=== PATIENT | male | born 1945 | race Caucasian/White ===

== ENCOUNTER 2023-09-26 09:59 | Emergency (ER) | payer OTHER, SELFPAY ==
[2023-09-26] VITALS (8 sets, daily range): BP systolic 141–164; BP diastolic 67–85; PULSE 56; O2SAT 95; BMI 40.6
--- NOTE | 2023-09-26 10:54 | ED.GENMED ---
History of Present Illness
General
Chief Complaint: Weakness
Source: patient, spouse and family
Time Seen by Provider: 09/26/23 10:38
Travel History
Have you had any contact with someone who has COVID-19?: Yes
Comment: patient
Do you have any symptoms of coronavirus? Fever > 100 degrees, chills, cough, shortness of breath, sore throat, loss of taste or smell, muscle aches, or headache?: No
History of Present Illness
History of Present Illness:
78-year-old male with a history of mild vascular dementia is brought to the emergency room by family for evaluation of significant weakness. Patient tested positive for COVID about 10 days ago. Over the course of the past 10 days he has been
having progressive weakness. He typically gets himself up out of bed, dresses himself is able to ambulate without any assistive devices. However currently he required help from his dressing. He is unable to walk without significant
assistance. Patient is slow to answer questions. He is not able to provide any detailed history. Patient was prescribed an inhaler by his primary care provider about a week ago.
Past History
Past History
ED Past Medical History: Cancer (Melanoma), CVA, GERD, Hypercholesterolemia, Psychiatric (Anxiety) and Other (RA)
ED Past Surgical History: Orthopedic and Other (Left carotid endarterectomy January 2017)
Patient has exhibited threatening behavior?: No
PSI?: No
Social History
Tobacco: Former smoker (Quit in 1979)
Alcohol: Occasional
Drug: None
Personal:
Living: with family
Employment: Retired
Family History
Family History: Other (Noncontributory)
Phy Exam
Physical Exam
Physical Exam:
General: Awake but slow to answer questions
Vitals: unremarkable
Head: Atraumatic
Eyes: Pupils equal, EOMI
Throat: Airway intact, no exudates
Neck: Trachea midline
Lungs: Expiratory wheezing bilaterally
Heart: Regular rate, no murmurs
Abd: Soft, Nontender, No pulsatile mass
Neuro: Nonfocal
Skin: Warm, dry, no rash
Extremities: pulses equal b/l, trace edema
Course
Orders/Labs/Results
Orders:
Orders
09/26/23 10:02
Electrocardiogram (*1) Urgent
Reason for Study: Fatigue / Weakness
EKG- Treatment ONCE
09/26/23 10:53
Electrocardiogram (*1) Stat
Reason for Study: Other
Other Reason for Exam: pneumonia
Cardiac Monitoring- Treatment ONCE
0.9% Sodium Chloride 500 ml [Nss] 500 ml IV BOLUS
Ipratropium/Albuterol Sulfate [Duoneb] 3 ml INH R NOW STA
CR Chest - 2 Views Urgent
Comment:
Reason For Exam: cough, sob,
09/26/23 11:22
Complete Blood Count/With Diff Urgent
Comprehensive Metabolic Panel Urgent
Procalcitonin Urgent
PCT Algorithmm Indication: Respiratory
09/26/23 11:27
Urinalysis Reflex To Culture Urgent
Date Specimen was Collected: 09/26/23
Time Specimen was Collected: 11:26
09/26/23 13:19
Case Management Consult ONCE
Case Management Consult: Discharge Planning
Physical Therapy Consult [Pt Eval And Treat] Urgent
Activity Level: As Tolerated
Abnormal Lab Results
09/26/23
11:22
RBC 3.70 L 10^6/uL
(4.70-6.10)
Hgb 11.4 L g/dL
(13.0-18.0)
Hct 33.1 L %
(39.0-52.0)
Eosinophils % 7.1 H %
(0-6)
Chloride 108 H mmol/L
(98-107)
ALT 68 H U/L
(0-50)
Total Protein 6.2 L g/dl
(6.3-8.2)
09/26/23 11:22
09/26/23 11:22
Vital Signs
Initial and Last Documented VS:
Initial Vital Signs
Temp Pulse Resp BP Pulse Ox
97.5 F 56 16 161/83 18
09/26/23 10:00 09/26/23 10:00 09/26/23 10:00 09/26/23 10:00 09/26/23 10:00
Last Documented Vital Signs
Temp Pulse Resp BP Pulse Ox
97.5 F 57 12 164/74 100
09/26/23 10:00 09/26/23 13:00 09/26/23 13:00 09/26/23 13:00 09/26/23 13:00
MDM/Problems Addressed
Differential Diagnosis Includes:
UTI, renal failure, pneumonia, deconditioning
MDM/Problems Addressed:
Patient. Workup here does not fact patient has developed some deconditioning due to recent superinfection. Nursing. Patient declined. Patient was open to the idea of physical therapy for case management and physical therapy came to evaluate the
patient. Ultimately patient has decided to forego in-home physical therapy as his daughter is an occupational therapist and can provide all blood rehabilitation for him. Of note her physical therapist stated the patient's gait reminded her of the
patient has Parkinson's disease. I will pass this information along to his primary care provider for further investigation into the possibility of Parkinson's disease.
*Radiology
Radiology exam reviewed: preliminary read by ED provider (On my personal review chest x-ray has no acute disease)
*Pulse Oximetry
Patient hypoxic: no
*EKG
Interpreted by ED Provider?: Yes
Interpretation: abnormal
Heart Rate: 55
Rate: bradycardiac
Rhythm: sinus
Sibley: normal axis
Interval: normal interval
QRS Pattern: normal QRS
Ischemia: no ischemia
*Software Sales Manager Interpretation
Rate: bradycardiac
Interpretation: abnormal
Rhythm: sinus
*Critical Care Note
Total Time (30-74mins, 75-104mins- exclusive of procedures): Not Applicable
Update Note
Update Note:
radiology notes pneumonia. I sent prescription for augmentin. Left message on his 's phone #
ED Attending Note
-
Portions of this chart may have been created with voice recognition software.� Occasional wrong word or��sound alike� substitutions may have occurred due to the inherent limitations of voice recognition software.
Discharge Plan
Departure
Patient Disposition: Home (Routine Discharge)
Date of Disposition: 09/26/23
Time of Disposition: 14:52
Patient with high blood pressure during this ER visit?: Yes
Condition: Good
Discharge Problem:
Generalized weakness
Instructions: Generalized Weakness (DC), BLOOD PRESSURE
Prescriptions:
New
benzonatate 100 mg capsule
100 mg PO TID PRN (Reason: Cough) Qty: 20 0RF
amoxicillin-pot clavulanate 875-125 mg tablet
1 tab PO BID Qty: 14 0RF
No Action
dutasteride-tamsulosin [Marivel] 1 EACH capsule, ER multiphase 24 hr
1 cap PO DAILY
aspirin 81 MG tablet,delayed release (DR/EC)
81 mg PO DAILY
zolpidem 10 MG tablet
10 mg PO HSPRN PRN (Reason: insomnia) Qty: 10 0RF
Patient Comments:
09/23/2022: per pdmp, last filled 06/12/21, 30 tabs [facility] days from [facility]
escitalopram oxalate 20 MG tablet
20 mg PO DAILY
atorvastatin 80 MG tablet
80 mg PO QPM
risperidone 0.5 MG tablet
0.5 mg PO DAILY
albuterol sulfate 90 mcg/actuation Hfa Aerosol Inhaler
2 puff INHALATION R Q6 PRN (Reason: sob/wheezing)
pramipexole [Mirapex ER] 4.5 mg Tablet Extended Release 24 Hr
9 mg PO HS
Referrals:
Sage Ayers MD [Family Provider] -
Interventions
Interventions:
*General Assessment Last Done: 09/26/23 12:42
*Neglect/Abuse Screening Last Done: 09/26/23 12:41
*ED COVID-19 Vaccine History Last Done: 09/26/23 10:00
ED- Cardiac Assessment Last Done: 09/26/23 12:43
ED- Neurological Assessment Last Done: 09/26/23 12:41
[2023-09-26] MEDS: NSS 500 IV (11:25)
[2023-09-26] MEDS: DUONEB 3 ML INH (11:26)
[2023-09-26 11:37] LABS: Urine Albumin Negative (Neg - Trace); Urine Bilirubin Negative (Negative); Urine Character Clear (Clear); Urine Color Yellow; Urine Glucose Negative (Negative); Urine Ketone Negative (Negative); Urine Leukocyte Negative (Negative); Urine Nitrite Negative (Negative); Urine Occult Blood Negative (Negative); Urine Urobilinogen Negative (Neg - 1+)
[2023-09-26 11:37] LABS: % Basophils 0.6 % (0-2); % Eosinophils 7.1 % (0-6); % Immature Granulocytes 0.5 % (0-0.5); % Lymphocytes 24.8 % (20.5-51.1); % Monocytes 7.3 % (1.7-9.3); % Neutrophils 59.7 % (42.2-75.2); Absolute Basophils 0.1 10^3/uL (0-0.2); Absolute Eosinophils 0.6 10^3/uL (0-0.7); Absolute Monocytes 0.6 10^3/uL (0.1-0.6); Absolute Neutrophils 4.8 10^3/uL (1.4-6.5); Hematocrit 33.1 % (39.0-52.0); Hemoglobin 11.4 g/dL (13.0-18.0); Mean Corp Hgb Conc. 34.4 g/dL (33.0-37.0); Mean Corpuscular Hgb 30.8 pg (27.0-31.0); Mean Corpuscular Volume 89.5 fL (80.0-94.0); Mean Platelet Volume 9.6 fL (7.4-10.4); Nucleated Red Blood Cells % 0 % (-); Platelet Count 245 10^3/uL (130-400); Red Cell Dist. Width 12.3 % (11.5-14.5)
[2023-09-26 11:58] LABS: ALT (SGPT) 68 U/L (0-50); AST (SGOT) 54 U/L (17-59); Albumin 3.6 g/dl (3.5-5.0); Alkaline Phosphatase 115 U/L (38-126); Blood Urea Nitrogen 20 mg/dl (9-20); Calcium 8.6 mg/dl (8.4-10.2); Carbon Dioxide 29 mmol/L (22-30); Chloride 108 mmol/L (98-107); Estimated Creatinine Clearance 45 ml/min; Glucose 93 mg/dl (70-99); Potassium 4.8 mmol/L (3.5-5.1); Sodium 138 mmol/L (135-145); Total Bilirubin 0.4 mg/dl (0.2-1.3); Total Protein 6.2 g/dl (6.3-8.2); eGFR > 60.00
[2023-09-26 12:34] LABS: Procalcitonin 0.05 ng/ml (0.0-0.25)
--- NOTE | 2023-09-26 14:40 | CM ---
CM received consult for discharge planning. CM spoke with PT, discussed recommendation for home health, family not interested in SNF. CM met with patient and , initial assessment completed. Patient reports he lives with his who is always
home. Patients home is a single story residence, two steps to enter. Patient reports having a walker and shower rails. Patient denies history of VN or SNF. Patient confirms PCP Sage Ayers, pharmacy [facility]. CM discussed PT recommendation of
home health. Per patient and , their daughter is an OT who lives 20 minutes away and can work with patient. Patient declining home health at this time. CM discussed primary doctor can order VN if patient returns home and changes mind. Patient
and report they have good support from family and a neighbor. CM updated Hospitalist. CM will continue to follow for discharge planning needs.
Plan; home no needs, declining home health.
== END 2023-09-26 15:44 | disposition home or self-care (01) ==
LOC: EMR 09:59
PROVIDERS: EMERGENCY PHYSICIAN Emergency Medicine; FAMILY PHYSICIAN Internal Medicine
DX: R53.1 Weakness (principal); R26.2 Difficulty in walking, not elsewhere classified; U07.1 COVID-19; R03.0 Elevated blood-pressure reading, without diagnosis of hypertension; J18.9 Pneumonia, unspecified organism; F01.50 Vascular dementia, unspecified severity, without behavioral disturbance, psychotic disturbance, mood disturbance, and anxiety; G20.A1 Parkinson's disease without dyskinesia, without mention of fluctuations; E78.00 Pure hypercholesterolemia, unspecified; K21.9 Gastro-esophageal reflux disease without esophagitis; M06.9 Rheumatoid arthritis, unspecified; G47.30 Sleep apnea, unspecified; K57.90 Diverticulosis of intestine, part unspecified, without perforation or abscess without bleeding; K58.9 Irritable bowel syndrome, unspecified; N40.0 Benign prostatic hyperplasia without lower urinary tract symptoms; M19.90 Unspecified osteoarthritis, unspecified site; M79.7 Fibromyalgia; G25.81 Restless legs syndrome; G62.9 Polyneuropathy, unspecified; F41.9 Anxiety disorder, unspecified; F32.A Depression, unspecified; M43.22 Fusion of spine, cervical region; Z79.82 Long term (current) use of aspirin; Z85.820 Personal history of malignant melanoma of skin; Z86.73 Personal history of transient ischemic attack (TIA), and cerebral infarction without residual deficits; Z87.01 Personal history of pneumonia (recurrent); Z87.891 Personal history of nicotine dependence
CPT/HCPCS: 99284; 96360; 96361; 94640; 71046; 80053; 81003; 84145; 85025; 93005

== ENCOUNTER → 2023-11-08 09:00 | Outpatient (REF) | payer OTHER, SELFPAY | LOC: RAD 09:00 | PROVIDERS: ATTENDING PHYSICIAN Internal Medicine | DX: J18.9 Pneumonia, unspecified organism (principal); R05.3 Chronic cough | CPT/HCPCS: 71046; 74230; 92611 ==

== ENCOUNTER → 2024-02-02 15:33 | Outpatient (REF) | payer OTHER, SELFPAY | LOC: RAD 15:33 | PROVIDERS: ATTENDING PHYSICIAN Internal Medicine | DX: R05.3 Chronic cough (principal); Z91.89 Other specified personal risk factors, not elsewhere classified | CPT/HCPCS: 71046 ==

== ENCOUNTER 2024-02-13 11:11 | Outpatient (RCR) | payer OTHER, SELFPAY | END 2024-02-13 23:59 | disposition home or self-care (01) | LOC: RST 11:11 | PROVIDERS: ATTENDING PHYSICIAN Internal Medicine | DX: R13.12 Dysphagia, oropharyngeal phase (principal); R05.3 Chronic cough; Z91.89 Other specified personal risk factors, not elsewhere classified | CPT/HCPCS: 92610 ==

== ENCOUNTER 2024-04-09 09:34 | Emergency (ER) | payer OTHER, SELFPAY ==
[2024-04-09 09:48] VITALS: BP 132/80
--- NOTE | 2024-04-09 10:10 | ED.GENMED ---
History of Present Illness
General
Chief Complaint: Abdominal Symptoms
Source: patient
Exam Limitations: none
Time Seen by Provider: 04/09/24 09:50
History of Present Illness
History of Present Illness:
78-year-old male presents with abdominal pain nausea and vomiting starting 2 to 3 days ago. He notes normal bowel movements. He denies fever or chest pain. The pain is in the center upper abdomen. He states he cannot keep anything in. No known
sick contacts. No other complaints at this time
Past History
Past History
ED Past Medical History: Cancer (Melanoma), CVA, GERD, Hypercholesterolemia, Psychiatric (Anxiety) and Other (RA)
ED Past Surgical History: Orthopedic and Other (Left carotid endarterectomy January 2017)
Patient has exhibited threatening behavior?: No
PSI?: No
Social History
Tobacco: Former smoker (Quit in 1979)
Alcohol: Occasional
Drug: None
Personal:
Living: with family
Employment: Retired
Family History
Family History: Other (Noncontributory)
Phy Exam
Physical Exam
Physical Exam:
General: Well-appearing male no acute respiratory distress
HEENT: Normocephalic sclera anicteric supple
Heart: Regular rate and rhythm
Lungs: Clear no wheeze
Abdomen is soft tender to the epigastric and mid abdomen. No guarding rebound normal bowel
Extremities: No cyanosis or edema
Course
Orders/Labs/Results
Orders:
Orders
04/09/24 10:03
0.9% Sodium Chloride 1000 ml [Nss] 1,000 ml IV BOLUS
Ondansetron Injectable [Zofran] 4 mg IV NOW STA
04/09/24 10:05
CT Abd/pelvis W Iv Cont Urgent
Comment:
Reason For Exam: abdominal pain, vomiting
04/09/24 10:31
Complete Blood Count/With Diff Urgent
Comprehensive Metabolic Panel Urgent
Lipase Urgent
04/09/24 12:19
Pantoprazole [Protonix IV] 40 mg IV NOW STA
Abnormal Lab Results
04/09/24
10:31
RBC 3.95 L 10^6/uL
(4.70-6.10)
Hgb 12.4 L g/dL
(13.0-18.0)
Hct 36.1 L %
(39.0-52.0)
MCH 31.4 H pg
(27.0-31.0)
Absolute Neuts (auto) 7.0 H 10^3/uL
(1.4-6.5)
Lymphocytes % 18.5 L %
(20.5-51.1)
Glucose 109 H mg/dl
(70-99)
04/09/24 10:31
04/09/24 10:31
Vital Signs
Initial and Last Documented VS:
Initial Vital Signs
Temp Pulse Resp BP Pulse Ox
98.1 F 79 16 132/80 98
04/09/24 09:48 04/09/24 09:48 04/09/24 09:48 04/09/24 09:48 04/09/24 09:48
Last Documented Vital Signs
Temp Pulse Resp BP Pulse Ox
98.1 F 65 21 141/84 98
04/09/24 09:48 04/09/24 12:45 04/09/24 12:45 04/09/24 12:42 04/09/24 12:45
MDM/Problems Addressed
Differential Diagnosis Includes:
Abdominal pain with vomiting. Question viral illness gastritis versus bowel obstruction versus biliary colic
Check labs. Fluids ordered. CT pending
*Critical Care Note
Total Time (30-74mins, 75-104mins- exclusive of procedures): Not Applicable
Update Note
Update Note:
CT demonstrates distal esophageal thickening to suggest esophagitis. Patient reexamined labs reviewed without significant finding. Feeling better. Recommend Protonix at home and GI follow-up. Stable for
ED Attending Note
-
Portions of this chart may have been created with voice recognition software.� Occasional wrong word or��sound alike� substitutions may have occurred due to the inherent limitations of voice recognition software.
Discharge Plan
Departure
Patient Disposition: Home (Routine Discharge)
Date of Disposition: 04/09/24
Time of Disposition: 13:26
Patient with high blood pressure during this ER visit?: No
Discharge Problem:
Esophagitis
Instructions: Esophagitis
Prescriptions:
New
pantoprazole [Protonix] [address] for susp in packet
40 mg PO DAILY Qty: 30 0RF
No Action
dutasteride-tamsulosin [Marivel] 1 EACH capsule, ER multiphase 24 hr
1 cap PO DAILY
aspirin 81 MG tablet,delayed release (DR/EC)
81 mg PO DAILY
zolpidem 10 MG tablet
10 mg PO HSPRN PRN (Reason: insomnia) Qty: 10 0RF
Patient Comments:
09/23/2022: per pdmp, last filled 06/12/21, 30 tabs [facility]
escitalopram oxalate 20 MG tablet
20 mg PO DAILY
atorvastatin 80 MG tablet
80 mg PO QPM
risperidone 0.5 MG tablet
0.5 mg PO DAILY
albuterol sulfate 90 mcg/actuation Hfa Aerosol Inhaler
2 puff INHALATION R Q6 PRN (Reason: sob/wheezing)
pramipexole [Mirapex ER] 4.5 mg Tablet Extended Release 24 Hr
9 mg PO HS
benzonatate 100 mg capsule
100 mg PO TID PRN (Reason: Cough) Qty: 20 0RF
amoxicillin-pot clavulanate 875-125 mg tablet
1 tab PO BID Qty: 14 0RF
Referrals:
Sage Ayers MD [Family Provider] -
Activity Restrictions/Additional Instructions:
Drink clear liquids. Eat a bland diet. Use antacid as prescribed. Return if worse otherwise follow-up with GI
Interventions
Interventions:
*Risk Screen - Suicide Last Done: 04/09/24 09:48
*General Assessment Last Done: 04/09/24 10:33
*Neglect/Abuse Screening Last Done: 04/09/24 09:48
*ED COVID-19 Vaccine History Last Done: 04/09/24 10:33
[facility]-Ujuwvv-[facility]aim[facility] Assessment Last Done: 04/09/24 12:00
Discharge Date and Time
Print Language: NIGERIAN
[2024-04-09 10:20] VITALS: BP 127/78
[2024-04-09] MEDS: NSS 1000 IV (10:30)
[2024-04-09 10:33] VITALS: BMI 25.0
[2024-04-09] MEDS: ZOFRAN 4 MG IV (10:38)
[2024-04-09 10:53] LABS: % Basophils 0.4 % (0-2); % Eosinophils 2.7 % (0-6); % Immature Granulocytes 0.2 % (0-0.5); % Lymphocytes 18.5 % (20.5-51.1); % Monocytes 5.2 % (1.7-9.3); Absolute Eosinophils 0.3 10^3/uL (0-0.7); Absolute Lymphocytes 1.8 10^3/uL (1.2-3.4); Absolute Monocytes 0.5 10^3/uL (0.1-0.6); Hematocrit 36.1 % (39.0-52.0); Hemoglobin 12.4 g/dL (13.0-18.0); Mean Corp Hgb Conc. 34.3 g/dL (33.0-37.0); Mean Corpuscular Hgb 31.4 pg (27.0-31.0); Mean Corpuscular Volume 91.4 fL (80.0-94.0); Mean Platelet Volume 9.6 fL (7.4-10.4); Nucleated Red Blood Cells % 0 % (-); Platelet Count 249 10^3/uL (130-400); Red Blood Cell Count 3.95 10^6/uL (4.70-6.10); Red Cell Dist. Width 12.6 % (11.5-14.5); White Blood Cell Count 9.6 10^3/uL (4.8-10.8)
[2024-04-09 11:00] VITALS: BP 116/66
[2024-04-09 11:05] LABS: ALT (SGPT) 22 U/L (0-50); AST (SGOT) 28 U/L (17-59); Alkaline Phosphatase 81 U/L (38-126); Blood Urea Nitrogen 14 mg/dl (9-20); Calcium 9.3 mg/dl (8.4-10.2); Carbon Dioxide 28 mmol/L (22-30); Chloride 104 mmol/L (98-107); Estimated Creatinine Clearance 76 ml/min; Glucose 109 mg/dl (70-99); Lipase 124 U/L (23-300); Sodium 142 mmol/L (135-145); Total Bilirubin 1.1 mg/dl (0.2-1.3); Total Protein 6.4 g/dl (6.3-8.2); eGFR > 60.00
[2024-04-09] MEDS: PROTONIX IV 40 MG IV (12:39)
[2024-04-09 12:42] VITALS: BP 141/84
[2024-04-09 13:00] VITALS: BP 143/69
== END 2024-04-09 13:48 | disposition home or self-care (01) ==
LOC: EMR 09:34
PROVIDERS: Physician Assistant; EMERGENCY PHYSICIAN Student in an Organized Health Care Education/Training Program; FAMILY PHYSICIAN Internal Medicine
DX: K20.90 Esophagitis, unspecified without bleeding (principal); R10.10 Upper abdominal pain, unspecified; R11.2 Nausea with vomiting, unspecified; E78.00 Pure hypercholesterolemia, unspecified; F41.9 Anxiety disorder, unspecified; K21.00 Gastro-esophageal reflux disease with esophagitis, without bleeding; M06.9 Rheumatoid arthritis, unspecified; Z85.820 Personal history of malignant melanoma of skin; Z86.73 Personal history of transient ischemic attack (TIA), and cerebral infarction without residual deficits; Z87.891 Personal history of nicotine dependence; Z79.82 Long term (current) use of aspirin
CPT/HCPCS: 99285; 96375; 96361; 96374; 74177; 80053; 83690; 85025; Q9967

== ENCOUNTER 2024-08-02 08:20 | Outpatient (RCR) | payer OTHER, SELFPAY | END 2024-08-02 23:59 | disposition home or self-care (01) | LOC: RST 08:20 | PROVIDERS: ATTENDING PHYSICIAN Internal Medicine | DX: R13.12 Dysphagia, oropharyngeal phase (principal); Z86.73 Personal history of transient ischemic attack (TIA), and cerebral infarction without residual deficits | CPT/HCPCS: 92526; 92610 ==

== ENCOUNTER → 2024-08-09 08:26 | Outpatient (REF) | payer OTHER, SELFPAY | LOC: RST 08:26 | PROVIDERS: ATTENDING PHYSICIAN Internal Medicine | DX: R13.12 Dysphagia, oropharyngeal phase (principal) | CPT/HCPCS: 74230; 92611 ==

== ENCOUNTER 2024-08-16 18:18 | Inpatient (IN) | payer OTHER, SELFPAY ==
[2024-08-16] VITALS (15 sets, daily range): BP systolic 114–194; BP diastolic 59–88; BMI 23.5
[2024-08-16 15:03] LABS: % Basophils 0.2 % (0-2); % Eosinophils 1.7 % (0-6); % Immature Granulocytes 0.3 % (0-0.5); % Lymphocytes 5.1 % (20.5-51.1); % Monocytes 2.8 % (1.7-9.3); % Neutrophils 89.9 % (42.2-75.2); Absolute Eosinophils 0.2 10^3/uL (0-0.7); Absolute Lymphocytes 0.6 10^3/uL (1.2-3.4); Absolute Monocytes 0.3 10^3/uL (0.1-0.6); Absolute Neutrophils 10.3 10^3/uL (1.4-6.5); Hematocrit 36.6 % (39.0-52.0); Hemoglobin 12.5 g/dL (13.0-18.0); Mean Corp Hgb Conc. 34.2 g/dL (33.0-37.0); Mean Corpuscular Hgb 30.6 pg (27.0-31.0); Mean Corpuscular Volume 89.7 fL (80.0-94.0); Mean Platelet Volume 9.7 fL (7.4-10.4); Nucleated Red Blood Cells % 0 % (-); Platelet Count 236 10^3/uL (130-400); Red Blood Cell Count 4.08 10^6/uL (4.70-6.10); Red Cell Dist. Width 12.7 % (11.5-14.5); White Blood Cell Count 11.4 10^3/uL (4.8-10.8)
[2024-08-16 15:08] LABS: Urine Albumin 1+ (Neg - Trace); Urine Bilirubin Negative (Negative); Urine Character Clear (Clear); Urine Color Yellow; Urine Glucose Negative (Negative); Urine Ketone 1+ (Negative); Urine Leukocyte Negative (Negative); Urine Nitrite Negative (Negative); Urine Occult Blood Negative (Negative); Urine Urobilinogen Negative (Neg - 1+)
[2024-08-16 15:13] LABS: ALT (SGPT) 21 U/L (0-50); AST (SGOT) 27 U/L (17-59); Albumin 3.6 g/dl (3.5-5.0); Alkaline Phosphatase 85 U/L (38-126); Blood Urea Nitrogen 20 mg/dl (9-20); Calcium 9.2 mg/dl (8.4-10.2); Carbon Dioxide 25 mmol/L (22-30); Chloride 107 mmol/L (98-107); Estimated Creatinine Clearance 51 ml/min; Glucose 102 mg/dl (70-99); Potassium 3.9 mmol/L (3.5-5.1); Sodium 140 mmol/L (135-145); Total Bilirubin 0.8 mg/dl (0.2-1.3); eGFR > 60.00
[2024-08-16 15:25] LABS: Urine Squamous Cell 0-2 /LPF (Few)
[2024-08-16 15:26] LABS: Amphetamines Negative (Negative); Barbiturates Negative (Negative); Benzodiazepines Negative (Negative); Buprenorphine Negative (Negative); Cocaine Negative (Negative); Marijuana Negative (Negative); Methadone Negative (Negative); Methamphetamines Negative (Negative); Opiates Negative (Negative); Phencyclidine Negative (Negative); Tricyclic Antidepressants Negative (Negative); Urine Bacteria Few (Negative); Urine Red Blood Cell 0-2 /HPF (0-2); Urine White Cell 0-2 /HPF (0-5)
--- NOTE | 2024-08-16 15:27 | ED.GENMED ---
History of Present Illness
<Alize Espinoza PA-C - Last Filed: 08/16/24 23:19>
General
Chief Complaint: Change in Mental Status
Source: patient and family
Exam Limitations: altered mental status and dementia
Time Seen by Provider: 08/16/24 15:00
Nursing documentation reviewed up to this point in time: agreed with
History of Present Illness
History of Present Illness:
Patient is an 79-year-old male with history dementia, Parkinson's, CVA, hyperlipidemia presenting to the emergency department via EMS after unwitnessed fall. Patient unable to contribute much to history given altered mental status and history of
dementia. Patient's and daughter at bedside assisting with history. Apparently patient sustained a fall while in the bathroom today around 1:30 PM. Patient's did not witness the fall. It is unknown if patient lost consciousness or hit
head. However�patient has seemed somewhat altered, with slurred speech since the fall per his family. He is more confused than usual.
Patient's states the last time she saw him completely at his baseline was around 11 AM this morning. They do state that patient expressed last week that he 'wanted to end his life '. They are concerned that he may have taken a medication as
he is on this in the past
Patient denies any current complaints including headache, neck pain, chest pain, shortness of breath, extremity pain.
Patient is on any blood thinners
Past History
<Alize Espinoza PA-C - Last Filed: 08/16/24 23:19>
Past History
ED Past Medical History: Cancer (Melanoma), CVA, GERD, Hypercholesterolemia, Psychiatric (Anxiety) and Other (RA)
ED Past Surgical History: Orthopedic and Other (Left carotid endarterectomy January 2017)
Patient has exhibited threatening behavior?: No
PSI?: No
Social History
Tobacco: Former smoker (Quit in 1979)
Alcohol: Occasional
Drug: None
Personal:
Living: with family
Employment: Retired
Family History
Family History: Other (Noncontributory)
Review of Systems
<Alize Espinoza PA-C - Last Filed: 08/16/24 23:19>
Review of Systems
Allergies reviewed?: Yes
All Other Systems: ROS reviewed and negative except as documented in HPI and ROS
Phy Exam
<Alize Espinoza PA-C - Last Filed: 08/16/24 23:19>
Physical Exam
Physical Exam:
Vitals: Hypertensive, otherwise stable vital signs. Afebrile
General: Patient is sleepy but arousable to verbal stimuli
Skin: Warm and dry, no rashes or lesions
Head: Normocephalic. Mild abrasion to left lateral cheek
Eyes: Sclera nonicteric. EOMs intact. No nystagmus.
Throat: Protecting airway
Neck: Normal ROM, no cervical spine tenderness, no meningismus
Cardiac: Regular rate and rhythm, no murmurs. No anterior chest wall tenderness
Pulm: Normal respiratory effort, no wheezes, rales, rhonchi heard on exam. O2 saturation 94 on room air
Abdomen: Abdomen soft no abdominal tenderness.
Extremities: No evidence of cyanosis or edema. Bilateral upper and lower extremities atraumatic and nontender with full range of motion
Neuro: AAOx [address], not time. Mild slurring of speech. Drowsy but arousable to verbal stimuli. Strength 5 out of 5 in bilateral upper and lower extremities. Sensation fully intact.
Psychiatric: Normal affect.
Scores
<Alize Espinoza PA-C - Last Filed: 08/16/24 23:19>
NIH Stroke Score
Level of Consciousness: 1 - Arousable
LOC Questions: 1-Answers one correctly
LOC Commands: 0-Performs both correctly
Best Horizontal Gaze: 0-Normal
Visual Sims: 0=Normal, no visual loss
Facial Palsy: 0=Normal, symmetrical
Motor - Right Arm: 0=No drift 10 seconds
Motor - Left Arm: 0=No drift 10 seconds
Motor - Right Le-No drift 5 seconds
Motor - Left Le-No drift 5 seconds
Limb Ataxia: 0-Absent
Sensation: 0-Normal
Best Language: 0-No aphasia
Dysarthria: 1-Mild slurring
Extinction and Inattention: 0-No abnormality
Total Score:: 3
Course
<Alize Espinoza PA-C - Last Filed: 08/16/24 23:19>
Orders/Labs/Results
Orders:
Orders
08/16/24 14:41
Electrocardiogram (*1) Urgent
Reason for Study: Other
Other Reason for Exam: Possible Sepsis
Cardiac Monitoring- Treatment ONCE
EKG- Treatment ONCE
IV Insert/Care/Rem.- Treatment PRN
Straight cath- Treatment ONCE
08/16/24 14:50
Acetaminophen Urgent
Comment: ADD ON
Alcohol Urgent
Complete Blood Count/With Diff Urgent
Comprehensive Metabolic Panel Urgent
Salicylate Urgent
Comment: ADD ON
Urinalysis Reflex To Culture Urgent
Date Specimen was Collected: 08/16/24
Time Specimen was Collected: 14:41
Urine Drug Abuse Screen Urgent
Date Specimen was Collected: 08/16/24
Time Specimen was Collected: 14:42
Urine Microscopic Reflex Cult Urgent
08/16/24 15:25
CT HEAD STROKE ALERT W/o Cont Urgent
Comment:
Reason For Exam: fall, slurred speech
08/16/24 15:26
CT Cervical Spine W/o Iv Contr Urgent
Comment:
Reason For Exam: unwittnessed fall
CT Chest/abd/pel W Iv Cont Urgent
Reason For Exam: unwitnessed fall
Cardiac Monitoring- Treatment ONCE
08/16/24 15:29
Add On- LAB Urgent
Tests Added?: tylenol, aspirin, alcohol
08/16/24 16:22
CT Head & Neck Angio W/wo IV Stat
Comment:
Reason For Exam: stenosis
08/16/24 16:40
Troponin I Urgent
08/16/24 17:34
Aspirin 300 mg RECTAL DAILYPRN PRN
Aspirin Chewable [Low Strength Aspirin] 81 mg PO NOW STA
08/16/24 17:43
Admit/Transfer Patient As Directed
Co-Sign Provider:
Level of Care: Inpatient admission
Assign to:: Telemetry
Physician / Group: Elena Bills
Diagnosis: AMS
Reason for Telemetry: CVA/TIA
Date to Stop Telemetry: 08/19/24
Time to Stop Telemetry: 11:00
Reason for Hospitalization: AMS, CVA versus drug intoxication
Expected length of stay greater than two midnights?: Yes
ELOS- Estimated Length of Stay in days: 3
I certify the patient meets the requirements for IP care: Yes
PRN Pain Medication Management As Directed
May give lesser potent ordered pain med per pt: Yes
preference::
Protocol:: Medication orders for pain may be administered in a
manner that supports deferring to patient preference
when the pt is:
- Requesting an ordered lesser potent pain medication.
Least to most potent pain medications are defined
as: acetaminophen < NSAID < tramadol < opioids
(morphine, oxycodone, hydromorphone).
- Requesting a lesser dose of the same medication IF
ORDERED.
- Requesting a less intrusive route of administration
if both routes are prescribed by the provider (PO <
IV).
08/16/24 17:44
Code Status As Directed
Resuscitation Status: Do not resuscitate
Reached after discussion with pt or family/Healthcare POA: Yes
DNR Bracelet Application ONCE
08/16/24 18:30
COVID-19 Antigen Routine
Source: Nasal Swab
Influenza A+B Rapid Molecular Routine
FATEMEH Source: Nasal Swab
Specimen Description:
08/16/24 20:01
Acetaminophen [Tylenol/Feverall] 650 mg RECTAL Q4HPRN PRN
Acetaminophen [Tylenol] 650 mg PO Q4HPRN PRN
Enoxaparin Sodium [Lovenox] 40 mg SC QPM
Polyethylene Glycol Powder [Miralax] 17 grams PO DAILYPRN PRN
08/16/24 20:01
Case Management Consult ONCE
Case Management Consult: Discharge Planning
Comment: stroke/tia
DIETARY CONSULT Routine
Reason for Consult: stroke/TIA
NEUROLOGY CONSULT Urgent
Consulting Provider: Tiana Whitney
Was physician already notified: Yes
Activity As Directed
Activity Level: As Tolerated
NIH Stroke Scale As Directed
Directions: Per protocol
Comment: every shift and with any change in condition or mental status
Neurological Checks As Directed
Frequency: q4h
Additional Instructions:: q4h x 24h upon admission to the floor, then qshift & with any change in condition
and mental status
Patient Education As Directed
Type: Stroke education packet
Comment: provide to patient and family
Swallow Screening CVA/TIA ONLY As Directed
Comment: NPO until swallowing screening completed
If patient FAILS swallow screening:: NPO, Speech Therapy consult, Aspiration Precautions
If patient PASSES swallow screening, diet:: Cholesterol Lowering
Vital Signs As Directed
Frequency: Per unit guidelines
Ot Eval And Treat Routine
Pt Eval And Treat Routine
Activity Level: As Tolerated
Speech Therapy Eval & Treat Routine
DX Deep Vein Thrombosis Video Routine
08/17/24 06:00
Basic Metabolic Panel IN AM
Cardiovascular Evaluation IN AM
Complete Blood Count/No Diff IN AM
08/17/24 08:00
Aspirin Low Dose EC [Aspir Low (Enteric Coated)] 81 mg PO DAILY
Atorvastatin [Lipitor] 40 mg PO DAILY
Escitalopram Oxalate [Lexapro] 20 mg PO DAILY
Pantoprazole [Protonix] 40 mg PO DAILY
08/19/24 11:00
DC Protocol for Telemetry ONCE
Abnormal Lab Results
08/16/24
14:50
WBC 11.4 H 10^3/uL
(4.8-10.8)
RBC 4.08 L 10^6/uL
(4.70-6.10)
Hgb 12.5 L g/dL
(13.0-18.0)
Hct 36.6 L %
(39.0-52.0)
Absolute Neuts (auto) 10.3 H 10^3/uL
(1.4-6.5)
Absolute Lymphs (auto) 0.6 L 10^3/uL
(1.2-3.4)
Neutrophils % 89.9 H %
(42.2-75.2)
Lymphocytes % 5.1 L %
(20.5-51.1)
Glucose 102 H mg/dl
(70-99)
Total Protein 6.0 L g/dl
(6.3-8.2)
Urine Ketones 1+ A
(Negative)
Urine Bacteria (Reflex) Few A
(Negative)
Urine Albumin (Reflex) 1+ A
(Neg - Trace)
Salicylates < 1.0 L mg/dl
(2.0-20.0)
Acetaminophen < 10 L ug/ml
(10-30)
08/16/24 14:50
08/16/24 14:50
Vital Signs
Initial and Last Documented VS:
Initial Vital Signs
BP
160/83
08/16/24 14:34
Last Documented Vital Signs
Temp Pulse Resp BP Pulse Ox
99.0 F 74 16 127/59 95
08/16/24 21:19 08/16/24 21:19 08/16/24 21:19 08/16/24 21:19 08/16/24 21:19
<Shimon Loving MD - Last Filed: 08/16/24 15:38>
Orders/Labs/Results
Orders:
Orders
08/16/24 14:41
Electrocardiogram (*1) Urgent
Reason for Study: Other
Other Reason for Exam: Possible Sepsis
Cardiac Monitoring- Treatment ONCE
EKG- Treatment ONCE
IV Insert/Care/Rem.- Treatment PRN
Straight cath- Treatment ONCE
08/16/24 14:50
Acetaminophen Urgent
Comment: ADD ON
Alcohol Urgent
Complete Blood Count/With Diff Urgent
Comprehensive Metabolic Panel Urgent
Salicylate Urgent
Comment: ADD ON
Urinalysis Reflex To Culture Urgent
Date Specimen was Collected: 08/16/24
Time Specimen was Collected: 14:41
Urine Drug Abuse Screen Urgent
Date Specimen was Collected: 08/16/24
Time Specimen was Collected: 14:42
Urine Microscopic Reflex Cult Urgent
08/16/24 15:25
CT HEAD STROKE ALERT W/o Cont Urgent
Comment:
Reason For Exam: fall, slurred speech
08/16/24 15:26
CT Cervical Spine W/o Iv Contr Urgent
Comment:
Reason For Exam: unwittnessed fall
CT Chest/abd/pel W Iv Cont Urgent
Reason For Exam: unwitnessed fall
Cardiac Monitoring- Treatment ONCE
08/16/24 15:29
Add On- LAB Urgent
Tests Added?: tylenol, aspirin, alcohol
08/16/24 16:22
CT Head & Neck Angio W/wo IV Stat
Comment:
Reason For Exam: stenosis
08/16/24 16:40
Troponin I Urgent
08/16/24 17:34
Aspirin 300 mg RECTAL DAILYPRN PRN
Aspirin Chewable [Low Strength Aspirin] 81 mg PO NOW STA
08/16/24 17:43
Admit/Transfer Patient As Directed
Co-Sign Provider:
Level of Care: Inpatient admission
Assign to:: Telemetry
Physician / Group: Elena Bills
Diagnosis: AMS
Reason for Telemetry: CVA/TIA
Date to Stop Telemetry: 08/19/24
Time to Stop Telemetry: 11:00
Reason for Hospitalization: AMS, CVA versus drug intoxication
Expected length of stay greater than two midnights?: Yes
ELOS- Estimated Length of Stay in days: 3
I certify the patient meets the requirements for IP care: Yes
PRN Pain Medication Management As Directed
May give lesser potent ordered pain med per pt: Yes
preference::
Protocol:: Medication orders for pain may be administered in a
manner that supports deferring to patient preference
when the pt is:
- Requesting an ordered lesser potent pain medication.
Least to most potent pain medications are defined
as: acetaminophen < NSAID < tramadol < opioids
(morphine, oxycodone, hydromorphone).
- Requesting a lesser dose of the same medication IF
ORDERED.
- Requesting a less intrusive route of administration
if both routes are prescribed by the provider (PO <
IV).
08/16/24 17:44
Code Status As Directed
Resuscitation Status: Do not resuscitate
Reached after discussion with pt or family/Healthcare POA: Yes
DNR Bracelet Application ONCE
08/16/24 18:30
COVID-19 Antigen Routine
Source: Nasal Swab
Influenza A+B Rapid Molecular Routine
FATEMEH Source: Nasal Swab
Specimen Description:
08/16/24 20:01
Acetaminophen [Tylenol/Feverall] 650 mg RECTAL Q4HPRN PRN
Acetaminophen [Tylenol] 650 mg PO Q4HPRN PRN
Enoxaparin Sodium [Lovenox] 40 mg SC QPM
Polyethylene Glycol Powder [Miralax] 17 grams PO DAILYPRN PRN
08/16/24 20:01
Case Management Consult ONCE
Case Management Consult: Discharge Planning
Comment: stroke/tia
DIETARY CONSULT Routine
Reason for Consult: stroke/TIA
NEUROLOGY CONSULT Urgent
Consulting Provider: Tiana Whitney
Was physician already notified: Yes
Activity As Directed
Activity Level: As Tolerated
NIH Stroke Scale As Directed
Directions: Per protocol
Comment: every shift and with any change in condition or mental status
Neurological Checks As Directed
Frequency: q4h
Additional Instructions:: q4h x 24h upon admission to the floor, then qshift & with any change in condition
and mental status
Patient Education As Directed
Type: Stroke education packet
Comment: provide to patient and family
Swallow Screening CVA/TIA ONLY As Directed
Comment: NPO until swallowing screening completed
If patient FAILS swallow screening:: NPO, Speech Therapy consult, Aspiration Precautions
If patient PASSES swallow screening, diet:: Cholesterol Lowering
Vital Signs As Directed
Frequency: Per unit guidelines
Ot Eval And Treat Routine
Pt Eval And Treat Routine
Activity Level: As Tolerated
Speech Therapy Eval & Treat Routine
DX Deep Vein Thrombosis Video Routine
08/17/24 06:00
Basic Metabolic Panel IN AM
Cardiovascular Evaluation IN AM
Complete Blood Count/No Diff IN AM
08/17/24 08:00
Aspirin Low Dose EC [Aspir Low (Enteric Coated)] 81 mg PO DAILY
Atorvastatin [Lipitor] 40 mg PO DAILY
Escitalopram Oxalate [Lexapro] 20 mg PO DAILY
Pantoprazole [Protonix] 40 mg PO DAILY
08/19/24 11:00
DC Protocol for Telemetry ONCE
Abnormal Lab Results
08/16/24
14:50
WBC 11.4 H 10^3/uL
(4.8-10.8)
RBC 4.08 L 10^6/uL
(4.70-6.10)
Hgb 12.5 L g/dL
(13.0-18.0)
Hct 36.6 L %
(39.0-52.0)
Absolute Neuts (auto) 10.3 H 10^3/uL
(1.4-6.5)
Absolute Lymphs (auto) 0.6 L 10^3/uL
(1.2-3.4)
Neutrophils % 89.9 H %
(42.2-75.2)
Lymphocytes % 5.1 L %
(20.5-51.1)
Glucose 102 H mg/dl
(70-99)
Total Protein 6.0 L g/dl
(6.3-8.2)
Urine Ketones 1+ A
(Negative)
Urine Bacteria (Reflex) Few A
(Negative)
Urine Albumin (Reflex) 1+ A
(Neg - Trace)
Salicylates < 1.0 L mg/dl
(2.0-20.0)
Acetaminophen < 10 L ug/ml
(10-30)
08/16/24 14:50
08/16/24 14:50
Vital Signs
Initial and Last Documented VS:
Initial Vital Signs
BP
160/83
08/16/24 14:34
Last Documented Vital Signs
Temp Pulse Resp BP Pulse Ox
99.0 F 74 16 127/59 95
08/16/24 21:19 08/16/24 21:19 08/16/24 21:19 08/16/24 21:19 08/16/24 21:19
<Alize Espinoza PA-C - Last Filed: 08/16/24 23:19>
MDM/Problems Addressed
Differential Diagnosis Includes:
Not limited to: Arrhythmia, CVA/TIA, medication overdose, mechanical fall, UTI, electrolyte imbalance
MDM/Problems Addressed:
79-year-old male presenting after unwitnessed fall at home and found to be lethargic with mild slurred speech which initially occurred around 11:30 AM. No known loss of consciousness. Patient denies any current symptoms. Patient hypertensive,
otherwise with stable vital signs. On exam�patient is mildly somnolent although responds to verbal stimuli. He is alert and oriented x 2. He does have some mild slurred speech. No other focal neurodeficits. Cardiac/pulmonary exam unremarkable.
No evidence of extremity injury from fall. Given unwitnessed fall followed by notable slurred speech and somnolence concern for possible CVA versus possible medication intoxication. Patient has an NIH of 3. A Stroke alert was called at 3:25 PM.
Will check basic labs, troponin, tox screening and urinalysis. Will obtain imaging of head neck, chest/abdomen/pelvis given unwitnessed fall. EKG without acute ischemic changes
Update: CT head without any evidence of intracranial hemorrhage. Neurology was consulted and evaluated patient at bedside. Given NIH of 3 with somewhat uncertain onset of symptoms�TNK not indicated. Labs and remainder of imaging pending.
Update: Labs noted. Mild leukocytosis. Otherwise no clinically significant abnormalities. Troponin undetectable. Urine without any evidence of infection. Tylenol, salicylate, and UDS negative. Viral swabs also negative. Imaging without any
acute findings. Patient still remains mildly altered with mild slurred speech. At this point etiology unknown�toxic ingestion possible although cannot rule out central process including CVA. Patient will be admitted to the hospital for further
workup/management. Patient accepted to hospital service in stable condition.
Chronic conditions affecting care:
Parkinson's, dementia, history CVA
Acute Exacerbation and/or Progression of Chronic Illness:
N/A
<Alize Espinoza PA-C - Last Filed: 08/16/24 23:19>
*Radiology
Radiology exam reviewed: preliminary read by ED provider (CT head reviewed by me-no intracranial hemorrhage no) and radiology read reviewed
*Pulse Oximetry
Patient hypoxic: no
*EKG
Interpreted by ED Provider?: Yes
EKG Intrepretation Date: 08/16/24
Interpretation: normal
Comparison EKG: changes noted
Heart Rate: 78
Rate: normal
Rhythm: sinus and PAC's
QRS Pattern: normal QRS
Ischemia: no ischemia
*Powder Line Repairer Interpretation
Rate: normal
Interpretation: normal
Heart Rate: 72
*Critical Care Note
Total Time (30-74mins, 75-104mins- exclusive of procedures): Not Applicable
<Alize Espinoza PA-C - Last Filed: 08/16/24 23:19>
Patient Management
Discussion with other providers: Hospitalist and Sign Language Instructor (Neurology)
Escalation/DeEscalation of care consider admission/obs:
Admit indicated given ongoing altered mental status and neurologic deficits
ED Attending Note
<Alize Espinoza PA-C - Last Filed: 08/16/24 23:19>
-
Portions of this chart may have been created with voice recognition software.� Occasional wrong word or��sound alike� substitutions may have occurred due to the inherent limitations of voice recognition software.
<Shimon Loving MD - Last Filed: 08/16/24 15:38>
ED Attending Note
Patient seen and examined by attending physician: Yes
I performed the substantive portion of visit, reviewed & personally made and approve the management plan that is documented in note by myself or YONI.: Yes
ED Attending Note:
I have seen and evaluated the patient with a [id number] encounter. I have spoken to the [PA] and involved in the medical history, the physical exam, medical decision making.
Evaluation and management service: agree unless noted differently below.
Results interpretation: agree unless noted differently below.
79-year-old male with history of stroke with no deficits, dementia, hypertension, hyperlipidemia presenting to the emergency department change in mental status. Per family patient was last seen normal at 11 AM. Around 1 PM patient had a
unwitnessed fall in the bathroom. Since then he has had changes in his speech. Is complaining significant back pain. Per medics patient is taking his daughter's gabapentin. Otherwise history is limited
GENERAL: Sleepy but easily arousable
HEENT: normocephalic, extraocular movements intact, moist oral mucosa
NECK: normal inspection
Chest: No chest wall tenderness
RESPIRATORY: no respiratory distress, clear to auscultation bilaterally
CARDIOVASCULAR: regular rate and rhythm
ABDOMEN/: soft, non-distended, diffusely tender, no rebound or guarding
EXTREMITIES: non-tender, no edema/swelling
NEUROLOGIC: NIH 3, oriented x 2, equal strength in upper and lower extremities, normal sensation, normal [id number], mild dysarthria, no dysphasia
SKIN: warm
79-year-old man presenting to the emergency department change in mental status. On exam patient does have a NIH of 3 secondary to him being sleepy but easily arousable, disoriented and slight dysarthria. Concern for CVA given the changes that
occurred after the fall versus traumatic intracranial injury. Stroke alert called and patient taken over for stroke scans as well as trauma scans. Otherwise concern for toxic ingestion. Will check tox labs. Patient will need admission for
further evaluation and monitoring.
Discharge Plan
Departure
Patient Disposition: Admit
Date of Disposition: 08/16/24
Time of Disposition: 16:53
Presentation/result/management discussed w/ accepting MD/DO: Hospitalist
Discharge Problem:
Altered mental status, Fall
Interventions
Interventions:
*Risk Screen - Suicide Last Done: 08/16/24 14:43
*General Assessment Last Done: 08/16/24 14:43
*Neglect/Abuse Screening Last Done: 08/16/24 14:43
ED- Fall Risk Assessment Last Done: 08/16/24 14:54
*ED COVID-19 Vaccine History Last Done: 08/16/24 15:21
*Nursing Disposition Last Done: 08/16/24 20:16
ED- Pulmonary Assessment Last Done: 08/16/24 14:56
ED- Neurological Assessment Last Done: 08/16/24 18:35
ED- Cardiac Assessment Last Done: 08/16/24 14:54
ED Swallowing Screen Last Done: 08/16/24 18:15
Discharge Date and Time
Discharge Date/Time: 08/16/24 20:16
[2024-08-16 15:47] LABS: Acetaminophen < 10 ug/ml (10-30); Salicylate < 1.0 mg/dl (2.0-20.0)
[2024-08-16 15:48] LABS: Alcohol None Detected
--- NOTE | 2024-08-16 15:58 | CON.NEURO ---
Consultation
Order
Date of Consultation: 08/16/24
Requesting Provider: Alize Espinoza PA-C
Reason for Consult: Stroke alert
Paged in: 15:27
Neurology Consultation Note.
HPI: This is an 79-year-old man who presented to [facility] on 07/30/2024 with a fall and dysarthria. According to Ms. Nieves the patient was found on the floor around 1:00 today. Last time seen in usual state of health�around 11 AM
today. Following the fall patient was found to have dysarthria and lethargy.
Mr. Nieves reportedly has a history of severe depression as well as vascular dementia with parkinsonism. He has experienced rapid decline over the past 8-9 months, now requiring a minced moist diet due to dysphagia. The patient has lost 35 pounds
over 10 months and has increasing difficulty eating. He exhibits significant cognitive decline, no longer able to drive or manage finances for the past 6-8 months. The patient struggles with severe depression and has a history of suicidal ideation,
with one attempt two years ago involving probable insomnia pill ingestion. He has had gait freezing and difficulty initiating movement.
ER VS: 160/83-184/85, 75, Afebrile
EKG: NSR, QTc Int : 410 ms
PDMP:Zolpidem Tartrate 10 Mg 90 tabs filled in on 07/16/2024.
Labs: Glucose�102, normal sodium, creatinine�1.2, WBCs�11.4, urine tox�negative, unremarkable UA
CT head wo contrast-chronic left caudate nucleus and right MCA infarcts
CTA head/neck�pending
PMH: left caudate stroke(2017), DLP, GERD, Parkinsonism/dementia, MDD, history of SI, Malignant melanoma , RA, BCC, h/o severe lumbar scoliosis, diverticulosis
PSH: L CEA, Cervical fusion C5,C6, Spinal fusion L5,S1, bilateral cataract surgery, Left inguinal herniorrhaphy, Umbilical hernia repair, spinal stimulator(removed)
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
All: NKDA
ROS: Positive for weight loss
HENT: positive for trouble swallowing.
Gastrointestinal: Positive for dysphagia
Genitourinary: Positive for urinary incontinence
Skin: Negative for rash.
Neurological: positive for cognitive deficits, imbalance
Psychiatric/Behavioral: Positive for depression
Stroke Scale
1A Level of Consciousness:�2/3
1B LOC Questions:�0/2
1C LOC Commands:�0/2
2 Best Gaze:�0/2
3 Visual:�0/3
4 Facial Palsy:�0/3
5A Motor Arm LEFT:�0/4
5B Motor Arm RIGHT:�0/4
6A Motor Leg LEFT:�0/4
6B Motor Leg RIGHT:�0/4
7 Limb Ataxia:�0/2
8 Sensory:�0/2
9 Best Language:�0/3
10 Dysarthria:�2/2
11 Extinction/Inattention:�0/2
Assessment and Plan:
I. Multifactorial encephalopathy (vascular, toxic?, neurodegenerative. Not a candidate for IV TNK due to the timing of symptoms onset
II. 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
III. Vascular parkinsonism/dementia
IV. MDD
-Aspiration precautions.
-Avoid cerebral hypoperfusion, RELEASE MANAGER suppressants and anticholinergic medications.
-please check TSH, free T4, vit B12, ammonia, CK,
-ABG if continues to be lethargic
-Brain MRI wo peg
-Please follow-up CTA results
-Aspirin 81 mg once a day
-DVT prophylaxis.
I personally reviewed all radiology and labs along with past medical records pertinent to current medical problems. Total time spent in patient care is 60 minutes.
Thank you for allowing us to participate in the care of this patient. We will continue to follow. Please do not hesitate to contact us with any questions or concerns.
Subjective/Objective
Subjective Data
Date of Service: August 16, 2024
Objective Data
Vital Signs
Temp Pulse Resp BP Pulse Ox
36.9 C 75 22 141/60 98
08/16/24 14:43 08/16/24 15:15 08/16/24 15:15 08/16/24 15:00 08/16/24 15:15
Lab Results
08/16/24 14:50
08/16/24 14:50
Sodium 140 mmol/L (135-145) 08/16/24 14:50
Potassium 3.9 mmol/L (3.5-5.1) 08/16/24 14:50
BUN 20 mg/dl (9-20) 08/16/24 14:50
Glucose 102 mg/dl (70-99) H 08/16/24 14:50
Calcium 9.2 mg/dl (8.4-10.2) 08/16/24 14:50
Ur Buprenorphine Negative (Negative) 08/16/24 14:50
Patient Allergies
No Known Allergies Allergy (Verified 04/09/24 09:50)
Medications
-
Home Medications
�Medication �Instructions �Recorded
dutasteride 0.5 mg-tamsulosin ER 1 cap PO DAILY Urinary issue 04/01/15
0.4 mg capsule ext.release 24hr
mphas (Marivel)
aspirin 81 mg tablet,delayed 81 mg PO DAILY Blood clot 01/17/17
release prevention/tx
zolpidem 10 mg tablet 10 mg PO HSPRN PRN insomnia #10 12/24/17
tabs
escitalopram oxalate 20 mg tablet 20 mg PO DAILY Mental 04/06/20
Health/Anxiety
atorvastatin 80 mg tablet 80 mg PO QPM High cholesterol 04/07/20
risperidone 0.5 mg tablet 0.5 mg PO DAILY Mental 05/04/21
Health/Anxiety
albuterol sulfate 90 mcg/actuation 2 puff inhalation R Q6 PRN 09/23/22
aerosol inhaler sob/wheezing
pramipexole 4.5 mg tablet,extended 9 mg PO HS restless leg 09/24/22
release 24 hr (Mirapex ER)
amoxicillin 875 mg-potassium 1 tab PO BID #14 tabs 09/26/23
clavulanate 125 mg tablet
benzonatate 100 mg capsule 100 mg PO TID PRN Cough #20 caps 09/26/23
pantoprazole 40 mg granules 40 mg PO DAILY #30 ea 04/09/24
delayed-release for susp in packet
(Protonix)
Vital Signs and Labs
-
Vital Signs and Labs:
Vital Signs
Temp Pulse Resp BP Pulse Ox
36.9 C 89 21 189/79 96
08/16/24 14:43 08/16/24 16:00 08/16/24 16:00 08/16/24 15:57 08/16/24 16:00
Lab Results
08/16/24 14:50
08/16/24 14:50
Sodium 140 mmol/L (135-145) 08/16/24 14:50
Potassium 3.9 mmol/L (3.5-5.1) 08/16/24 14:50
BUN 20 mg/dl (9-20) 08/16/24 14:50
Glucose 102 mg/dl (70-99) H 08/16/24 14:50
Calcium 9.2 mg/dl (8.4-10.2) 08/16/24 14:50
Ur Buprenorphine Negative (Negative) 08/16/24 14:50
Home Medications
-
Home Medications
dutasteride 0.5 mg-tamsulosin ER 0.4 mg capsule ext.release 24hr mphas (Marivel) 1 cap PO DAILY Urinary issue 04/01/15
aspirin 81 mg tablet,delayed release 81 mg PO DAILY Blood clot prevention/tx 01/17/17
zolpidem 10 mg tablet 10 mg PO HSPRN PRN insomnia #10 tabs 12/24/17
escitalopram oxalate 20 mg tablet 20 mg PO DAILY Mental Health/Anxiety 04/06/20
atorvastatin 80 mg tablet 80 mg PO QPM High cholesterol 04/07/20
risperidone 0.5 mg tablet 0.5 mg PO DAILY Mental Health/Anxiety 05/04/21
albuterol sulfate 90 mcg/actuation aerosol inhaler 2 puff inhalation R Q6 PRN sob/wheezing 09/23/22
pramipexole 4.5 mg tablet,extended release 24 hr (Mirapex ER) 9 mg PO HS restless leg 09/24/22
amoxicillin 875 mg-potassium clavulanate 125 mg tablet 1 tab PO BID #14 tabs 09/26/23
benzonatate 100 mg capsule 100 mg PO TID PRN Cough #20 caps 09/26/23
pantoprazole 40 mg granules delayed-release for susp in packet (Protonix) 40 mg PO DAILY #30 ea 04/09/24
--- NOTE | 2024-08-16 17:13 | HPS.HSE ---
Family Physician
-
Family Physician: Sage Ayers
Chief Complaint
-
altered mental status
History of Present Illness
Mr. Farzad Nieves is a 79 yo man with hx Parkinson's disease, vascular dementia, CVA, HLD presents to the ER after an unwitnessed fall earlier today. Per , she found patient on floor of bathroom. He was awoken but very drowsy. She brought him
to the bed and decided to call 911.
On my exam patient wakes up to voice and answers simple questions but cannot keep eyes open.
Per , at PCP appointment on Tuesday, patient made note that he was ready to end life. concerned that he took extra medications. He slept 16 hours the other day and she thought the same.
No fevers/chills. Patient denies current pain. No chest pain. No shortness of breath. No nausea/vomiting/diarrhea, He states he took something to go to sleep earlier but cannot elaborate what it is. He is prescribed Ambien.
He denies current feelings of wanting to hurt himself.
Medical History
Past Medical History
Past Medical History: Reports Other ( CVA old 5 cm right lateral frontal infarct,/hs multiple tia's HLD, GERD, melanoma, anxiety/pression, RA, left carotid endarterectomy January 2017, former smoker quit 1979, PVD, sleep apnea/BiPAP, compression
fractures, DJD, chronic back pain, OA, BPH, diverticulosis/diverticulitis, IBS.)
Past Surgical History: Reports Other (Right hand surgery 2014, cervical fusion 2009, lower back surgery 1993, left shoulder repair bone spur and torn bicep 2012, right shoulder surgery 2012, L5-S1 transforaminal fusion, spinal cord stimulator,
melanoma removal to back 1980, 1983, right cataract extraction with lens implant, umbilical he)
Social History
Tobacco: Former Smoker (quit 40 years ago )
Alcohol: Occasional
Drug: None
Personal:
Living: With Family ( vianney 57 years )
Employment: Retired
Family History
Family History: Cancer (father cancer unknown type , mother old age )
Allergies / Home Medications
Allergies reflects when Allergies were last updated in [employer].
Home Medications with original date entered in [employer]
Allergy/Medication List:
Allergies
Allergy/AdvReac Type Severity Reaction Status Date / Time
No Known Allergies Allergy Verified 04/09/24 09:50
Home Medications
aspirin 81 mg tablet,delayed release 81 mg PO DAILY Blood clot prevention/tx 01/17/17
escitalopram oxalate 20 mg tablet 20 mg PO DAILY Mental Health/Anxiety 04/06/20
pantoprazole 40 mg granules delayed-release for susp in packet (Protonix) 40 mg PO DAILY #30 ea 04/09/24
atorvastatin 40 mg tablet (Lipitor) 40 mg PO DAILY 08/16/24
pramipexole 1.5 mg tablet,extended release 24 hr 1.5 mg PO HS 08/16/24
risperidone 1 mg tablet 1 mg PO HS 08/16/24
zolpidem 10 mg tablet 10 mg PO HS 08/16/24
Review of Systems
-
History Source: Patient
A 12 point ROS was completed and negative except as noted: Yes
Physical Exam
Vital Signs
Vital Signs
Temp Pulse Resp BP Pulse Ox
98.5 F 75 15 163/77 97
08/16/24 14:43 08/16/24 17:00 08/16/24 17:00 08/16/24 17:00 08/16/24 16:15
Physical Exam
General: Other (patient somnolent, awakens to voice and opens simple questions then falls back asleep )
HEENT: PERRLA
Respiratory: Clear; No Wheezes
Cardiac: S1/S2 and Regular Rhythm
GI: Soft and Non Tender
Skin: Warm and Dry; No Rash
Neuro: Sedated and Other (NADIA, tongue protrusion WNL, mild left facial droop? can lift up b/l LE, can wiggle toes - won't bend knees bilaterally )
Psych: Calm
Laboratory Results
-
08/16/24 14:50
08/16/24 14:50
Laboratory Results
Total Bilirubin 0.8 mg/dl (0.2-1.3) 08/16/24 14:50
AST 27 U/L (17-59) 08/16/24 14:50
ALT 21 U/L (0-50) 08/16/24 14:50
Alkaline Phosphatase 85 U/L (38-126) 08/16/24 14:50
Data Reviewed
-
Diagnostic Radiology: Report Reviewed by me
Lab Data: Labs Reviewed by me
Impression/Plan
-
Mr. Farzad Nieves is a 79 yo man with hx Parkinson's disease, vascular dementia, CVA, HLD presents to the ER after an unwitnessed fall earlier today. Per , she found patient on floor of bathroom. He was awoken but very drowsy. She brought him
to the bed and decided to call 911. Concern for CVA versus Ambien intoxication.
Triage VS: T 98.5, P 89, RR 21, BP 189/79, SpO2 96%
LABS: WBC 11.4, Hg 12.5, PLT 236, Na 140, K+ 3.9, CO2 25, Cr 1.2, Glucose 102, liver enzymes WNL
UTox negative; salicylates and tylenol negative
UA with 0-[address]
IMPRESSION:
No evidence of acute intracranial abnormality. Focal regions of old infarction, stable.
Paranasal sinus disease as described. This includes an air-fluid level in the right maxillary sinus, which would be suggestive of a component of acute sinusitis involving the right maxillary sinus.
CERVICAL SPINE CT
IMPRESSION: No evidence of acute fracture or dislocation.
CT A/P
IMPRESSION: No CT evidence for traumatic injury to the chest abdomen or pelvis.
See above narrative for additional findings.
Seen by Neurology in the ER, CT Head/Neck with contrast ordered.
Altered Mental Status - CVA versus medication intoxication
-patient lethargic on exam but awakens to voice, respiratory status stable. Possible left facial droop seen on exam otherwise generalized weakness noted
-patient denies taking aspirin this morning - will order now (rectal if cannot wake up enough to take PO)
-admit to telemetry
-appreciate Neurology consulting - CTA ordered
-neuro checks
-asa/statin
-PT/OT/ST
-hold any sedating medications - hold PROFESSOR OF RADIOLOGY Risperidone, Zolpidem, Pramipexole
-if patient remains altered tomorrow after med washout, consider MRI
- states that she will now administer patient's medications for him
-consider psych consult prior to DC if it becomes clarified that patient took extra medication on purpose. He currently denies any feelings of SI.
Depression
-PROFESSOR OF RADIOLOGY Lexapro
Essential HTN
-not on home BP medications
-will monitor
Chronic lower back pain per
DNR - discussed with on admission
DVT PPx Lovenox subQ
76 minutes spent on patient care
[2024-08-16 17:21] LABS: Troponin I < 0.012 ng/ml
[2024-08-16] MEDS: LOW STRENGTH ASPIRIN 81 MG PO (18:28)
[2024-08-16 18:47] LABS: COVID-19 Antigen Negative (Negative)
--- NOTE | 2024-08-16 20:00 | PTCARENOTE ---
Pt arrived on unit from ED via stretcher. Patient pulled over to bed. Patient confused and placed on bed alarm. Patient placed on tele box #25 in NSR. Care ongoing.
--- NOTE | 2024-08-16 21:30 | PTCARENOTE ---
Patient family at the bedside. This RN attempted to perform swallow screen per protocol. Family told this RN that they had just tried giving him water after leaving room and his coughing was due to drinking water and they refused the swallow screen.
Speech to see patient tomorrow for evaluation. Patient's daughter very adamant that the patient receive IV fluids since he is not drinking or eating. Family informed by this RN that she will notify the BRIDAL GOWN FITTER on duty about their requests for IV fluids.
Patient's daughter then approached the nurse's station asking if she can 'speak with someone who knows what is going on.' This RN attempted to explain that an order would be needed for IV fluids and was currently reviewing the patient's orders and
messaging the BRIDAL GOWN FITTER about the family's concerns. Patient's daughter stated, 'How hard is it to get a bag of IV fluids and how long does it take?' Charge nurse attempted to deescalate situation by explaining multiple times an order would be needed.
Patient's daughter still at nurse's station and escalating her voice saying, 'My dad can not eat or drink, he needs fluids. We want him to get fluids.' Patient's daughter asked to return to room while this RN communicated with the BRIDAL GOWN FITTER. Patient's
daughter asked to speak with booking supervisor. Barber Apprentice contacted by charge nurse to speak with family. Patient's daughter than came out of the patient's room, got in the face of the charge nurse, and followed her down the varner demanding she tell her
her name. Beth lagos called. Patient and family informed that an order for IV fluids was placed and waiting to be verified by pharmacy. IV fluids hung and family left for the night. Care ongoing.
[2024-08-16] MEDS: LR 1000 IV (21:48)
[2024-08-16] MEDS: LOVENOX 40 MG SC (21:50)
--- NOTE | 2024-08-16 22:32 | W.PN.UPDATE ---
Update Note
Progress Note Update
2114 RN reported patient family insisting patient to have IVF as he hasn't been eating or drinking. Electrolytes noted, Discussed with Dr Bills, LR @100 cc/hr ordered
15 minutes later Code purple was called
Charge nurse reports family got too loud and demanding with the nurses regarding the IVF. Talked to the family and assured the fluids are ordered already and requires time to get it from the pharmacy. Also addressed and assured electrolytes and VS
are stable.
Nsg Calculus Teacher counseled them as well.
[2024-08-17] VITALS (8 sets, daily range): BP systolic 106–153; BP diastolic 53–80; PULSE 63; O2SAT 95; BMI 23.5
[2024-08-17 07:02] LABS: Hematocrit 33.5 % (39.0-52.0); Hemoglobin 11.6 g/dL (13.0-18.0); Mean Corp Hgb Conc. 34.6 g/dL (33.0-37.0); Mean Corpuscular Hgb 31.1 pg (27.0-31.0); Mean Corpuscular Volume 89.8 fL (80.0-94.0); Mean Platelet Volume 9.9 fL (7.4-10.4); Platelet Count 208 10^3/uL (130-400); Red Blood Cell Count 3.73 10^6/uL (4.70-6.10); Red Cell Dist. Width 12.8 % (11.5-14.5); White Blood Cell Count 6.6 10^3/uL (4.8-10.8)
[2024-08-17 07:25] LABS: Blood Urea Nitrogen 23 mg/dl (9-20); Calcium 8.7 mg/dl (8.4-10.2); Carbon Dioxide 25 mmol/L (22-30); Chloride 106 mmol/L (98-107); Estimated Creatinine Clearance 56 ml/min; Glucose 95 mg/dl (70-99); HDL Cholesterol 34 mg/dl; LDL Cholesterol, Calculated 54 mg/dl; Potassium 3.9 mmol/L (3.5-5.1); Sodium 140 mmol/L (135-145); Total Cholesterol 111 mg/dl (50-199); Triglyceride 115 mg/dl (10-149); Very Low Density Lipoprotein 23 mg/dl (0-30); eGFR > 60.00
--- NOTE | 2024-08-17 09:55 | PTOTSP ---
Speech Language Pathology
Pt seen for clinical bedside swallow evaluation. Well known to DIRECTOR PAYER from outpatient VSE completed last week (08/09/24). Findings: responsive aspiration of thin liquids via tsp, silent aspiration of puree, and supraglottic penetration with thin
liquids via cup/consecutive straw sips and mildly thick liquids via tsp. Given lack of PNA, minced/moist solids and thin liquids with consideration for outpatient dysphagia tx recommended. Previous VSE completed 11/08/23 with aspiration of thin and
mildly thick liquids.
Pt reported coughing at home with minced/moist solids and mostly consuming pureed solids, as he did not note coughing and this was more comfortable for him. P.O. trials of puree and thin liquids via cup provided. No oral difficulty noted with
limited trials. Occasional cough with thin liquids noted. Did not trial advanced solids given report of intolerance of minced/moist solids at home.
Pt is at a known risk for aspiration. Long discussion was held after VSE last week with pt and in fluoro suite with daughter on facetime. Discussed that as pt is not developing PNA, can consider continuing diet with known risks of aspiration
and family was in agreement at that time. CT of chest did not note any PNA currently.
Recommend:
(1) IDDSI Level 4 (Puree) and thin liquids given lack of PNA, knowing that aspiration possible
(2) Aspiration precautions: sit upright, small single cup sips, alternate solids and liquids, avoid thin liquids via tsp such as broth-based soups
(3) Meds whole in puree
(4) Consider outpatient dysphagia tx
(5) DIRECTOR PAYER to continue to follow
[2024-08-17] MEDS: LIPITOR 40 MG PO (10:07)
[2024-08-17] MEDS: PROTONIX 40 MG PO (10:07)
[2024-08-17] MEDS: ASPIR LOW (ENTERIC COATED) 81 MG PO (10:07)
[2024-08-17] MEDS: LEXAPRO 20 MG PO (10:07)
[2024-08-17 10:33] LABS: Glycohemoglobin (HgbA1c) 5.3 % (4.0-5.6)
--- NOTE | 2024-08-17 12:59 | W.PN.HOSP.TC ---
Today's Communication/Plan
-
Monitor vital signs see plan
Called spouse, left voicemail
Continue aspirin
MRI pending
Neurology to see today
PT/OT, speech therapy
Initiate pur�ed diet per speech recommendation
Assessment / Plan
Assessment / Plan
General: No acute distress
HEENT: PERRLA
Respiratory: Clear; No Wheezes
Cardiac: S1/S2 and Regular Rhythm
GI: Soft and Non Tender
Skin: Warm and Dry; No Rash
Neuro: AO x 2 to 3
Psych: Calm
Altered Mental Status; rule out CVA/TIA.
Could also be secondary to medication use
Appears to be much more awake and alert
Continue aspirin
MRI pending
Neurology following
CT scan without any bleed. Defer any carotid ultrasound to neurology
-neuro checks
-asa/statin
-PT/Ot
Per speech recent VSE with some aspiration. Family is aware. Speech recommended pur�ed diet with thin liquid
-hold any sedating medications - hold AUTOMATIC PRINT DEVELOPER Risperidone, Zolpidem, Pramipexole
Depression
-AUTOMATIC PRINT DEVELOPER Lexapro
Essential HTN
-not on home BP medications
-will monitor
Carotid� stenosis/left CEA 2016
History of melanoma with removal to back
History of PVD
Chronic lower back pain per
Suspect cognitive impairment
DNR - discussed with on admission
DVT PPx Lovenox subQ
Anticipated Discharge: Within 24 hours
Subjective/Interval History
-
Date of Service: August 17, 2024
Denies headache
Objective Data
-
Labs:
Laboratory Results
08/17/24
06:28
WBC 6.6
Hgb 11.6 L
Hct 33.5 L
Plt Count 208
Sodium 140
Potassium 3.9
Chloride 106
Carbon Dioxide 25
BUN 23 H
Creatinine 1.1
Glucose 95
Calcium 8.7
Vital Signs:
Vital Signs
Temp Pulse Resp BP Pulse Ox
97.4 F 69 18 117/53 97
08/17/24 11:09 08/17/24 11:09 08/17/24 11:09 08/17/24 11:09 08/17/24 11:09
--- NOTE | 2024-08-17 14:51 | W.PN.NEURO.1 ---
Addendum entered and electronically signed by Tiana Whitney MD 08/18/24 16:07:
please disregard the note
Original Note:
Today's Communication / Plan
-
.
Subjective/Objective
Subjective Data
Date of Service: August 17, 2024
Neurology Consultation Note.
HPI: This is an 79-year-old man who presented to [facility] on 07/30/2024 with a fall and dysarthria. According to Ezequiel the patient was found on the floor around 1:00 today. Last time seen in usual state of health�around 11 AM
today. Following the fall patient was found to have dysarthria and lethargy.
CTA head/neck�multifocal extra and intracranial atherosclerosis including right ICA 57% stenosis
PMH: left caudate stroke(2017), DLP, GERD, Parkinsonism/dementia, MDD, history of SI, Malignant melanoma , RA, BCC, h/o severe lumbar scoliosis, diverticulosis
PSH: L CEA, Cervical fusion C5,C6, Spinal fusion L5,S1, bilateral cataract surgery, Left inguinal herniorrhaphy, Umbilical hernia repair, spinal stimulator(removed)
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
All: NKDA
ROS: Positive for weight loss
HENT: positive for trouble swallowing.
Gastrointestinal: Positive for dysphagia
Genitourinary: Positive for urinary incontinence
Skin: Negative for rash.
Neurological: positive for cognitive deficits, imbalance, leg stiffness.
Psychiatric/Behavioral: Positive for depression
General: Masked facies.
Cardio: Regular rate. Extremities are without cyanosis or edema.
Neuro:
Mental Status: Alert, oriented to person, place, month, year. Date was incorrect. Impaired attention and preserved comprehension. Increased processing time. Follows simple requests consistently. Nonfluent. No hemineglect.
Cranial Nerves: Pupils are equally round, surgical. EOMs full. Visual fernandez full to confrontation. No ptosis. No nystagmus. V1-V3 intact to light touch and pinprick bilaterally, symmetric. Face symmetric. Gait hearing AU. The palate
elevated well. SCMs and traps 5/5. Tongue midline. Mild dysarthria.
Motor: Increased motor tone in upper and lower extremities.
Reflexes: Bilateral grasp
Sensory: Normal light touch, proprioception at the toes
Coordination: No dysmetria
Gait: deferred
Assessment and Plan:
I. Multifactorial encephalopathy (vascular, toxic?, neurodegenerative. Not a candidate for IV TNK due to the timing of symptoms onset
II. 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
III. Vascular parkinsonism/dementia
IV. MDD
-Aspiration precautions.
-Dysphagia evaluation
-Psychiatry consult
-Avoid dopamine blocking agents.
-Outpatient neuropsychological evaluation if not done already
-Continue aspirin 81 mg once a day
-Please recall neurology service if acute findings are present on brain MRI
-PT
-DVT prophylaxis.
I personally reviewed all radiology and labs along with past medical records pertinent to current medical problems. Total time spent in patient care is 45 minutes.
Thank you for allowing us to participate in the care of this patient. Please do not hesitate to contact us with any questions or concerns.
Objective Data
Vital Signs
Temp Pulse Resp BP Pulse Ox
36.3 C 69 18 117/53 97
08/17/24 11:09 08/17/24 11:09 08/17/24 11:09 08/17/24 11:09 08/17/24 11:09
Lab Results
08/17/24 06:28
08/17/24 06:28
Sodium 140 mmol/L (135-145) 08/17/24 06:28
Potassium 3.9 mmol/L (3.5-5.1) 08/17/24 06:28
BUN 23 mg/dl (9-20) H 08/17/24 06:28
Glucose 95 mg/dl (70-99) 08/17/24 06:28
Calcium 8.7 mg/dl (8.4-10.2) 08/17/24 06:28
LDL Cholesterol, Calc 54 mg/dl 08/17/24 06:28
Ur Buprenorphine Negative (Negative) 08/16/24 14:50
Patient Allergies
No Known Allergies Allergy (Verified 04/09/24 09:50)
Vital Signs and Labs
-
Vital Signs and Labs:
Vital Signs
Temp Pulse Resp BP Pulse Ox
36.3 C 69 18 117/53 97
08/17/24 11:09 08/17/24 11:09 08/17/24 11:09 08/17/24 11:09 08/17/24 11:09
Lab Results
08/17/24 06:28
08/17/24 06:28
Sodium 140 mmol/L (135-145) 08/17/24 06:28
Potassium 3.9 mmol/L (3.5-5.1) 08/17/24 06:28
BUN 23 mg/dl (9-20) H 08/17/24 06:28
Glucose 95 mg/dl (70-99) 08/17/24 06:28
Calcium 8.7 mg/dl (8.4-10.2) 08/17/24 06:28
LDL Cholesterol, Calc 54 mg/dl 08/17/24 06:28
Ur Buprenorphine Negative (Negative) 08/16/24 14:50
Medications
-
Medications:
Generic Name Dose Route Start Last Admin
Trade Name Freq PRN Reason Stop Dose Admin
Acetaminophen 650 mg 08/16/24 20:01
Acetaminophen 650 Mg Rectal Suppository RECTAL 09/13/24 20:00
Q4HPRN PRN
HERNANDEZ, mild pain, or temp >100.4F
Acetaminophen 650 mg 08/16/24 20:01
Acetaminophen 325 Mg Tablet PO 09/13/24 20:00
Q4HPRN PRN
HERNANDEZ, mild pain, or temp >100.4F
Aspirin 300 mg 08/16/24 17:34
Aspirin 300 Mg Rectal Suppository RECTAL 09/13/24 17:33
DAILYPRN PRN
unable to take pO
Aspirin 81 mg 08/17/24 08:00 08/17/24 10:07
Aspirin 81 Mg (Enteric Coated) Tablet PO 09/14/24 07:59 81 mg
DAILY VEGA Administration
Atorvastatin Calcium 40 mg 08/17/24 08:00 08/17/24 10:07
Atorvastatin (Lipitor) 40 Mg Tablet PO 09/14/24 07:59 40 mg
DAILY VEGA Administration
Enoxaparin Sodium 40 mg 08/16/24 20:01 08/16/24 21:50
Enoxaparin Sodium 40 Mg/0.4 Ml Syringe SC 09/13/24 20:00 40 mg
QPM VEGA Administration
Escitalopram Oxalate 20 mg 08/17/24 08:00 08/17/24 10:07
Escitalopram 20 Mg Tablet PO 09/14/24 07:59 20 mg
DAILY VEGA Administration
Lactated Ringer's 1,000 mls @ 60 mls/hr 08/16/24 22:00 08/16/24 21:48
Lr IV 1,000 mls
.[id number] VEGA Administration
Pantoprazole Sodium 40 mg 08/17/24 08:00 08/17/24 10:07
Pantoprazole 40 Mg Delayed Release Tablet PO 09/14/24 07:59 40 mg
DAILY VEGA Administration
Polyethylene Glycol 17 grams 08/16/24 20:01
Polyethylene Glycol Powder 17 Grams Packet PO 09/13/24 20:00
DAILYPRN PRN
constipation
Sodium Chloride 0 flush 08/16/24 21:00
Sodium Chloride 0.9% (Flush) Syringe IV 09/13/24 20:59
PER PROTOCOL VEGA
Home Medications
-
Home Medications
aspirin 81 mg tablet,delayed release 81 mg PO DAILY Blood clot prevention/tx 01/17/17
escitalopram oxalate 20 mg tablet 20 mg PO DAILY Mental Health/Anxiety 04/06/20
pantoprazole 40 mg granules delayed-release for susp in packet (Protonix) 40 mg PO DAILY #30 ea 04/09/24
atorvastatin 40 mg tablet (Lipitor) 40 mg PO DAILY 08/16/24
pramipexole 1.5 mg tablet,extended release 24 hr 1.5 mg PO HS 08/16/24
risperidone 1 mg tablet 1 mg PO HS 08/16/24
zolpidem 10 mg tablet 10 mg PO HS 08/16/24
--- NOTE | 2024-08-17 16:55 | PTCARENOTE ---
patient sat oob for about 2 hours this am after working with therapy, tolerating diet, no s/s of aspiration, legs stiff, vss, will continue to monitor.
[2024-08-17] MEDS: LR IV (17:28)
[2024-08-17] MEDS: LOVENOX 40 MG SC (18:25)
[2024-08-18 03:00] VITALS: BP 125/56
[2024-08-18 06:11] LABS: % Basophils 0.2 % (0-2); % Eosinophils 4.7 % (0-6); % Immature Granulocytes 0.3 % (0-0.5); % Lymphocytes 20.9 % (20.5-51.1); % Monocytes 7.6 % (1.7-9.3); % Neutrophils 66.3 % (42.2-75.2); Absolute Eosinophils 0.5 10^3/uL (0-0.7); Absolute Lymphocytes 2.2 10^3/uL (1.2-3.4); Absolute Monocytes 0.8 10^3/uL (0.1-0.6); Absolute Neutrophils 6.9 10^3/uL (1.4-6.5); Hematocrit 30.7 % (39.0-52.0); Hemoglobin 10.8 g/dL (13.0-18.0); Mean Corp Hgb Conc. 35.2 g/dL (33.0-37.0); Mean Corpuscular Hgb 31.3 pg (27.0-31.0); Mean Platelet Volume 9.8 fL (7.4-10.4); Nucleated Red Blood Cells % 0 % (-); Platelet Count 189 10^3/uL (130-400); Red Blood Cell Count 3.45 10^6/uL (4.70-6.10); Red Cell Dist. Width 12.6 % (11.5-14.5); White Blood Cell Count 10.4 10^3/uL (4.8-10.8)
[2024-08-18 06:51] LABS: Blood Urea Nitrogen 22 mg/dl (9-20); Calcium 8.6 mg/dl (8.4-10.2); Carbon Dioxide 27 mmol/L (22-30); Chloride 102 mmol/L (98-107); Estimated Creatinine Clearance 56 ml/min; Glucose 90 mg/dl (70-99); Potassium 3.6 mmol/L (3.5-5.1); Sodium 137 mmol/L (135-145); eGFR > 60.00
[2024-08-18 07:30] VITALS: BP 118/57
[2024-08-18] MEDS: ASPIR LOW (ENTERIC COATED) 81 MG PO (08:09)
[2024-08-18] MEDS: LEXAPRO 20 MG PO (08:09)
[2024-08-18] MEDS: PROTONIX 40 MG PO (08:09)
[2024-08-18] MEDS: LIPITOR 40 MG PO (08:09)
[2024-08-18 09:47] VITALS: BMI 22.9
[2024-08-18 11:30] VITALS: BP 112/61
--- NOTE | 2024-08-18 12:07 | W.PN.HOSP.TC ---
Today's Communication/Plan
-
Monitor vitals
See plan
Plavix added to aspirin. Dual antiplatelet therapy for 21 days
Monitor for arrhythmia
Discharge planning
Restart pramipexole, risperidone
Continue to hold zolpidem
Assessment / Plan
Assessment / Plan
General: No acute distress
HEENT: PERRLA
Respiratory: Clear; No Wheezes
Cardiac: S1/S2 and Regular Rhythm
GI: Soft and Non Tender
Skin: Warm and Dry; No Rash
Neuro: AO x 2 to 3
Psych: Calm
Altered Mental Status likely secondary to acute CVA, also has underlying cognitive impairment
Appears to be much more awake and alert
Continue aspirin
MRI with acute stroke, 2.7 cm acute transcortical ischemic infarct in the medial right occipital lobe. Patient does have history of CVA.
Neurology following, discussed with neurology. Plavix added. Dual antiplatelet therapy for 21 days and then aspirin alone
CT scan without any bleed. Defer any carotid ultrasound to neurology
-neuro checks
-asa/statin
-PT/Ot
Per speech recent VSE with some aspiration. Family is aware. Speech recommended pur�ed diet with thin liquid
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 Continue to hold Ambien
A1c 5.3
Depression
-BENCH WORKER Lexapro
Essential HTN
-not on home BP medications
-will monitor
Carotid� stenosis/left CEA 2016
History of melanoma with removal to back
History of PVD
Chronic lower back pain per
Suspect cognitive impairment
Restart risperidone, pramipexole
Continue to hold Ambien
DNR - discussed with on admission
DVT PPx Lovenox subQ
Anticipated Discharge: Within 24 hours
Subjective/Interval History
-
Date of Service: August 18, 2024
denies pain
Objective Data
-
Labs:
Laboratory Results
08/18/24
05:37
WBC 10.4
Hgb 10.8 L
Hct 30.7 L
Plt Count 189
Sodium 137
Potassium 3.6
Chloride 102
Carbon Dioxide 27
BUN 22 H
Creatinine 1.1
Glucose 90
Calcium 8.6
Vital Signs:
Vital Signs
Temp Pulse Resp BP Pulse Ox
97.8 F 57 16 118/57 95
08/18/24 07:30 08/18/24 07:30 08/18/24 07:30 08/18/24 07:30 08/18/24 07:30
I&O
08/17/24 08/18/24 08/19/24
06:59 06:59 06:59
Intake Total 1500 / 1500 240 / 240
Output Total 375 / 375
Balance 1500 / 1500 -135 / -135
[2024-08-18] MEDS: PLAVIX 75 MG PO (13:12)
[2024-08-18 15:30] VITALS: BP 119/61
--- NOTE | 2024-08-18 16:08 | W.PN.NEURO.1 ---
Today's Communication / Plan
-
.
Subjective/Objective
Subjective Data
Date of Service: August 17, 2024
Neurology follow-up note.
HPI: Mr. Nieves reports no complaints. He has been normotensive, afebrile. His mental status has significantly improved.
Brain MRI is pending.
CTA head/neck-57% of the R ICA stenosis, moderate left M2 N/V for stenosis
LDL�54, hemoglobin A1c�5.3.
PMH: left caudate stroke(2017), DLP, GERD, Parkinsonism/dementia, MDD, history of SI, Malignant melanoma , RA, BCC, h/o severe lumbar scoliosis, diverticulosis
PSH: L CEA, Cervical fusion C5,C6, Spinal fusion L5,S1, bilateral cataract surgery, Left inguinal herniorrhaphy, Umbilical hernia repair, spinal stimulator(removed)
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
All: NKDA
ROS: Positive for weight loss
HENT: positive for trouble swallowing.
Gastrointestinal: Positive for dysphagia
Genitourinary: Positive for urinary incontinence
Skin: Negative for rash.
Neurological: positive for cognitive deficits, imbalance
Psychiatric/Behavioral: Positive for forgetfulness, depressive symptoms, negative for headache, change in vision, strength
General: Well developed. In no acute distress.
Cardio: Regular rate and rhythm without murmur. Extremities are without cyanosis or edema.
Neuro:
Mental Status: Alert, oriented to self, place, month, year. Impaired attention and preserved comprehension. Follows simple requests consistently. Nonfluent. Able to read.
Cranial Nerves: Pupils are equally round, surgical. EOMs full. Visual fernandez full to confrontation. No ptosis. No nystagmus. V1-V3 intact to light touch and pinprick bilaterally, symmetric. Left facial weakness. Impaired hearing AU. The
palate elevated well. SCMs and traps 5/5. Tongue midline. No dysarthria.
Motor: No pronator or arm drift
Reflexes: Bilateral grasp
Sensory: Absent vibration at the toes and reduced at the ankles
Coordination: No dysmetria or tremor.
Gait: deferred
Assessment and Plan:
I. Multifactorial encephalopathy, significantly improved.
II. 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
III. Intracranial atherosclerosis (Left M2, Left V4:
IV. History of L CEA
V. Vascular parkinsonism/dementia
-Aspiration precautions.
-Will follow-up brain MRI wo peg
-Aspirin 81 mg once a day
-Outpatient carotid Doppler ultrasound.
-Medication administration supervision
-DVT prophylaxis.
I personally reviewed all radiology and labs along with past medical records pertinent to current medical problems. Total time spent in patient care is 40 minutes.
Thank you for allowing us to participate in the care of this patient. We will continue to follow. Please do not hesitate to contact us with any questions or concerns.
Objective Data
Vital Signs
Temp Pulse Resp BP Pulse Ox
36.9 C 54 16 119/61 96
08/18/24 15:30 08/18/24 15:30 08/18/24 15:30 08/18/24 15:30 08/18/24 15:30
Lab Results
08/18/24 05:37
08/18/24 05:37
Sodium 137 mmol/L (135-145) 08/18/24 05:37
Potassium 3.6 mmol/L (3.5-5.1) 08/18/24 05:37
BUN 22 mg/dl (9-20) H 08/18/24 05:37
Glucose 90 mg/dl (70-99) 08/18/24 05:37
Calcium 8.6 mg/dl (8.4-10.2) 08/18/24 05:37
LDL Cholesterol, Calc 54 mg/dl 08/17/24 06:28
Ur Buprenorphine Negative (Negative) 08/16/24 14:50
Patient Allergies
No Known Allergies Allergy (Verified 04/09/24 09:50)
Vital Signs and Labs
-
Vital Signs and Labs:
Vital Signs
Temp Pulse Resp BP Pulse Ox
36.9 C 54 16 119/61 96
08/18/24 15:30 08/18/24 15:30 08/18/24 15:30 08/18/24 15:30 08/18/24 15:30
Lab Results
08/18/24 05:37
08/18/24 05:37
Sodium 137 mmol/L (135-145) 08/18/24 05:37
Potassium 3.6 mmol/L (3.5-5.1) 08/18/24 05:37
BUN 22 mg/dl (9-20) H 08/18/24 05:37
Glucose 90 mg/dl (70-99) 08/18/24 05:37
Calcium 8.6 mg/dl (8.4-10.2) 08/18/24 05:37
LDL Cholesterol, Calc 54 mg/dl 08/17/24 06:28
Ur Buprenorphine Negative (Negative) 08/16/24 14:50
Medications
-
Medications:
Generic Name Dose Route Start Last Admin
Trade Name Freq PRN Reason Stop Dose Admin
Acetaminophen 650 mg 08/16/24 20:01
Acetaminophen 650 Mg Rectal Suppository RECTAL 09/13/24 20:00
Q4HPRN PRN
HERNANDEZ, mild pain, or temp >100.4F
Acetaminophen 650 mg 08/16/24 20:01
Acetaminophen 325 Mg Tablet PO 09/13/24 20:00
Q4HPRN PRN
HERNANDEZ, mild pain, or temp >100.4F
Aspirin 300 mg 08/16/24 17:34
Aspirin 300 Mg Rectal Suppository RECTAL 09/13/24 17:33
DAILYPRN PRN
unable to take pO
Aspirin 81 mg 08/17/24 08:00 08/18/24 08:09
Aspirin 81 Mg (Enteric Coated) Tablet PO 09/14/24 07:59 81 mg
DAILY VEGA Administration
Atorvastatin Calcium 40 mg 08/17/24 08:00 08/18/24 08:09
Atorvastatin (Lipitor) 40 Mg Tablet PO 09/14/24 07:59 40 mg
DAILY VEGA Administration
Clopidogrel Bisulfate 75 mg 08/18/24 13:00 08/18/24 13:12
Clopidogrel 75 Mg Tablet PO 09/07/24 08:01 75 mg
DAILY VEGA Administration
Enoxaparin Sodium 40 mg 08/16/24 20:01 08/17/24 18:25
Enoxaparin Sodium 40 Mg/0.4 Ml Syringe SC 09/13/24 20:00 40 mg
QPM VEGA Administration
Escitalopram Oxalate 20 mg 08/17/24 08:00 08/18/24 08:09
Escitalopram 20 Mg Tablet PO 09/14/24 07:59 20 mg
DAILY VEGA Administration
Pramipexole 1.5 Mg 0 mg 08/18/24 22:00
Tablet Er 24 Hr: One PO 09/15/24 21:59
Tablet Po At HS VEGA
Bedtime
Pantoprazole Sodium 40 mg 08/17/24 08:00 08/18/24 08:09
Pantoprazole 40 Mg Delayed Release Tablet PO 09/14/24 07:59 40 mg
DAILY VEGA Administration
Polyethylene Glycol 17 grams 08/16/24 20:01
Polyethylene Glycol Powder 17 Grams Packet PO 09/13/24 20:00
DAILYPRN PRN
constipation
Risperidone 1 mg 08/18/24 22:00
Risperidone 1 Mg Tablet PO 09/15/24 21:59
HS VEGA
Sodium Chloride 0 flush 08/16/24 21:00
Sodium Chloride 0.9% (Flush) Syringe IV 09/13/24 20:59
PER PROTOCOL VEGA
Home Medications
-
Home Medications
aspirin 81 mg tablet,delayed release 81 mg PO DAILY Blood clot prevention/tx 01/17/17
escitalopram oxalate 20 mg tablet 20 mg PO DAILY Mental Health/Anxiety 04/06/20
pantoprazole 40 mg granules delayed-release for susp in packet (Protonix) 40 mg PO DAILY #30 ea 04/09/24
atorvastatin 40 mg tablet (Lipitor) 40 mg PO DAILY 08/16/24
pramipexole 1.5 mg tablet,extended release 24 hr 1.5 mg PO HS 08/16/24
risperidone 1 mg tablet 1 mg PO HS 08/16/24
zolpidem 10 mg tablet 10 mg PO HS 08/16/24
--- NOTE | 2024-08-18 16:22 | CM ---
Met with patient to do assessment. He lives with in [facility]. 4 steps in. ALl living on [address]. He does have a basement.
He uses cane or rolling walker at home.
Gave him written information on [facility].
PCP Dr. Sage Ayers
Pharmacy: [facility]
He has had [facility] in past.
He stated he would like to go to inpatient rehab. PT and OT indicated home care.
CM to follow up with and patient for choices of SNF. Auth will be needed from insurer for SNF rehab.
--- NOTE | 2024-08-18 16:38 | W.PN.NEURO.1 ---
Today's Communication / Plan
-
.
Subjective/Objective
Subjective Data
Date of Service: August 18, 2024
Neurology follow-up note.
HPI: Mr. Nieves reports no complaints.
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
CTA head/neck-57% of the R ICA stenosis, moderate left M2 N/V for stenosis
LDL�54, hemoglobin A1c�5.3.
PMH: left caudate stroke(2017), DLP, GERD, Parkinsonism/dementia, MDD, history of SI, Malignant melanoma , RA, BCC, h/o severe lumbar scoliosis, diverticulosis
PSH: L CEA, Cervical fusion C5,C6, Spinal fusion L5,S1, bilateral cataract surgery, Left inguinal herniorrhaphy, Umbilical hernia repair, spinal stimulator(removed)
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
All: NKDA
ROS: Positive for weight loss
HENT: positive for trouble swallowing.
Gastrointestinal: Positive for dysphagia
Genitourinary: Positive for urinary incontinence
Skin: Negative for rash.
Neurological: positive for cognitive deficits, imbalance
Psychiatric/Behavioral: Positive for forgetfulness, depressive symptoms, negative for headache, change in vision, strength
General: Well developed. In no acute distress.
Cardio: Regular rate and rhythm without murmur. Extremities are without cyanosis or edema.
Neuro:
Mental Status: Alert, oriented to self, place, month, year. Impaired attention and preserved comprehension. Follows simple requests consistently. Nonfluent. Able to read.
Cranial Nerves: Pupils are equally round, surgical. EOMs full. Visual fernandez full to confrontation. No ptosis. No nystagmus. V1-V3 intact to light touch and pinprick bilaterally, symmetric. Left facial weakness. Impaired hearing AU. The
palate elevated well. SCMs and traps 5/5. Tongue midline. No dysarthria.
Motor: No pronator or arm drift
Reflexes: Bilateral grasp
Sensory: Absent vibration at the toes and reduced at the ankles
Coordination: No dysmetria or tremor.
Gait: deferred
Assessment and Plan:
I. 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 Likely etiology�embolic
II. 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
III. Intracranial atherosclerosis (Left M2, Left V4)
IV. History of L CEA
V. Vascular parkinsonism/dementia
. Acute frontal right ethmoid maxillary sinusitis
VII. History of malignant melanoma
-Aspiration precautions.
-Will follow-up brain MRI wo peg
-Aspirin 81 mg once a day, Plavix 75 mg once a day for 21 days
-RAMESH if TTE unremarkable.
-Outpatient carotid Doppler ultrasound.
-Medication administration supervision
-ENT consult
-DVT prophylaxis.
I personally reviewed all radiology and labs along with past medical records pertinent to current medical problems. Total time spent in patient care is 37 minutes.
Thank you for allowing us to participate in the care of this patient. We will continue to follow. Please do not hesitate to contact us with any questions or concerns.
Objective Data
Vital Signs
Temp Pulse Resp BP Pulse Ox
36.9 C 54 16 119/61 96
08/18/24 15:30 08/18/24 15:30 08/18/24 15:30 08/18/24 15:30 08/18/24 15:30
Lab Results
08/18/24 05:37
08/18/24 05:37
Sodium 137 mmol/L (135-145) 08/18/24 05:37
Potassium 3.6 mmol/L (3.5-5.1) 08/18/24 05:37
BUN 22 mg/dl (9-20) H 08/18/24 05:37
Glucose 90 mg/dl (70-99) 08/18/24 05:37
Calcium 8.6 mg/dl (8.4-10.2) 08/18/24 05:37
LDL Cholesterol, Calc 54 mg/dl 08/17/24 06:28
Ur Buprenorphine Negative (Negative) 08/16/24 14:50
Patient Allergies
No Known Allergies Allergy (Verified 04/09/24 09:50)
Vital Signs and Labs
-
Vital Signs and Labs:
Vital Signs
Temp Pulse Resp BP Pulse Ox
36.9 C 54 16 119/61 96
08/18/24 15:30 08/18/24 15:30 08/18/24 15:30 08/18/24 15:30 08/18/24 15:30
Lab Results
08/18/24 05:37
08/18/24 05:37
Sodium 137 mmol/L (135-145) 08/18/24 05:37
Potassium 3.6 mmol/L (3.5-5.1) 08/18/24 05:37
BUN 22 mg/dl (9-20) H 08/18/24 05:37
Glucose 90 mg/dl (70-99) 08/18/24 05:37
Calcium 8.6 mg/dl (8.4-10.2) 08/18/24 05:37
LDL Cholesterol, Calc 54 mg/dl 08/17/24 06:28
Ur Buprenorphine Negative (Negative) 08/16/24 14:50
Medications
-
Medications:
Generic Name Dose Route Start Last Admin
Trade Name Freq PRN Reason Stop Dose Admin
Acetaminophen 650 mg 08/16/24 20:01
Acetaminophen 650 Mg Rectal Suppository RECTAL 09/13/24 20:00
Q4HPRN PRN
HERNANDEZ, mild pain, or temp >100.4F
Acetaminophen 650 mg 08/16/24 20:01
Acetaminophen 325 Mg Tablet PO 09/13/24 20:00
Q4HPRN PRN
HERNANDEZ, mild pain, or temp >100.4F
Aspirin 300 mg 08/16/24 17:34
Aspirin 300 Mg Rectal Suppository RECTAL 09/13/24 17:33
DAILYPRN PRN
unable to take pO
Aspirin 81 mg 08/17/24 08:00 08/18/24 08:09
Aspirin 81 Mg (Enteric Coated) Tablet PO 09/14/24 07:59 81 mg
DAILY VEGA Administration
Atorvastatin Calcium 40 mg 08/17/24 08:00 08/18/24 08:09
Atorvastatin (Lipitor) 40 Mg Tablet PO 09/14/24 07:59 40 mg
DAILY VEGA Administration
Clopidogrel Bisulfate 75 mg 08/18/24 13:00 08/18/24 13:12
Clopidogrel 75 Mg Tablet PO 09/07/24 08:01 75 mg
DAILY VEGA Administration
Enoxaparin Sodium 40 mg 08/16/24 20:01 08/17/24 18:25
Enoxaparin Sodium 40 Mg/0.4 Ml Syringe SC 09/13/24 20:00 40 mg
QPM VEGA Administration
Escitalopram Oxalate 20 mg 08/17/24 08:00 08/18/24 08:09
Escitalopram 20 Mg Tablet PO 09/14/24 07:59 20 mg
DAILY VEGA Administration
Pramipexole 1.5 Mg 0 mg 08/18/24 22:00
Tablet Er 24 Hr: One PO 09/15/24 21:59
Tablet Po At HS VEGA
Bedtime
Pantoprazole Sodium 40 mg 08/17/24 08:00 08/18/24 08:09
Pantoprazole 40 Mg Delayed Release Tablet PO 09/14/24 07:59 40 mg
DAILY VEGA Administration
Polyethylene Glycol 17 grams 08/16/24 20:01
Polyethylene Glycol Powder 17 Grams Packet PO 09/13/24 20:00
DAILYPRN PRN
constipation
Risperidone 1 mg 08/18/24 22:00
Risperidone 1 Mg Tablet PO 09/15/24 21:59
HS VEGA
Sodium Chloride 0 flush 08/16/24 21:00
Sodium Chloride 0.9% (Flush) Syringe IV 09/13/24 20:59
PER PROTOCOL VEGA
Home Medications
-
Home Medications
aspirin 81 mg tablet,delayed release 81 mg PO DAILY Blood clot prevention/tx 01/17/17
escitalopram oxalate 20 mg tablet 20 mg PO DAILY Mental Health/Anxiety 04/06/20
pantoprazole 40 mg granules delayed-release for susp in packet (Protonix) 40 mg PO DAILY #30 ea 04/09/24
atorvastatin 40 mg tablet (Lipitor) 40 mg PO DAILY 08/16/24
pramipexole 1.5 mg tablet,extended release 24 hr 1.5 mg PO HS 08/16/24
risperidone 1 mg tablet 1 mg PO HS 08/16/24
zolpidem 10 mg tablet 10 mg PO HS 08/16/24
[2024-08-18] MEDS: LOVENOX 40 MG SC (17:14)
[2024-08-18 19:11] VITALS: BP 137/70
[2024-08-18] MEDS: RISPERDAL 1 MG PO (22:09)
[2024-08-18 23:38] VITALS: BP 132/59
[2024-08-19 03:48] VITALS: BP 163/78
[2024-08-19 07:30] VITALS: BP 135/62
[2024-08-19] MEDS: LIPITOR 40 MG PO (08:04)
[2024-08-19] MEDS: PROTONIX 40 MG PO (08:04)
[2024-08-19] MEDS: ASPIR LOW (ENTERIC COATED) 81 MG PO (08:04)
[2024-08-19] MEDS: LEXAPRO 20 MG PO (08:04)
[2024-08-19] MEDS: PLAVIX 75 MG PO (08:04)
[2024-08-19 08:11] LABS: % Basophils 0.2 % (0-2); % Eosinophils 4.4 % (0-6); % Immature Granulocytes 0.3 % (0-0.5); % Lymphocytes 20.4 % (20.5-51.1); % Neutrophils 65.7 % (42.2-75.2); Absolute Eosinophils 0.4 10^3/uL (0-0.7); Absolute Monocytes 0.9 10^3/uL (0.1-0.6); Absolute Neutrophils 6.3 10^3/uL (1.4-6.5); Hematocrit 31.1 % (39.0-52.0); Hemoglobin 10.9 g/dL (13.0-18.0); Mean Corpuscular Hgb 30.9 pg (27.0-31.0); Mean Corpuscular Volume 88.1 fL (80.0-94.0); Mean Platelet Volume 10.1 fL (7.4-10.4); Nucleated Red Blood Cells % 0 % (-); Platelet Count 197 10^3/uL (130-400); Red Blood Cell Count 3.53 10^6/uL (4.70-6.10); Red Cell Dist. Width 12.5 % (11.5-14.5); White Blood Cell Count 9.6 10^3/uL (4.8-10.8)
[2024-08-19 08:23] LABS: Blood Urea Nitrogen 17 mg/dl (9-20); Calcium 8.6 mg/dl (8.4-10.2); Carbon Dioxide 27 mmol/L (22-30); Chloride 101 mmol/L (98-107); Estimated Creatinine Clearance 68 ml/min; Glucose 90 mg/dl (70-99); Potassium 3.8 mmol/L (3.5-5.1); Sodium 132 mmol/L (135-145); eGFR > 60.00
--- NOTE | 2024-08-19 08:58 | W.PN.NEURO.1 ---
Today's Communication / Plan
-
.
Subjective/Objective
Subjective Data
Date of Service: August 19, 2024
Neurology follow-up note.
HPI: Mr. Nieves reports no complaints.
24-hour events: Transient hypertension up to 163/78, afebrile. Restless, required 1 mg of risperidone.
TTE-pending.
Brain MRI wo peg (08/17/2024) an acute R BLOOD BANK CUSTODIAN territory infarct.
CTA head/neck-57% of the R ICA stenosis, moderate left M2 N/V for stenosis.
LDL�54, hemoglobin A1c�5.3.
PMH: left caudate stroke(2017), DLP, GERD, Parkinsonism/dementia, MDD, history of SI, Malignant melanoma , RA, BCC, h/o severe lumbar scoliosis, diverticulosis
PSH: L CEA, Cervical fusion C5,C6, Spinal fusion L5,S1, bilateral cataract surgery, Left inguinal herniorrhaphy, Umbilical hernia repair, spinal stimulator(removed)
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
All: NKDA
ROS: Positive for weight loss
HENT: positive for trouble swallowing.
Gastrointestinal: Positive for dysphagia
Genitourinary: Positive for urinary incontinence
Skin: Negative for rash.
Neurological: positive for cognitive deficits, imbalance
Psychiatric/Behavioral: Positive for forgetfulness, depressive symptoms, negative for headache, change in vision, strength
General: Well developed. In no acute distress.
Cardio: Regular rate and rhythm without murmur. Extremities are without cyanosis or edema.
Neuro:
Mental Status: Alert, oriented to self, place, month, year. Impaired attention and preserved comprehension. Follows simple requests consistently. Nonfluent. Able to read.
Cranial Nerves: Pupils are equally round, surgical. EOMs full. Visual fernandez full to confrontation. No ptosis. No nystagmus. V1-V3 intact to light touch and pinprick bilaterally, symmetric. Last night, required 1 mg of risperidone facial
weakness. Impaired hearing AU. The palate elevated well. SCMs and traps 5/5. Tongue midline. No dysarthria.
Motor: No pronator or arm drift
Reflexes: Bilateral grasp
Sensory: Absent vibration at the toes and reduced at the ankles
Coordination: No dysmetria or tremor.
Gait: deferred
Assessment and Plan:
I. Acute right BLOOD BANK CUSTODIAN stroke. Likely etiology�embolic
II. 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
III. Intracranial atherosclerosis (Left M2, Left V4)
IV. History of L CEA
V. Vascular parkinsonism/dementia
. History of malignant melanoma
VII. MDD
-Aspiration precautions.
-Aspirin 81 mg once a day, Plavix 75 mg once a day for 21 days
-Lipitor 40 mg nightly
-RAMESH if TTE unremarkable.
-Carotid Doppler US.
-Medication administration supervision
-DVT prophylaxis.
I personally reviewed all radiology and labs along with past medical records pertinent to current medical problems. Total time spent in patient care is 37 minutes.
Thank you for allowing us to participate in the care of this patient. We will continue to follow. Please do not hesitate to contact us with any questions or concerns.
Objective Data
Vital Signs
Temp Pulse Resp BP Pulse Ox
36.8 C 53 16 135/62 96
08/19/24 07:30 08/19/24 07:30 08/19/24 07:30 08/19/24 07:30 08/19/24 07:30
Lab Results
08/19/24 07:13
08/19/24 07:13
Sodium 132 mmol/L (135-145) L 08/19/24 07:13
Potassium 3.8 mmol/L (3.5-5.1) 08/19/24 07:13
BUN 17 mg/dl (9-20) 08/19/24 07:13
Glucose 90 mg/dl (70-99) 08/19/24 07:13
Calcium 8.6 mg/dl (8.4-10.2) 08/19/24 07:13
LDL Cholesterol, Calc 54 mg/dl 08/17/24 06:28
Ur Buprenorphine Negative (Negative) 08/16/24 14:50
Patient Allergies
No Known Allergies Allergy (Verified 04/09/24 09:50)
Vital Signs and Labs
-
Vital Signs and Labs:
Vital Signs
Temp Pulse Resp BP Pulse Ox
36.8 C 53 16 135/62 96
08/19/24 07:30 08/19/24 07:30 08/19/24 07:30 08/19/24 07:30 08/19/24 07:30
Lab Results
08/19/24 07:13
08/19/24 07:13
Sodium 132 mmol/L (135-145) L 08/19/24 07:13
Potassium 3.8 mmol/L (3.5-5.1) 08/19/24 07:13
BUN 17 mg/dl (9-20) 08/19/24 07:13
Glucose 90 mg/dl (70-99) 08/19/24 07:13
Calcium 8.6 mg/dl (8.4-10.2) 08/19/24 07:13
LDL Cholesterol, Calc 54 mg/dl 08/17/24 06:28
Ur Buprenorphine Negative (Negative) 08/16/24 14:50
Medications
-
Medications:
Generic Name Dose Route Start Last Admin
Trade Name Freq PRN Reason Stop Dose Admin
Acetaminophen 650 mg 08/16/24 20:01
Acetaminophen 650 Mg Rectal Suppository RECTAL 09/13/24 20:00
Q4HPRN PRN
HERNANDEZ, mild pain, or temp >100.4F
Acetaminophen 650 mg 08/16/24 20:01
Acetaminophen 325 Mg Tablet PO 09/13/24 20:00
Q4HPRN PRN
HERNANDEZ, mild pain, or temp >100.4F
Aspirin 300 mg 08/16/24 17:34
Aspirin 300 Mg Rectal Suppository RECTAL 09/13/24 17:33
DAILYPRN PRN
unable to take pO
Aspirin 81 mg 08/17/24 08:00 08/19/24 08:04
Aspirin 81 Mg (Enteric Coated) Tablet PO 09/14/24 07:59 81 mg
DAILY VEGA Administration
Atorvastatin Calcium 40 mg 08/17/24 08:00 08/19/24 08:04
Atorvastatin (Lipitor) 40 Mg Tablet PO 09/14/24 07:59 40 mg
DAILY VEGA Administration
Clopidogrel Bisulfate 75 mg 08/18/24 13:00 08/19/24 08:04
Clopidogrel 75 Mg Tablet PO 09/07/24 08:01 75 mg
DAILY EVGA Administration
Enoxaparin Sodium 40 mg 08/16/24 20:01 08/18/24 17:14
Enoxaparin Sodium 40 Mg/0.4 Ml Syringe SC 09/13/24 20:00 40 mg
QPM VEGA Administration
Escitalopram Oxalate 20 mg 08/17/24 08:00 08/19/24 08:04
Escitalopram 20 Mg Tablet PO 09/14/24 07:59 20 mg
DAILY VEGA Administration
Pramipexole 1.5 Mg 0 mg 08/18/24 22:00
Tablet Er 24 Hr: One PO 09/15/24 21:59
Tablet Po At HS VEGA
Bedtime
Pantoprazole Sodium 40 mg 08/17/24 08:00 08/19/24 08:04
Pantoprazole 40 Mg Delayed Release Tablet PO 09/14/24 07:59 40 mg
DAILY VEGA Administration
Polyethylene Glycol 17 grams 08/16/24 20:01
Polyethylene Glycol Powder 17 Grams Packet PO 09/13/24 20:00
DAILYPRN PRN
constipation
Risperidone 1 mg 08/18/24 22:00 08/18/24 22:09
Risperidone 1 Mg Tablet PO 09/15/24 21:59 1 mg
HS VEGA Administration
Sodium Chloride 0 flush 08/16/24 21:00
Sodium Chloride 0.9% (Flush) Syringe IV 09/13/24 20:59
PER PROTOCOL VEGA
Home Medications
-
Home Medications
aspirin 81 mg tablet,delayed release 81 mg PO DAILY Blood clot prevention/tx 01/17/17
escitalopram oxalate 20 mg tablet 20 mg PO DAILY Mental Health/Anxiety 04/06/20
pantoprazole 40 mg granules delayed-release for susp in packet (Protonix) 40 mg PO DAILY #30 ea 04/09/24
atorvastatin 40 mg tablet (Lipitor) 40 mg PO DAILY 08/16/24
pramipexole 1.5 mg tablet,extended release 24 hr 1.5 mg PO 08/16/24
risperidone 1 mg tablet 1 mg PO 08/16/24
zolpidem 10 mg tablet 10 mg PO 08/16/24
--- NOTE | 2024-08-19 10:25 | CON.CAR ---
Consultation
Consultation Request
Date/Time Consultation Requested: August 20, 2024
Date/Time Consultation Performed: August 20, 2024
Requesting Provider: Hospitalist service
Performing Provider: Dr Jarrett Rodriguez
Reason for Consultation: CVA, suspected cardioembolic source
Medical History
-
Chief Complaint: CVA, suspected cardioembolic source
History of Present Illness:
He is admitted to [facility] August 16, 2024 with fall and dysarthria.
He has been diagnosed with acute CVA.
Cardiology consultation is requested for further evaluation of possible cardioembolic source. In particular consultation regarding possible transesophageal echocardiogram and possible implantation of loop recorder is requested.
I reviewed the EKGs available for this hospital stay showing only sinus rhythm. I have not seen any atrial fibrillation.
Brain MRI wo peg (08/17/2024):
2.7 cm ACUTE TRANSCORTICAL ISCHEMIC infarct in the MEDIAL RIGHT OCCIPITAL LOBE
Chronic lacunar infarcts
1.6 cm region of encephalomalacia in the left basal ganglia (either a chronic resolved intraparenchymal hemorrhage or hemorrhagic infarct).
CTA head/neck (08/16/24):
Focal atherosclerotic disease at the junction of the right carotid bulb and the right proximal ICA with measured diameter reduction of 57%
Echocardiogram September 24, 2022 finds normal LV size and function with ejection fraction of 60 to 65%, mild LVH, no significant valvular disease and normal size left atrium and right atrium.
Primary CARE physician: Dr. Sage Ayers
Primary cloth shrinking tester: Dr Bob Watson
Past medical history:
Prior left caudate CVA in 2017
Left carotid endarterectomy
Asymptomatic bradycardia
Restrictive lung disease
Obstructive sleep apnea on BiPAP
Dyslipidemia
Hypertension
Severe depression with history of suicidal ideations
Vascular dementia
Parkinson's disease with gait freezing and difficulty initiating movement
Progressive dysphagia
Malignant melanoma
Former smoker
Chronic neuropathy
History of spondylolisthesis
Prior cervical and lumbar surgery
Prior spinal stimulator with subsequent stimulator removal however wires still in place
Social History
Tobacco: Former Smoker (Quit in 1978)
Alcohol: None
Drug: None
Personal:
Living: With Family
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
Family History
Family History: Reviewed & Not Pertinent
Allergies / Home Medications
Allergy/AdvReac Type Severity Reaction Status Date / Time
No Known Allergies Allergy Verified 04/09/24 09:50
�Medication �Instructions �Recorded �Confirmed �Type
aspirin 81 mg tablet,delayed 81 mg PO DAILY Blood clot 01/17/17 08/16/24 History
release prevention/tx
escitalopram oxalate 20 mg tablet 20 mg PO DAILY Mental 04/06/20 08/16/24 History
Health/Anxiety
pantoprazole 40 mg granules 40 mg PO DAILY #30 ea 04/09/24 08/16/24 Rx
delayed-release for susp in packet
(Protonix)
atorvastatin 40 mg tablet (Lipitor) 40 mg PO DAILY 08/16/24 08/16/24 History
pramipexole 1.5 mg tablet,extended 1.5 mg PO HS 08/16/24 History
release 24 hr
risperidone 1 mg tablet 1 mg PO HS 08/16/24 08/16/24 History
zolpidem 10 mg tablet 10 mg PO HS 08/16/24 08/16/24 History
Review of Systems
-
Unable to obtain full review of systems at this time due to: Dementia
History Source: Patient
All other systems: Negative unless noted
Constitutional: Fatigue
EENT: Other (He reports recently progressive dysphagia, he tells me he chokes on solid foods)
Respiratory: No Symptoms
Cardiac: No Symptoms
Abdomen/GI: No Symptoms
: No Symptoms
Musculoskeletal: No Symptoms
Skin: No Symptoms
Endocrine: No Symptoms
Hematologic/Lymphatic: No Symptoms
Physical Exam
Vital Signs
Temp Pulse Resp BP Pulse Ox
98.3 F 53 16 135/62 96
08/19/24 07:30 08/19/24 07:30 08/19/24 07:30 08/19/24 07:30 08/19/24 09:30
Lab Results
08/19/24 07:13
08/19/24 07:13
Troponin I < 0.012 ng/ml 08/16/24 16:40
Physical Exam
General: Well Developed, Well Nourished, No Apparent Distress and Comfortable
HEENT: Normocephalic, Anicteric and Moist Mucous Membranes
Respiratory: Clear and Non Labored Respirations
Cardiac: S1/S2, Regular Rhythm and Murmur (Grade 1/6 apical holosystolic murmur and no rubs.)
Breast: Deferred by me
GI: Soft, Non Tender, Non Distended and Normal Bowel Sounds
Rectal: Deferred by Provider
Musculoskeletal: No Clubbing, No Cyanosis and Edema (There is trace pretibial edema bilaterally)
Skin: Warm and Dry
Neuro: Awake and Alert
Psych: Calm
Impression / Plan
-
Primary CARE physician: Dr. Sage Ayers
Primary cloth shrinking tester: Dr Bob Watson
Assessment:
Acute right occipital CVA
Prior left caudate CVA in 2017
Left carotid endarterectomy
Asymptomatic bradycardia
Restrictive lung disease
Obstructive sleep apnea on BiPAP
Dyslipidemia
Hypertension
Severe depression with history of suicidal ideations
Vascular dementia
Parkinson's disease with gait freezing and difficulty initiating movement
Progressive dysphagia
Malignant melanoma
Former smoker
Chronic neuropathy
History of spondylolisthesis
Prior cervical and lumbar surgery
Prior spinal stimulator with subsequent stimulator removal however wires still in place
Brain MRI wo peg (08/17/2024):
2.7 cm ACUTE TRANSCORTICAL ISCHEMIC infarct in the MEDIAL RIGHT OCCIPITAL LOBE
Chronic lacunar infarcts
1.6 cm region of encephalomalacia in the left basal ganglia (either a chronic resolved intraparenchymal hemorrhage or hemorrhagic infarct).
CTA head/neck (08/16/24):
Focal atherosclerotic disease at the junction of the right carotid bulb and the right proximal ICA with measured diameter reduction of 57%
Echocardiogram September 24, 2022 finds normal LV size and function with ejection fraction of 60 to 65%, mild LVH, no significant valvular disease and normal size left atrium and right atrium.
Recommendations
Regarding his CVA there is concern that he could have cardioembolic source. So far during this hospital stay and his prior hospital stays there have been no documented atrial fibrillation.
While consideration for transesophageal echo and possibly implantation of a loop recorder may be reasonable however there are several concerns at present:
Can he safely have RAMESH? it is noted that he has what sounds like progressive dysphagia. He tells me he chokes on solid foods.
Complicating matters is brain MRI with chronic resolved intraparenchymal hemorrhage or hemorrhagic infarct which would complicate any recommendation on oral anticoagulation
Will hold off on plan for RAMESH for now and check transthoracic echocardiogram which I will order with bubble study
Once we have results of transthoracic echocardiogram there can be consideration for further evaluation:
1st, Need neurologic opinion regarding safety of initiating oral anticoagulation should cardioembolic source be suspected
2nd, If we could safely proceed with OAC, he would have to be further evaluated/cleared for RAMESH given his dysphagia
Data Reviewed
-
EKG: Tracing Personally Visualized and interpreted
Radiology: Report Reviewed by me
CT Scan: Report Reviewed by me
MRI: Report Reviewed by me
Medical Tests (Nuc Med, Echo etc): Report Reviewed by me
Labs: Labs Reviewed by me
Old Records: Reviewed
[2024-08-19 11:30] VITALS: BP 129/56
--- NOTE | 2024-08-19 11:55 | CM ---
CM following re: d/c planning.
CM met with pt at bedside to discuss dispo.
Pt believes he needs SNF / rehab.
CM discussed case with therapy, who will re evaluate pt today.
Pt's top choice is [facility]. CM also provided him with a local SNF list.
He is agreeable to [facility] as a back up.
CM will continue to follow and watch for therapy notes.
Goal: SNF, potentially ,pending bed availability and auth.
--- NOTE | 2024-08-19 12:08 | W.PN.HOSP.TC ---
Today's Communication/Plan
-
Monitor vital signs see plan
Continue with dual antiplatelet therapy
Echo with bubble tomorrow, cardiology following
Neurology following
Discussed with spouse over the phone
Assessment / Plan
Assessment / Plan
General: No acute distress
HEENT: PERRLA
Respiratory: Clear; No Wheezes
Cardiac: S1/S2 and Regular Rhythm
GI: Soft and Non Tender
Skin: Warm and Dry; No Rash
Neuro: AO x 2 to 3
Psych: Calm
Altered Mental Status likely secondary to acute CVA, also has underlying cognitive impairment
Appears to be much more awake and alert
Continue aspirin
MRI with acute stroke, 2.7 cm acute transcortical ischemic infarct in the medial right occipital lobe. Patient does have history of CVA.
Neurology following, discussed with neurology. Plavix added. Dual antiplatelet therapy for 21 days and then aspirin alone
CT scan without any bleed. Defer any carotid ultrasound to neurology
-neuro checks
check echo, added bubble study by cardiology
Cardiology evaluation
-asa/statin
-PT/Ot
Per speech recent [facility] outpatient with some aspiration. Family is aware. Speech recommended pur�ed diet with thin liquid
restart SUPERIOR COURT CLERK Risperidone,Pramipexole. Continue to hold Ambien
A1c 5.3
Hyponatremia
Monitor
Depression
-SUPERIOR COURT CLERK Lexapro
Essential HTN
-not on home BP medications
-will monitor
Carotid� stenosis/left CEA 2016
History of melanoma with removal to back
History of PVD
Chronic lower back pain per
Suspect cognitive impairment
Restarted risperidone, pramipexole
Continue to hold Ambien
DNR - discussed with on admission
DVT PPx Lovenox subQ
Anticipated Discharge: Within 24 hours
Subjective/Interval History
-
Date of Service: August 19, 2024
denies pain
Objective Data
-
Labs:
Laboratory Results
08/19/24
07:13
WBC 9.6
Hgb 10.9 L
Hct 31.1 L
Plt Count 197
Sodium 132 L
Potassium 3.8
Chloride 101
Carbon Dioxide 27
BUN 17
Creatinine 0.9
Glucose 90
Calcium 8.6
Vital Signs:
Vital Signs
Temp Pulse Resp BP Pulse Ox
98.6 F 56 16 129/56 97
08/19/24 11:30 08/19/24 11:30 08/19/24 11:30 08/19/24 11:30 08/19/24 11:30
I&O
08/18/24 08/19/24 08/20/24
06:59 06:59 06:59
Intake Total 1500 / 1500 1080 / 1080
Output Total 900 / 900
Balance 1500 / 1500 180 / 180
[2024-08-19 15:30] VITALS: BP 140/73
[2024-08-19] MEDS: LOVENOX 40 MG SC (16:39)
[2024-08-19 19:37] VITALS: BP 131/58
[2024-08-19] MEDS: RISPERDAL 1 MG PO (21:34)
[2024-08-19 23:28] VITALS: BP 114/61
--- NOTE | 2024-08-19 23:45 | PTCARENOTE ---
tele alarming d/t HR dropping to 36-38 and going back up to 46-48. Pt asymptomatic, BP 114/61. CREW LEADER notified, stated pt has hx of KRISTINE and EKG ordered, Sinus dilma HR 45. Pt no longer wears Bipap, placed on 2L NC. CREW LEADER notified of EKG. Plan of care
ongoing.
[2024-08-20] VITALS (7 sets, daily range): BP systolic 119–154; BP diastolic 58–67; PULSE 57; O2SAT 97
[2024-08-20] MEDS: PROTONIX 40 MG PO (07:44)
[2024-08-20] MEDS: LEXAPRO 20 MG PO (07:44)
[2024-08-20] MEDS: PLAVIX 75 MG PO (07:44)
[2024-08-20] MEDS: LIPITOR 40 MG PO (07:44)
[2024-08-20] MEDS: ASPIR LOW (ENTERIC COATED) 81 MG PO (07:44)
[2024-08-20 08:07] LABS: % Basophils 0.3 % (0-2); % Eosinophils 7.9 % (0-6); % Immature Granulocytes 0.3 % (0-0.5); % Lymphocytes 36.2 % (20.5-51.1); % Monocytes 8.9 % (1.7-9.3); % Neutrophils 46.4 % (42.2-75.2); Absolute Eosinophils 0.5 10^3/uL (0-0.7); Absolute Lymphocytes 2.4 10^3/uL (1.2-3.4); Absolute Monocytes 0.6 10^3/uL (0.1-0.6); Absolute Neutrophils 3.1 10^3/uL (1.4-6.5); Hematocrit 30.5 % (39.0-52.0); Hemoglobin 10.7 g/dL (13.0-18.0); Mean Corp Hgb Conc. 35.1 g/dL (33.0-37.0); Mean Corpuscular Hgb 31.1 pg (27.0-31.0); Mean Corpuscular Volume 88.7 fL (80.0-94.0); Mean Platelet Volume 10.2 fL (7.4-10.4); Nucleated Red Blood Cells % 0 % (-); Platelet Count 210 10^3/uL (130-400); Red Blood Cell Count 3.44 10^6/uL (4.70-6.10); Red Cell Dist. Width 12.5 % (11.5-14.5); White Blood Cell Count 6.7 10^3/uL (4.8-10.8)
[2024-08-20 08:28] LABS: Blood Urea Nitrogen 15 mg/dl (9-20); Calcium 8.4 mg/dl (8.4-10.2); Carbon Dioxide 29 mmol/L (22-30); Chloride 101 mmol/L (98-107); Estimated Creatinine Clearance 61 ml/min; Glucose 90 mg/dl (70-99); Potassium 4.1 mmol/L (3.5-5.1); Sodium 138 mmol/L (135-145); eGFR > 60.00
--- NOTE | 2024-08-20 10:42 | W.PN.CARDCBS ---
Addendum entered and electronically signed by Kellie Freire DO 08/20/24 21:50:
I saw and examined the patient.
The Grocery Clerk Checking's note was reviewed and I agree with the note.
Comment: Patient seen and examined with at bedside. No new events overnight. He reports several months of solid dysphagia and had trouble swallowing his pills. He has not seen GI
GEN: NAD
HEENT: MMM
LUNGS: Bronchovesicular breath sounds decreased but clear no wheezes
CV: reg. + S1S2 No murmur
EXT: No edema
2D echocardiogram 08/20/2024:Normal left ventricular size, wall thickness and systolic function. No regional wall motion abnormalities are seen. LV ejection fraction is 66% by volumetric assessment. Mild mitral regurgitation. Interatrial septum is
intact with no evidence of shunting by color flow doppler or by agitated saline (negative bubble study) at rest and with cough.
Plan:
Admitted with acute Right occipital CVA, concern for embolic CVA
-MRI brain with acute transcortical ischemic infarct in the right occipital lobe with chronic lacunar infarcts. 1.6 cm region of encephalomalacia in the left basal ganglia, either chronic resolved intraparenchymal hemorrhage or hemorrhagic infarct.
-CTA head and neck 08/16/2004 with focal atherosclerotic disease at the right carotid bulb and right proximal ICA stenosis 57%
-phototypesetting equipment monitor without atrial fibrillation/flutter
-As outlined in Dr. Rodriguez's consultation, Transesophageal echocardiogram could be considered however patient has had several months of solid dysphagia that has not yet been evaluated. Symptoms discussed with primary team and neurology;
recommend GI evaluation. In the meantime, transthoracic echocardiogram with bubble study was performed. Bubble study negative and no definite Cardiac embolic source
-Pending further GI evaluation, a transesophageal echocardiogram could also be reconsidered as an outpatient
-Could consider long-term front desk monitor and would favor a 14-day rhythm star over an implantable ILR
-Continue aspirin, plavix per neurology recommendations.
-LDL 54, continue lipitor 40mg daily.
-Hgb A1c 5.3%
-BP stable, not on any antihypertensive medications.
Outpatient cardiac follow-up to be arranged
Please inform us when patient is stable for discharge and we will have a 14-day rhythm star front desk monitor placed prior to discharge
Will sign off, recall if needed
Original Note:
Today's Communication / Plan
-
Echo w/ bubble study
Continue aspirin, plavix
Continue to follow on tele
Impression / Plan
-
PCP: Dr. Ayers
Client Customer Manager: Dr. Watson
Impression:
Acute right occipital CVA
Prior left caudate CVA in 2017
Left carotid endarterectomy
Asymptomatic bradycardia
Restrictive lung disease
Obstructive sleep apnea on BiPAP
Dyslipidemia
Hypertension
Severe depression with h/o suicidal ideations
Vascular dementia
Parkinson's disease with gait freezing and difficulty initiating movement
Progressive dysphagia
Malignant melanoma
Former smoker
Chronic neuropathy
History of spondylolisthesis
Prior cervical and lumbar surgery
Prior spinal stimulator with subsequent stimulator removal however wires still in place
Brain MRI wo peg (08/17/2024): 2.7 cm ACUTE TRANSCORTICAL ISCHEMIC infarct in the MEDIAL RIGHT OCCIPITAL LOBE. Chronic lacunar infarcts. 1.6 cm region of encephalomalacia in the left basal ganglia (either a chronic resolved intraparenchymal
hemorrhage or hemorrhagic infarct).
CTA head/neck (08/16/24): Focal atherosclerotic disease at the junction of the right carotid bulb and the right proximal ICA with measured diameter reduction of 57%
Echo 09/24/2022: EF 60 to 65%, mild LVH, no significant valvular disease and normal size left atrium and right atrium.
Plan:
-Presented with fall and dysarthria. Admitted with acute R occipital CVA. Given concern for embolic CVA, cardiology consulted.
-No afib noted thus far on telemetry. Continue to monitor while admitted. Would consider further monitoring as OP at discharge.
-Brain MRI noted chronic resolved intraparenchymal hemorrhage which would complicate recommendations on OAC if indicated. Would need neurology's opinion on safety of OAC given these findings.
-Check echo 08/20/2024. Unclear that he would tolerate RAMESH given progressive dysphagia. Await TTE w/ bubble study results.
-Continue aspirin, plavix per neurology recommendations.
-LDL 54, continue lipitor 40mg daily.
-Hgb A1c 5.3%
-BP stable, not on any antihypertensive medications.
Progress Note - Client Customer Manager
Subjective
Date of Service: August 20, 2024
No CP, palpitations
Objective
Labs:
08/20/24 07:21
08/20/24 07:21
Labs
Hgb 10.7 g/dL (13.0-18.0) L 08/20/24 07:21
Hct 30.5 % (39.0-52.0) L 08/20/24 07:21
Plt Count 210 10^3/uL (130-400) 08/20/24 07:21
Sodium 138 mmol/L (135-145) 08/20/24 07:21
Potassium 4.1 mmol/L (3.5-5.1) 08/20/24 07:21
BUN 15 mg/dl (9-20) 08/20/24 07:21
Creatinine 1.0 mg/dL (0.7-1.3) 08/20/24 07:21
Glucose 90 mg/dl (70-99) 08/20/24 07:21
Vital Signs and I&O:
Vital Signs
Temp Pulse Resp BP Pulse Ox
98.4 F 61 16 129/67 97
08/20/24 08:00 08/20/24 08:00 08/20/24 08:00 08/20/24 08:00 08/20/24 08:00
Vital Signs
Temp Pulse Resp BP Pulse Ox
98.4 F 61 16 129/67 97
08/20/24 08:00 08/20/24 08:00 08/20/24 08:00 08/20/24 08:00 08/20/24 08:00
Intake & Output
08/18/24 08/19/24 08/20/24 08/21/24
06:59 06:59 06:59 06:59
Intake Total 1500 / 1500 1080 / 1080 1200 / 1200
Output Total 900 / 900
Balance 1500 / 1500 180 / 180 1200 / 1200
Physical Exam
Physical Exam
GEN: NAD
HEENT: MMM
LUNGS: No audible wheeze
CV: SR on tele
EXT: No edema, clubbing or cyanosis
SKIN: Warm, no rash
--- NOTE | 2024-08-20 12:22 | CON.GI ---
Addendum entered and electronically signed by Anastasiya Kraus Do, MD 08/20/24 15:18:
I saw and examined the patient.
The SPRUE KNOCKER's note was reviewed and I agree with the note.
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 GI consulted for chronic solid and liquid food
dysphagia for the past year leading to 30lb wt loss. He describes episodes weekly of impactions of food with hypersalivation. There is also significant GERD despite protonix using many OTC tums and also chronic NSAIDs for back pain. He denies
nausea/vomiting, abd pain, diarrhea/ constipation or blood in stools. Vitals stable. Labs reviewed Hbg 10 down from baseline 05/29 in 2022. No prior EGDs
Impression
- Chronic dysphagia to solid and liquid foods
ddx includes peptic stricture (uses chronic NSAIDs), EoE, ulcer or achalasia
- Wt loss of 30lbs
- Chronic pain on chronic nsaids
- GERD
- Acute fall
- CVA
- Parkinson's
- KRISTINE
- HTN
- HL
- H/o colonic polyps
Recommendations
- Recommend UGI with barium
- NPO at SC for above.
- Despite VSE tolerating puree diet
- C/w Plavix
- C/w PPI change to IV BID
- Appreciate cardiology evaluation
Will follow with you
Original Note:
Consultation
-
Date/Time Consultation Requested: 08/20/24 1130
Date/Time Consultation Performed: 08/20/24 1225
Requesting Provider: Eduard Hsu MD
Performing Provider: JUAN Aguirre, Sobeida Zaragoza DO
Reason for Consultation: dsyphagia
Medical History
Chief Complaint / HPI
History of Present Illness:
Pt is a 79yo with hx CVA, pharyngeal dysphagia, vascular dementia/ parkinsonism, depression/anxiety chronic pain with hx prior spinal surgeries, sleep apnea, basal cell, melanoma, GERD, HTN, hyperlipidemia presents with unwitnessed fall with
slurred speech with concern for medication induced symptoms vs CVA. He was seen by neurology with concern right STONER HAND CVA likely embolic with hx chronic right MCA and left caudate infarcts and moderate right ICA stenosis. He was recommended ASA and
Plavix along with echo and possible RAMESH. Asked to see with complaints of dysphagia if able to proceed with RAMESH. In review of chart pt with hx ongoing dysphagia with cough and choking with eating. He did have recent VSE last week with responsive
aspiration of thin liquids via tsp, silent aspiration of puree, and supraglottic penetration with thin liquids via cup/consecutive straw sips and mildly thick liquids via tsp. Given lack of PNA, minced/moist solids and thin liquids with
consideration for outpatient dysphagia tx recommended.
At this time pt and family admit to 30 lb wt loss over last 10 months and continued worsening swallowing issues. He has chronic GERD. Was on Omeprazole at some point but states may be off but Protonix is on his medication list. He does
admit to 3-4 tabs sometime more Ibuprofen daily with chronic back issues. He denies nausea, vomiting, abdominal pain, constipation, blood or black in stools. No hx EGD and prior colonsocopy [address] Lowe with diverticulosis, 3 mm polyp
Descending colon and hemorrhoids.
Past Medical History
Past Medical History: Cancer (melanoma, basal cell CA), CVA, GERD, HTN, Hypercholesterolemia, Psychiatric (anxiety, depression suspected cognitive impairment ) and Other (RA, restless leg syndrome, parkinsonism, sleep apnea, chronic pain)
Past Surgical History: Orthopedic (carpel tunnel syndrome , spinal fusion, cataract surgery, spinal stimulator and removal, cervical fusion ) and Other (left CEA 2016,hernia repair)
Social History
Tobacco: Former Smoker (quit 50 + years ago )
Alcohol: None
Drug: None
Personal:
Living: With Family
Employment: Retired
Family History
Family History: Other (no family hx colon CA or polyps)
Allergies / Home Medications
Allergy/AdvReac Type Severity Reaction Status Date / Time
No Known Allergies Allergy Verified 04/09/24 09:50
�Medication �Instructions �Recorded
aspirin 81 mg tablet,delayed 81 mg PO DAILY Blood clot 01/17/17
release prevention/tx
escitalopram oxalate 20 mg tablet 20 mg PO DAILY depression/anxiety 04/06/20
pantoprazole 40 mg granules 40 mg PO DAILY #30 ea 04/09/24
delayed-release for susp in packet
(Protonix)
atorvastatin 40 mg tablet (Lipitor) 40 mg PO DAILY High Cholesterol 08/16/24
pramipexole 1.5 mg tablet,extended 1.5 mg PO HS parkinson's disease 08/16/24
release 24 hr
risperidone 1 mg tablet 1 mg PO HS Mental Health/Anxiety 08/16/24
zolpidem 10 mg tablet 10 mg PO HS sleep 08/16/24
Review of Systems
-
History Source: Patient and Family
Constitutional: Reports Weight Loss ( 30 lbs )
EENT: Reports No Symptoms
Respiratory: Reports Cough (with eating )
Cardiac: Reports No Symptoms
Abdomen/GI: Reports Diarrhea (at times but mostly daily formed stools) and Other (chronic dysphagia )
: Reports No Symptoms
Musculoskeletal: Reports Other (chronic back pain)
Skin: Reports No Symptoms
Neurological: Reports Weakness
Endocrine: Reports No Symptoms
Hematologic/Lymphatic: Reports No Symptoms
Vital Signs
Temp Pulse Resp BP Pulse Ox
97.7 F 53 18 154/65 98
08/20/24 11:05 08/20/24 11:05 08/20/24 11:05 08/20/24 11:05 08/20/24 11:05
Physical Exam
Exam
General: Other (elderly male no acute distress )
HEENT: Normocephalic and Anicteric
Respiratory: Clear
Cardiac: Other (bradicardia )
GI: Soft, Non Tender and Non Distended
Musculoskeletal: No Clubbing and No Cyanosis
Skin: Warm and Dry
Neuro: Awake, Alert, AO x 3 and Other (occasional forgetfulness )
Psych: Calm
Results
WBC 6.7 10^3/uL (4.8-10.8) 08/20/24 07:21
Hgb 10.7 g/dL (13.0-18.0) L 08/20/24 07:21
Hct 30.5 % (39.0-52.0) L 08/20/24 07:21
MCV 88.7 fL (80.0-94.0) 08/20/24 07:21
Plt Count 210 10^3/uL (130-400) 08/20/24 07:21
Absolute Neuts (auto) 3.1 10^3/uL (1.4-6.5) 08/20/24 07:21
Sodium 138 mmol/L (135-145) 08/20/24 07:21
Potassium 4.1 mmol/L (3.5-5.1) 08/20/24 07:21
Chloride 101 mmol/L (98-107) 08/20/24 07:21
Carbon Dioxide 29 mmol/L (22-30) 08/20/24 07:21
BUN 15 mg/dl (9-20) 08/20/24 07:21
Creatinine 1.0 mg/dL (0.7-1.3) 08/20/24 07:21
Calcium 8.4 mg/dl (8.4-10.2) 08/20/24 07:21
Total Bilirubin 0.8 mg/dl (0.2-1.3) 08/16/24 14:50
AST 27 U/L (17-59) 08/16/24 14:50
ALT 21 U/L (0-50) 08/16/24 14:50
Alkaline Phosphatase 85 U/L (38-126) 08/16/24 14:50
Diagnostic Image Results:
08/16/24 CT Chest/abd/pel W Iv Cont
IMPRESSION: No CT evidence for traumatic injury to the chest abdomen or pelvis.
See above narrative for additional findings.
08/20/24 CT Head & Neck Angio W/wo IV
IMPRESSION: Focal atherosclerotic disease at the junction of the right carotid bulb and the right proximal ICA with measured diameter reduction of 57%. Subjectively, this diameter reduction appears to be slightly less. Consider further evaluation
with cerebrovascular ultrasound.
Evidence of previous left endarterectomy with no evidence for significant narrowing.
There is calcific atherosclerotic disease of the intracranial internal carotid arteries bilaterally as described.
Moderate narrowing of the proximal M2 branches of the left MCA, at the bifurcation of the left M1 segment.
Calcification of the proximal left subclavian artery, with probably less than 50% diameter reduction.
Calcification of the V4 portion of the left vertebral artery with suggestion of narrowing slightly greater than 50%. No significant narrowing of the right vertebral artery or the basilar artery. No significant narrowing of the posterior cerebral
arteries.
Percent stenosis is calculated using NASCET criteria.
08/17/24 MR Brain Without Contrast
1. 2.7 cm ACUTE TRANSCORTICAL ISCHEMIC infarct in the MEDIAL RIGHT OCCIPITAL LOBE.
2. Large chronic transcortical infarct in the lateral right frontal lobe and insular cortex.
3. Chronic lacunar infarcts in the anterior limb of the right internal capsule and left thalamus.
4. 1.6 cm region of encephalomalacia in the left basal ganglia (either a chronic resolved intraparenchymal hemorrhage or hemorrhagic infarct).
5. Mild periventricular white matter leukoaraiosis.
6. Mild to moderate diffuse cerebral and cerebellar volume loss.
7. SEVERE ACUTE SINUSITIS involving the frontal sinuses, right ethmoid air cells, and maxillary sinuses.
The multiple chronic infarcts and history of dementia are most suggestive of MULTI-INFARCT DEMENTIA.
Prior GI Procedures:
EGD: none
Colonoscopy: [address] Lowe with diverticulosis, 3 mm polyp Descending colon and hemorrhoids.
Assessment / Plan
-
Pt is a 79yo with hx CVA, pharyngeal dysphagia, vascular dementia/ parkinsonism, depression/anxiety chronic pain with hx prior spinal surgeries, sleep apnea, basal cell, melanoma, GERD, HTN, hyperlipidemia presents with unwitnessed fall with
slurred speech with concern for medication induced symptoms vs CVA. He was seen by neurology with concern right STONER HAND CVA likely embolic with hx chronic right MCA and left caudate infarcts and moderate right ICA stenosis. He was recommended ASA and
Plavix along with echo and possible RAMESH. Asked to see with complaints of dysphagia if able to proceed with RAMESH. In review of chart pt with hx ongoing dysphagia with cough and choking with eating. He did have recent VSE last week with responsive
aspiration of thin liquids via tsp, silent aspiration of puree, and supraglottic penetration with thin liquids via cup/consecutive straw sips and mildly thick liquids via tsp. Given lack of PNA, minced/moist solids and thin liquids with
consideration for outpatient dysphagia tx recommended. Pt noted with 30 lbs wt loss last few months.
-CVA on admission with concern for embolic event on ASA and Plavix
-pharyngeal dysphagia with recent VSE with concern for aspiration
-recent wt loss
-s/p fall prior to admission
-daily NSAID use
other med problems:
vascular dementia/parkinsonism
-depression/anxiety
-chronic back pain with prior surgeries
-sleep apnea
-basal cell/melanoma
-GERD
-HTN
-hyperlipidemia
PLAN:
Pt with chronic dysphagia follows with speech with concern for aspiration on VSE
with new CVA would proceed with esophagram -- pt currently on Plavix and prefers least invasive testing
will review with speech if any concern for aspiration with contrast as note aspiration on VSE
TTE and bubble study completed today and results pending
with wt loss , dysphagia and decline over last few months discussed with family goals of care --at this time if symptoms persist pt and family state would not want peg
also discussed palliative care which patient has been followed closely with PCP
discussed NSAID avoidance and consider Tylenol
cont PPI -- ? on Protonix prior to admission
-
-
Thank you for consultation and allowing me to participate in the patient's care. Please call the communication assistant GI physician during the after hours with any questions or concerns.
--- NOTE | 2024-08-20 14:02 | PTCARENOTE ---
Bubble study done with [employer] business technology architect.
--- NOTE | 2024-08-20 14:08 | W.PN.HOSP.TC ---
Today's Communication/Plan
-
GI and Cardiology for RAMEHS
Assessment / Plan
Assessment / Plan
79yo M with PMHx of MDD, HTN, carotid stenosis s/p L CEA @2017, PVD, cognitive disorder, vascular dementia fell to the floor and was very drowsy on admisison, found acute CVA. Neurology concerned for cardoembolic sourse, recommended RAMESH. PAtient
with Hx of dysphagia to solids and liquis, so cardiology requested GI evaluation. Outpatient Linq also planned.
A/P:
#Acute CVA with acute metabolic encephalopathy
ASA, plavix for 21 days, statin. Echo with bubble study and RAMESH advised by neurology - cardiology to follow
PT/OT
No clinically significant arrhythmia on tele
Echo
LDL 54
HgbA1c 5.3%
Carotid US - less then 50% stenosis b/l
#Dysphagia
recent VSE - on pureed diet with thin liquid
GI eval
#MDD
#Essential HTN
#PVD
#Vascular dementia
cont home meds
#Insomnia
hold ambien
#Mild anemia
outpatient w/u
DVT ppx on lovenox
DNR/DNI
I have spent at least 39min reviewing chart, test results, communication with consultants and direct patient care
Anticipated Discharge: 24 - 48 hours
Subjective/Interval History
-
Date of Service: August 20, 2024
Objective Data
-
Labs:
Laboratory Results
08/20/24
07:21
WBC 6.7
Hgb 10.7 L
Hct 30.5 L
Plt Count 210
Sodium 138
Potassium 4.1
Chloride 101
Carbon Dioxide 29
BUN 15
Creatinine 1.0
Glucose 90
Calcium 8.4
Vital Signs:
Vital Signs
Temp Pulse Resp BP Pulse Ox
97.7 F 53 18 154/65 98
08/20/24 11:05 08/20/24 11:05 08/20/24 11:05 08/20/24 11:05 08/20/24 11:05
I&O
08/19/24 08/20/24 08/21/24
06:59 06:59 06:59
Intake Total 1080 / 1080 1200 / 1200
Output Total 900 / 900
Balance 180 / 180 1200 / 1200
Review of Systems
-
Unable to obtain full review of systems at this time due to: Dementia
History Source: Patient and Family
Physical Exam
-
General: No Apparent Distress
HEENT: Normocephalic
Respiratory: Clear to Auscultation
Cardiac: Regular Rhythm
Musculoskeletal: No Clubbing, No Cyanosis and No Edema
Neuro: Awake, Alert, Oriented and AO x 3
Psych: Calm
[2024-08-20 16:01] LABS: Iron 91 ug/dl (49-181)
[2024-08-20 16:11] LABS: Percent Saturation 45 % (20-50); Total Iron Binding Capacity 198 ug/dl (261-462)
[2024-08-20] MEDS: LOVENOX 40 MG SC (17:27)
[2024-08-20 19:22] LABS: Folate 17.1 ng/ml (2.76-20); Vitamin B12 667 pg/ml (239-931)
[2024-08-20] MEDS: NSS (PRESERVATIVE FREE) 10 ML IV (20:22)
[2024-08-20] MEDS: PROTONIX IV 40 MG IV (20:37)
[2024-08-20] MEDS: RISPERDAL 1 MG PO (22:33)
[2024-08-21] VITALS (8 sets, daily range): BP systolic 99–149; BP diastolic 56–74; PULSE 55–57; O2SAT 96
--- NOTE | 2024-08-21 08:16 | W.PN.GI.CBS2 ---
Today's Communication / Plan
-
Please see assessment and plan for details.
Assessment / Plan
-
1. Dysphagia: With underlying oropharyngeal dysphagia which is likely multifactorial, with CVA and Parkinson's, though has been tolerating diet with modifications per speech. His esophageal dysphagia is likely also multifactorial. Given his
recent CVA and other comorbidities we will hold on endoscopy for now, plan barium esophagram today. If barium esophagram is normal there would likely hold on further GI workup and continue with dietary modifications and supplementation. If there
is significant abnormality then we will need to discuss EGD. Continue PPI twice daily for now.
Subjective
Subjective
Date of Service: August 21, 2024
Patient feeling well today, denies abdominal pain, tolerated diet without any excessive coughing by his report. Denies any fevers or chills.
Objective
Data Reviewed
Laboratory Data:
Laboratory Results
08/20/24 07:21
08/20/24 07:21
Laboratory Results
Total Bilirubin 0.8 mg/dl (0.2-1.3) 08/16/24 14:50
AST 27 U/L (17-59) 08/16/24 14:50
ALT 21 U/L (0-50) 08/16/24 14:50
Alkaline Phosphatase 85 U/L (38-126) 08/16/24 14:50
Vital Signs and I&O:
Vital Signs
Temp Pulse Resp BP Pulse Ox
98 F 54 16 99/65 99
08/21/24 07:48 08/21/24 07:48 08/21/24 07:48 08/21/24 07:48 08/21/24 07:48
I&O
08/20/24 08/21/24 08/22/24
06:59 06:59 06:59
Intake Total 1200 / 1200 780 / 780 120 / 120
Output Total 200 / 200
Balance 1200 / 1200 580 / 580 120 / 120
Physical Exam
Physical Exam
General: NAD
Abdomen: normal bowel sounds, soft, no tenderness, no masses or bruits, no ascites
[2024-08-21] MEDS: PLAVIX 75 MG PO (08:30)
[2024-08-21] MEDS: LIPITOR 40 MG PO (08:30)
[2024-08-21] MEDS: LEXAPRO 20 MG PO (08:30)
[2024-08-21] MEDS: ASPIR LOW (ENTERIC COATED) 81 MG PO (08:30)
[2024-08-21] MEDS: NSS (PRESERVATIVE FREE) 10 ML IV ×2 (08:31→20:21)
[2024-08-21] MEDS: PROTONIX IV 40 MG IV ×2 (08:31→20:21)
--- NOTE | 2024-08-21 10:37 | W.PN.HOSP.TC ---
Today's Communication/Plan
-
see A/P
Assessment / Plan
Assessment / Plan
79 yo M with PMHx of MDD, HTN, carotid stenosis s/p L CEA @2017, PVD, cognitive disorder, vascular dementia, fell to the floor and was very drowsy on admission, found acute CVA. Neurology concerned for cardioembolic source, recommended RAMESH.
Patient with Hx of dysphagia to solids and liquid, so cardiology requested GI evaluation. Outpatient Linq also planned.
A/P:
# Acute CVA with acute metabolic encephalopathy
MS AOX2
Carotid US - less then 50% stenosis b/l
No clinically significant arrhythmia on tele
ASA, Plavix for 21 days,
HgbA1c 5.3%
LDL 54, started Lipitor 40 mg
Echo with bubble study negative
Card on board for RAMESH eval, awaiting GI recc first for chronic dysphasia
PT/OT recc acute rehab
# Dysphagia
recent VSE - on pureed diet with thin liquid
GI felt dysphagia likely multifactorial, in setting of CVA and Parkinson's.
holding endoscopy for now, plan barium esophagram
Continue PPI twice daily for now.
# MDD
# Essential HTN
# PVD
# Vascular dementia
cont home meds
# Insomnia
hold ambien
# Mild anemia
outpatient w/u
DVT ppx on Lovenox
DNR/DNI
Anticipated Discharge: 24 - 48 hours
Subjective/Interval History
-
Date of Service: August 21, 2024
Objective Data
-
Vital Signs:
Vital Signs
Temp Pulse Resp BP Pulse Ox
36.6 C 54 16 99/65 99
08/21/24 07:48 08/21/24 07:48 08/21/24 07:48 08/21/24 07:48 08/21/24 07:48
I&O
08/20/24 08/21/24 08/22/24
06:59 06:59 06:59
Intake Total 1200 / 1200 780 / 780 120 / 120
Output Total 200 / 200
Balance 1200 / 1200 580 / 580 120 / 120
Review of Systems
-
Unable to obtain full review of systems at this time due to: Dementia
History Source: Patient
Physical Exam
-
General: Well Developed, Well Nourished, No Apparent Distress, Comfortable and Conversant
HEENT: Normocephalic and Atraumatic
Respiratory: Clear to Auscultation and Non Labored Respirations; Negative Accessory Resp Muscle Use
Cardiac: Regular Rhythm and S1/S2
Musculoskeletal: No Clubbing, No Cyanosis and No Edema
Neuro: Awake and Alert
Psych: Calm
--- NOTE | 2024-08-21 14:41 | CM ---
Addendum entered by PURA Segovia 08/21/24 14:53:
Referrals made to acute care: [facility], [facility], [facility], [facility]. Will await determinations.
Original Note:
Reviewed therapy notes, indication is for acute rehab. Met with patient, his and daughter who are agreeable to referrals being made to [facility] and [facility]. Patient and family updated that [facility] and [facility] do not have any bed
availability in the near future.
Plan: Case management will continue to follow and assist with discharge planning. Family hopeful for acute rehab.
--- NOTE | 2024-08-21 14:43 | W.PN.UPDATE ---
Update Note
Progress Note Update
I reviewed upper GI, showed Schatzki's ring and hiatal hernia though no other significant pathology to suggest malignancy or other dysmotility. Would not plan elective EGD given his other comorbidities now, though would continue PPI and dietary
modifications. If symptoms persist on PPI then can follow-up in the office and consider EGD in the future, though again would hold on this for now given his CVA and other comorbidities. Will sign off for now, please call back with any further
questions.
[2024-08-21] MEDS: LOVENOX 40 MG SC (18:00)
[2024-08-21] MEDS: RISPERDAL 1 MG PO (20:21)
[2024-08-21] MEDS: NON-FORMULARY ITEM 1.5 MG PO (20:28)
[2024-08-21] MEDS: BENADRYL 12.5 MG IV (21:31)
[2024-08-21] MEDS: HYDROCORTISONE 1% CREAM 1 APPLIC TOPICAL (21:32)
[2024-08-22] VITALS (8 sets, daily range): BP systolic 110–169; BP diastolic 56–82; PULSE 58–80; O2SAT 98
--- NOTE | 2024-08-22 03:35 | PTCARENOTE ---
Pt assessed as per flow sheet. No s/s of distress assessed thus far. Will continue to monitor.
--- NOTE | 2024-08-22 05:18 | PTCARENOTE ---
BP this AM 161/71 HR 51. [employer] WAF[employer] TESTER notified for first noted increase in BP. Will continue to monitor as per [employer] WAFERS TESTER. No pt complaint noted. No s/s of distress assessed.
[2024-08-22 07:05] LABS: Hematocrit 33.3 % (39.0-52.0); Hemoglobin 11.7 g/dL (13.0-18.0); Mean Corp Hgb Conc. 35.1 g/dL (33.0-37.0); Mean Corpuscular Volume 88.1 fL (80.0-94.0); Mean Platelet Volume 9.9 fL (7.4-10.4); Platelet Count 246 10^3/uL (130-400); Red Blood Cell Count 3.78 10^6/uL (4.70-6.10); Red Cell Dist. Width 12.4 % (11.5-14.5)
[2024-08-22 07:29] LABS: Blood Urea Nitrogen 16 mg/dl (9-20); Calcium 8.7 mg/dl (8.4-10.2); Carbon Dioxide 31 mmol/L (22-30); Chloride 101 mmol/L (98-107); Estimated Creatinine Clearance 68 ml/min; Glucose 90 mg/dl (70-99); Potassium 3.7 mmol/L (3.5-5.1); Sodium 140 mmol/L (135-145); eGFR > 60.00
[2024-08-22] MEDS: PROTONIX IV 40 MG IV ×2 (08:19→20:11)
[2024-08-22] MEDS: LEXAPRO 20 MG PO (08:19)
[2024-08-22] MEDS: ASPIR LOW (ENTERIC COATED) 81 MG PO (08:19)
[2024-08-22] MEDS: LIPITOR 40 MG PO (08:19)
[2024-08-22] MEDS: PLAVIX 75 MG PO (08:19)
[2024-08-22] MEDS: NSS (PRESERVATIVE FREE) 10 ML IV ×2 (08:19→20:11)
--- NOTE | 2024-08-22 11:55 | W.PN.HOSP.TC ---
Today's Communication/Plan
-
await for further cardio reccs.
Acute rehab assessment
Assessment / Plan
Assessment / Plan
79 yo M with PMHx of MDD, HTN, carotid stenosis s/p L CEA @2017, PVD, cognitive disorder, vascular dementia, fell to the floor and was very drowsy on admission, found acute CVA. Neurology concerned for cardioembolic source, recommended RAMESH.
Patient with Hx of dysphagia to solids and liquid, so cardiology requested GI evaluation. Outpatient Linq also planned.
A/P:
# Acute CVA with acute metabolic encephalopathy
MS AOX2
Carotid US - less then 50% stenosis b/l
No clinically significant arrhythmia on tele
ASA, Plavix for 21 days,
HgbA1c 5.3%
LDL 54, started Lipitor 40 mg
Echo with bubble study negative
Card on board for RAMESH eval, awaiting GI recc first for chronic dysphasia
PT/OT recc acute rehab
# Dysphagia, multifactorial (Parkinson, CVA)
recent VSE - on pureed diet with thin liquid
Barium swallow on 08/21/24: Schatzki's ring approximately 2.5 cm above the esophagogastric junction, Schatzki's ring approximately 2.5 cm above the esophagogastric junction, tertiary contractions of the distal esophagus - GI will not proceed with EGD
at htis time and signed off. PPI BID
Continue PPI twice daily for now.
# MDD
# Essential HTN
# PVD
# Vascular dementia
cont home meds
# Insomnia
hold ambien
# Mild anemia
outpatient w/u
DVT ppx on Lovenox
DNR/DNI
I have spent at least 37min reviewing chart, test results and providing direct patient care
Anticipated Discharge: 24 - 48 hours
Subjective/Interval History
-
Date of Service: August 22, 2024
Objective Data
-
Labs:
Laboratory Results
08/22/24
06:41
WBC 8.0
Hgb 11.7 L
Hct 33.3 L
Plt Count 246
Sodium 140
Potassium 3.7
Chloride 101
Carbon Dioxide 31 H
BUN 16
Creatinine 0.9
Glucose 90
Calcium 8.7
Vital Signs:
Vital Signs
Temp Pulse Resp BP Pulse Ox
99 F 57 20 110/56 100
08/22/24 11:26 08/22/24 11:26 08/22/24 11:26 08/22/24 11:26 08/22/24 11:26
I&O
08/21/24 08/22/24 08/23/24
06:59 06:59 06:59
Intake Total 780 / 780 840 / 840
Output Total 200 / 200
Balance 580 / 580 840 / 840
Review of Systems
-
History Source: Patient
All other systems: Reviewed and negative
Physical Exam
-
General: Comfortable
HEENT: Normocephalic
Cardiac: Regular Rhythm
GI: Soft
Musculoskeletal: No Clubbing, No Cyanosis and No Edema
Skin: Warm
Neuro: Awake, Alert, Oriented, AO x 3 and Slurred Speech
Psych: Calm
--- NOTE | 2024-08-22 12:19 | W.PN.CARDCBS ---
Today's Communication / Plan
-
No Afib has been noted since admit
Will arrange outpt 14 day monitor at time of d/c and if that is negative then likely implantable monitor.
If Afib is found would transition to anticoagulation.
Discussed with GI and pt is clear for RAMESH.
RAMESH discussed with at bedside and with pt and they agree with procedure. If RAMESH positive for thrombus would consider anticoagulation transition.
Echo Aug 20 2024 EF 66% with mild MR and negative bubble study and no change from September 2022.
Cont Lipitor, LDL 54
Cont DAPT as per neuro instructions.
Brain MRI noted chronic resolved intraparenchymal hemorrhage
Discussed with GI and with primary service and .
Impression / Plan
-
.
PCP: Dr. Ayers
Wireless Internet Installer: Dr. Watson
Impression:
Acute right occipital CVA
Prior left caudate CVA in 2016
Left carotid endarterectomy
Asymptomatic bradycardia
Restrictive lung disease
Obstructive sleep apnea on BiPAP
Dyslipidemia
Hypertension
Severe depression with h/o suicidal ideations
Vascular dementia
Parkinson's disease with gait freezing and difficulty initiating movement
Progressive dysphagia
Malignant melanoma
Former smoker
Chronic neuropathy
History of spondylolisthesis
Prior cervical and lumbar surgery
Prior spinal stimulator with subsequent stimulator removal however wires still in place
Brain MRI wo peg (08/17/2024): 2.7 cm ACUTE TRANSCORTICAL ISCHEMIC infarct in the MEDIAL RIGHT OCCIPITAL LOBE. Chronic lacunar infarcts. 1.6 cm region of encephalomalacia in the left basal ganglia (either a chronic resolved intraparenchymal
hemorrhage or hemorrhagic infarct).
CTA head/neck (08/16/24): Focal atherosclerotic disease at the junction of the right carotid bulb and the right proximal ICA with measured diameter reduction of 57%
Echo 09/24/2022: EF 60 to 65%, mild LVH, no significant valvular disease and normal size left atrium and right atrium.
Plan:
-Presented with fall and dysarthria. Admitted with acute R occipital CVA. Given concern for embolic CVA, cardiology consulted.
No Afib has been noted since admit
Will arrange outpt 14 day monitor at time of d/c and if that is negative then likely implantable monitor.
If Afib is found would transition to anticoagulation.
Discussed with GI and pt is clear for RAMESH.
RAMESH discussed with at bedside and with pt and they agree with procedure. If RAMEHS positive for thrombus would consider anticoagulation transition.
Echo Aug 20 2024 EF 66% with mild MR and negative bubble study and no change from September 2022.
Cont Lipitor, LDL 54
Cont DAPT as per neuro instructions.
Brain MRI noted chronic resolved intraparenchymal hemorrhage
Discussed with GI and with primary service and .
Progress Note - Wireless Internet Installer
Subjective
Date of Service: August 22, 2024
Pt seen and examined. No complaints. No chest pain or shortness of breath.
Objective
Labs:
08/22/24 06:41
08/22/24 06:41
Labs
Hgb 11.7 g/dL (13.0-18.0) L 08/22/24 06:41
Hct 33.3 % (39.0-52.0) L 08/22/24 06:41
Plt Count 246 10^3/uL (130-400) 08/22/24 06:41
Sodium 140 mmol/L (135-145) 08/22/24 06:41
Potassium 3.7 mmol/L (3.5-5.1) 08/22/24 06:41
BUN 16 mg/dl (9-20) 08/22/24 06:41
Creatinine 0.9 mg/dL (0.7-1.3) 08/22/24 06:41
Glucose 90 mg/dl (70-99) 08/22/24 06:41
Vital Signs and I&O:
Vital Signs
Temp Pulse Resp BP Pulse Ox
99 F 57 20 110/56 100
08/22/24 11:26 08/22/24 11:26 08/22/24 11:26 08/22/24 11:26 08/22/24 11:26
Vital Signs
Temp Pulse Resp BP Pulse Ox
99 F 57 20 110/56 100
08/22/24 11:26 08/22/24 11:26 08/22/24 11:26 08/22/24 11:26 08/22/24 11:26
Intake & Output
08/20/24 08/21/24 08/22/24 08/23/24
06:59 06:59 06:59 06:59
Intake Total 1200 / 1200 780 / 780 840 / 840
Output Total 200 / 200
Balance 1200 / 1200 580 / 580 840 / 840
Physical Exam
Physical Exam
General: No acute distress, awake and alert
Neck: Negative JVD
Heart: Regular, Negative S3 positive S1/S2, Negative S4, No murmur
Lungs: CTA b/l, negative wheezes/rales/rhonchi
Abd: Positive BS, NT/ND, neg rebound/rigidity/guarding
Ext: Negative cyanosis/clubbing/edema
Neuro: nonfocal
--- NOTE | 2024-08-22 16:25 | CON.MD ---
Addendum entered and electronically signed by Tru Rivas MD 08/23/24 10:51:
Discharge Destination:�Acute inpatient rehabilitation, patient has PT/OT and speech needs and is not at his baseline functioning. Anticipate the course of acute inpatient <del>amputation</del> rehabilitation will be able to get him home with his
safely.
Original Note:
Consultation - Medical
-
Referring Provider:�Dr. Aubrey Alvarez
Chief Complaint:�Stroke
�
History of Present Illness:�79-year-old male with PMH (as below) presented to [facility] on 08[facility] after an unwitnessed fall. Patient awoke very drowsy, concerned patient is overmedicating himself after writing a note that he was
ready to end his life. Initial CT of the head with no acute concerns. MRI noting an acute right NEEDLE POLISHER territory infarct. Aspirin and Plavix for 21 days per neurology, likely embolic. Echocardiogram with EF 66% with negative bubble study. Patient
recently lost 30 pounds and has chronic swallowing problems, currently on pur�ed and thin liquid diet. An upper GI series noting a Schatzki's ring and hiatal hernia with elective EGD in the future, being held with current comorbidities. PPI and
dietary modifications. Overall feeling better. is happy that he is doing better.
�
Past Medical History:�CVA old 5 cm right lateral frontal infarct, TIAs, HLD, GERD, melanoma, anxiety/depression, RA, former smoker quit 1979, PVD, sleep apnea/BiPAP, compression fractures, DJD, chronic back pain, OA, BPH,
diverticulosis/diverticulitis, IBS, chronic low back pain, parkinsonism with chronic dysphagia of solids and liquids.
Procedure History:�left carotid endarterectomy January 2017 left carotid endarterectomy, cervical fusion C5-C6 and spinal fusion L5-S1, bilateral cataract surgery, left inguinal herniorrhaphy, umbilical hernia repair, spinal stimulator and removal.
Family History:�Father with unknown cancer
�
Social History:�
Functional Level Premorbidly:�Independent with all activities�
Functional Level Currently:�Toileting Supervision, Bed mobility Supervision, Min A ambulating 40 feet x 2 with rolling walker. Dysphagia with pur�ed thin liquid diet
�
Tobacco:�Former, quit 40 years ago
Alcohol:�Occasional
Drug use:�Denies�
�
Lives with:�
24-hour assistance available:�Yes
Number of floors:�1
# steps to enter:�2
Driving:�No
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
�
�
Allergies:�
Allergy/AdvReac Type Severity Reaction Status Date / Time
No Known Allergies Allergy Verified 04/09/24 09:50
Review of Systems:�
Constitutional: (x) Normal _
Eye: (x) Normal _
Ear/Nose/Throat: (x) Normal _
Respiratory: (x) Normal _
Cardiovascular: (x) Normal _
Gastrointestinal: (x) Normal _
Genitourinary: (x) Normal _
Musculoskeletal: (x) Normal _
Integumentary: (x) Normal _
Neurologic: (x) Normal _
Psychiatric: (x) Normal _
Endocrine: (x) Normal _
Hematologic/Lymphatic: (x) Normal _
Allergic/Immunologic: (x) Normal _
�
Medications:�
Active Current Visit Medication List
Category Date Time Status
0.9% Sodium Chloride [Nss (Preservative Free)] Med 08/20/24 20:00 Active
10 ml IV BID
Acetaminophen [Tylenol/Feverall] Med 08/16/24 20:01 Active
650 mg RECTAL Q4HPRN PRN
Acetaminophen [Tylenol] Med 08/16/24 20:01 Active
650 mg PO Q4HPRN PRN
Aspirin Med 08/16/24 17:34 Active
300 mg RECTAL DAILYPRN PRN
Aspirin Low Dose EC [Aspir Low (Enteric Coated)] Med 08/17/24 08:00 Active
81 mg PO DAILY
Atorvastatin [Lipitor] Med 08/17/24 08:00 Active
40 mg PO DAILY
Clopidogrel Bisulfate [Plavix] Med 08/18/24 13:00 Active
75 mg PO DAILY
Enoxaparin Sodium [Lovenox] Med 08/16/24 20:01 Active
40 mg SC QPM
Escitalopram Oxalate [Lexapro] Med 08/17/24 08:00 Active
20 mg PO DAILY
Flush (0.9% Sodium Chloride) [Flush (Nss)] Med 08/16/24 21:00 Active
See Dose Instructions IV PER PROTOCOL
Hydrocortisone [Hydrocortisone 1% Cream] Med 08/22/24 03:57 Active
See Dose Instructions TOPICAL BID PRN
Pantoprazole [Protonix IV] Med 08/20/24 20:00 Active
40 mg IV BID
Polyethylene Glycol Powder [Miralax] Med 08/16/24 20:01 Active
17 grams PO DAILYPRN PRN
Risperidone [Risperdal] Med 08/18/24 22:00 Active
1 mg PO HS
pramipexole Med 08/21/24 22:00 Active
See Dose Instructions PO HS
�
Vitals:�
Temp Pulse Resp BP Pulse Ox
98.0 F 55 18 115/59 95
08/22/24 19:10 08/22/24 19:10 08/22/24 19:10 08/22/24 19:10 08/22/24 20:27
Height 5 ft 11 in
Actual Weight 74.389 kg
Body Mass Index (BMI) 22.9
�
Physical Exam:�
General Appearance/Observation: Well-developed, well-nourished male in no apparent distress.�
Pain/Comfort Assessment: Denies�
Mood/Affect: Appropriate�
�
Integumentary/Operative Site:�
�� Pressure Ulcer Evaluation: absent over heels.�
�
Eyes: Conjunctiva/Lids: normal���� Pupils: pupils equal round and reactive to light and Accommodation�
Ears/Nose/Throat: oral mucosa moist,� throat clear.������������ Lips/Teeth/Gums: normal�
Neck: No muscle spasm or tenderness�
Cardiovascular: Heart: regular, no murmur�
Pulses: dorsalis pedis 2+ bilaterally�
Respiratory: Respiratory Effort/Chest Expansion: normal������� Auscultation: Clear to auscultation bilaterally�
Gastrointestinal: abdomen not tender, no distension, normal abdominal bowel sounds
Genitourinary: No Mcdaniel�
Rectal Exam: Deferred�
Extremities:�Edema: None�Cyanosis: None�Trophic�changes: None
�
Neurology Exam:
Orientation: Alert, Oriented to self, Time, Place�
Memory: Intact for recent medical concerns
Repetition: Intact
Comprehension: Intact
Two step command: Intact
Naming: Intact
Cranial Nerves:
�� CNII:�Pupillary light reflex: Intact����Visual Field: Intact
�� CN III, IV, : Extraocular muscles: Intact�
�� CN V:�Facial Sensation�at�Forehead: Intact,�Maxilla: Intact,�Mandible: Intact
�� CN VII:�Facial movement: Symmetric
�� CN VIII:�Hearing: Impaired
�� CN IX/X:�Speech & swallow: Normal,�Position of Uvula: Midline
�� CN XI:�Shoulder shrug: Symmetric
�� CN XII:�Tongue protrusion: Midline
Sensory:
�� Light touch: Intact in bilateral upper and lower extremities
�
Reflexes:
�� Biceps: 2+ bilaterally
�� Brachioradialis: 2+ bilaterally
�� Triceps: 2+ bilaterally
�� Patellar: 0 bilaterally
�� Achilles: 0 bilaterally
�� Babinski: Down going bilaterally
�� Clonus: None
�� Kanchan: Negative bilaterally�
Cerebellar: Dysmetria/Ataxia: None�
Musculoskeletal: Motor: (Manual muscle scale 0-5)�
Muscle SA EF WE EE FF FA HF KE DF EHL PF
Right� 4 5 5 5 4 4 5 5 5
Left 4 5 5 5 4 4 5 5 5
�
Tone: Normal in all extremities�
Range of Motion: Passively within normal limits in all extremities�
�
Lab Results
Laboratory Data
08/22/24 06:41
08/22/24 06:41
Total Bilirubin 0.8 mg/dl (0.2-1.3) 08/16/24 14:50
AST 27 U/L (17-59) 08/16/24 14:50
ALT 21 U/L (0-50) 08/16/24 14:50
Alkaline Phosphatase 85 U/L (38-126) 08/16/24 14:50
Total Protein 6.0 g/dl (6.3-8.2) L 08/16/24 14:50
Albumin 3.6 g/dl (3.5-5.0) 08/16/24 14:50
�
Diagnostic Results:�as per HPI�
�
Assessment
79-year-old M PMH (CVA old 5 cm right lateral frontal infarct, TIAs, HLD, GERD, melanoma, anxiety/depression, RA, former smoker quit 1979, PVD, sleep apnea/BiPAP, compression fractures, DJD, chronic back pain, OA, BPH, diverticulosis/diverticulitis,
IBS, chronic low back pain, parkinsonism with chronic dysphagia of solids and liquids) with 08/16/2024 fall with acute right NEEDLE POLISHER territory infarct.
�
Plan�
PM&R�PT/OT to increase independence with ADLs, improve balance, coordination, endurance, strength, mobility, community reintegration, decreased burden of care on others and family education.�
�
CVA: Secondary prophylaxis with aspirin and Plavix for 21 days, statin, and blood pressure control (SBP less than 180 and diastolic less than 100 to participate with therapy for ischemic stroke). Continue to monitor neurologic status.�
Dysphagia: speech , oral care protocol, aspiration precautions.� Advance pur�ed and thin liquid diet as tolerated.� Found to have a Schatzki ring and hiatal hernia which will need further evaluation as an outpatient including EGD. PPI and dietary
modifications.
HLD: Statin�
Normocytic anemia: Likely multifactorial.� Continue to monitor.�
Anxiety/depression: Psychology consult.� Monitor mood, adjust medications as needed.�
Skin: monitor for pressure sores/rashes/lesions.�
Pain: acetaminophen as needed.�
Bowel: Colace and Senna, PRN bisacodyl.�
Bladder: Time void, PVRs, PRN straight cath.�
GERD and Schatzki ring with hiatal hernia: Pantoprazole�
DVT Prophylaxis: Mechanical and Lovenox.�
Pulmonary: Incentive spirometry�
Safety: Continue to reinforce assistance with all transfers.�
Code Status:� Full code
Dispo�(date/plan/equipment needs): Home with family care.� Social history reviewed.�
Functional and Medical Goals:�Modified Independent with ADL�s, ambulation, transfers�
Discharge Destination:�Acute inpatient rehabilitation, patient has PT/OT and speech needs and is not at his baseline functioning. Anticipate the course of acute inpatient amputation rehabilitation will be able to get him home with his safely.
�
Summary of recommendations:
-�Discharge Destination:�Acute inpatient rehabilitation
CVA: Secondary prophylaxis with aspirin and Plavix for 21 days, statin, and blood pressure control (SBP less than 180 and diastolic less than 100 to participate with therapy for ischemic stroke). Continue to monitor neurologic status.�
Dysphagia: speech , oral care protocol, aspiration precautions.� Advance pur�ed and thin liquid diet as tolerated.� Found to have a Schatzki ring and hiatal hernia which will need further evaluation as an outpatient including EGD. PPI and dietary
modifications.
GERD and Schatzki ring with hiatal hernia: Pantoprazole�
DVT Prophylaxis: Mechanical and Lovenox.�
�
Thank you for allowing me to care for your patient. Please contact me with any questions or concerns.
--- NOTE | 2024-08-22 16:53 | CM ---
Met with patient and his to update. [facility] [place] able to take patient, per [employer]. Isis in admissions at [facility] [place] stated PNMR consult needed. Will relay to attending.
Plan: Case management will continue to follow and assist with discharge planning. Hopeful transfer to [facility] pending auth and bed availability.
[2024-08-22] MEDS: LOVENOX 40 MG SC (17:11)
--- NOTE | 2024-08-22 18:00 | W.PN.UPDATE ---
Update Note
Progress Note Update
RN notified that patient and spouse want patient to be full code.
CODE STATUS adjusted
[2024-08-22] MEDS: NON-FORMULARY ITEM 1.5 MG PO (20:18)
[2024-08-22] MEDS: RISPERDAL 1 MG PO (20:21)
[2024-08-23 03:10] VITALS: BP 143/65
[2024-08-23 07:05] VITALS: BP 132/61
[2024-08-23] MEDS: LEXAPRO 20 MG PO (08:19)
[2024-08-23] MEDS: PROTONIX IV 40 MG IV ×2 (08:19→19:38)
[2024-08-23] MEDS: NSS (PRESERVATIVE FREE) 10 ML IV ×2 (08:19→19:38)
[2024-08-23] MEDS: LIPITOR 40 MG PO (08:19)
[2024-08-23] MEDS: PLAVIX 75 MG PO (08:19)
[2024-08-23] MEDS: ASPIR LOW (ENTERIC COATED) 81 MG PO (08:20)
[2024-08-23 09:30] VITALS: BP 130/64; PULSE 57; PULSE 58; O2SAT 95
--- NOTE | 2024-08-23 11:03 | W.PN.CARDCBS ---
Today's Communication / Plan
-
No Afib has been noted since admit
Will arrange outpt 14 day monitor at time of d/c and if that is negative then likely implantable monitor if 14 day monitor negative.
If Afib is found would transition to anticoagulation.
Discussed with GI and pt was cleared for RAMESH.
RAMESH Aug 23 2024 did not show any evidence of thrombus. Agitated saline bubble study was negative.
Echo Aug 20 2024 EF 66% with mild MR and negative bubble study and no change from September 2022.
Cont Lipitor, LDL 54
Cont DAPT as per neuro instructions.
Brain MRI noted chronic resolved intraparenchymal hemorrhage
Discussed with via phone for both consent and update after the procedure
Please recall if needed.
Impression / Plan
-
.
PCP: Dr. Ayers
Continuous Mining Operator: Dr. Watson
Impression:
Acute right occipital CVA
Prior left caudate CVA in 2017
Left carotid endarterectomy
Asymptomatic bradycardia
Restrictive lung disease
Obstructive sleep apnea on BiPAP
Dyslipidemia
Hypertension
Severe depression with h/o suicidal ideations
Vascular dementia
Parkinson's disease with gait freezing and difficulty initiating movement
Progressive dysphagia
Malignant melanoma
Former smoker
Chronic neuropathy
History of spondylolisthesis
Prior cervical and lumbar surgery
Prior spinal stimulator with subsequent stimulator removal however wires still in place
Brain MRI wo peg (08/17/2024): 2.7 cm ACUTE TRANSCORTICAL ISCHEMIC infarct in the MEDIAL RIGHT OCCIPITAL LOBE. Chronic lacunar infarcts. 1.6 cm region of encephalomalacia in the left basal ganglia (either a chronic resolved intraparenchymal
hemorrhage or hemorrhagic infarct).
CTA head/neck (08/16/24): Focal atherosclerotic disease at the junction of the right carotid bulb and the right proximal ICA with measured diameter reduction of 57%
Echo 09/24/2022: EF 60 to 65%, mild LVH, no significant valvular disease and normal size left atrium and right atrium.
Plan:
-Presented with fall and dysarthria. Admitted with acute R occipital CVA. Given concern for embolic CVA, cardiology consulted.
No Afib has been noted since admit
Will arrange outpt 14 day monitor at time of d/c and if that is negative then likely implantable monitor if 14 day monitor negative.
If Afib is found would transition to anticoagulation.
Discussed with GI and pt was cleared for RAMESH.
RAMESH Aug 23 2024 did not show any evidence of thrombus. Agitated saline bubble study was negative.
Echo Aug 20 2024 EF 66% with mild MR and negative bubble study and no change from September 2022.
Cont Lipitor, LDL 54
Cont DAPT as per neuro instructions.
Brain MRI noted chronic resolved intraparenchymal hemorrhage
Discussed with via phone for both consent and update after the procedure
Please recall if needed.
Progress Note - Continuous Mining Operator
Subjective
Date of Service: August 23, 2024
Pt seen and examined. No complaints. No chest pain or shortness of breath.
Objective
Labs:
08/22/24 06:41
08/22/24 06:41
Labs
Hgb 11.7 g/dL (13.0-18.0) L 08/22/24 06:41
Hct 33.3 % (39.0-52.0) L 08/22/24 06:41
Plt Count 246 10^3/uL (130-400) 08/22/24 06:41
Sodium 140 mmol/L (135-145) 08/22/24 06:41
Potassium 3.7 mmol/L (3.5-5.1) 08/22/24 06:41
BUN 16 mg/dl (9-20) 08/22/24 06:41
Creatinine 0.9 mg/dL (0.7-1.3) 08/22/24 06:41
Glucose 90 mg/dl (70-99) 08/22/24 06:41
Vital Signs and I&O:
Vital Signs
Temp Pulse Resp BP Pulse Ox
97.4 F 54 17 132/61 96
08/23/24 07:05 08/23/24 07:05 08/23/24 07:05 08/23/24 07:05 08/23/24 07:05
Vital Signs
Temp Pulse Resp BP Pulse Ox
97.4 F 54 17 132/61 96
08/23/24 07:05 08/23/24 07:05 08/23/24 07:05 08/23/24 07:05 08/23/24 07:05
Intake & Output
08/21/24 08/22/24 08/23/24 08/24/24
06:59 06:59 06:59 06:59
Intake Total 780 / 780 840 / 840 420 / 420
Output Total 200 / 200
Balance 580 / 580 840 / 840 420 / 420
Physical Exam
Physical Exam
General: No acute distress, AAOX3
Neck: Negative JVD
Heart: Regular, Negative S3 positive S1/S2, Negative S4, No murmur
Lungs: CTA b/l, negative wheezes/rales/rhonchi
Abd: Positive BS, NT/ND, neg rebound/rigidity/guarding
Ext: Negative cyanosis/clubbing/edema
Neuro: nonfocal
--- NOTE | 2024-08-23 11:49 | PTCARENOTE ---
Report received from laboratory courier. No complications during RAMESH procedure. VSS. Pt. having difficulty swallowing with thin liquids and had choking episode after drinking apple juice. Speech consult ordered.
--- NOTE | 2024-08-23 12:06 | W.PN.HOSP.TC ---
Today's Communication/Plan
-
s/p RAMESH - reported cough with apple juice. ELECTROCARDIOGRAPH OPERATOR to reeval
Assessment / Plan
Assessment / Plan
79 yo M with PMHx of MDD, HTN, carotid stenosis s/p L CEA @2017, PVD, cognitive disorder, vascular dementia, fell to the floor and was very drowsy on admission, found acute CVA. Neurology concerned for cardioembolic source, recommended RAMESH.
Patient with Hx of dysphagia to solids and liquid, so cardiology requested GI evaluatiion. Scheduled for RAMESH. Outpatient [facility] also planned.
Has persistent dysphagia - ELECTROCARDIOGRAPH OPERATOR closely follows
A/P:
#Acute CVA with acute metabolic encephalopathy
Carotid US - less then 50% stenosis b/l
No clinically significant arrhythmia on tele
ASA, Plavix for 21 days,
HgbA1c 5.3%
LDL 54, started Lipitor 40 mg
Echo with bubble study negative for PFO
Card for RAMESH eval
PT/OT recc acute rehab. physiatry evaluated
#Dysphagia, multifactorial (Parkinson, CVA)
recent VSE - on pureed diet with thin liquid
Barium swallow on 08/21/24: Schatzki's ring approximately 2.5 cm above the esophagogastric junction, Schatzki's ring approximately 2.5 cm above the esophagogastric junction, tertiary contractions of the distal esophagus - GI will not proceed with EGD
at htis time and signed off. PPI BID
Continue PPI twice daily for now
#MDD
#Essential HTN
#PVD
#Vascular dementia
cont home meds
#Insomnia
hold ambien
#Mild anemia
outpatient w/u
DVT ppx on Lovenox
DNR/DNI
I have spent at least 37min reviewing chart, test results and providing direct patient care
Anticipated Discharge: Within 24 hours
Subjective/Interval History
-
Date of Service: August 23, 2024
Objective Data
-
Vital Signs:
Vital Signs
Temp Pulse Resp BP Pulse Ox
97.4 F 54 17 132/61 96
08/23/24 07:05 08/23/24 07:05 08/23/24 07:05 08/23/24 07:05 08/23/24 07:05
I&O
08/22/24 08/23/24 08/24/24
06:59 06:59 06:59
Intake Total 840 / 840 420 / 420
Balance 840 / 840 420 / 420
Review of Systems
-
History Source: Patient
All other systems: Reviewed and negative
Physical Exam
-
General: Well Nourished and No Apparent Distress
Respiratory: Clear to Auscultation
GI: Soft, Nontender and Nondistended
Neuro: Awake, Alert, Oriented and AO x 3
Psych: Calm
--- NOTE | 2024-08-23 14:15 | CM ---
PM&R consult done. Patient accepted into [facility] upon bed availability. Tentative tomorrow. Family updated and agreeable. Will attempt authorization in anticipation for possible d/c tomorrow.
Plan: Case management will continue to follow and assist with discharge planning. [facility] upon bed availability and hopeful auth.
--- NOTE | 2024-08-23 14:40 | PTOTSP ---
Speech Language Pathology
Pt seen for dysphagia tx per MD/RN request given coughing with liquids after RAMESH this date. and daughter at bedside. Reviewed results/recommendations of recent OP VSE with all. Daughter reported that pt just finished lunch (was out of bed
into chair) and did well until some coughing with liquids at end. Seen with sips of water via cup with occasional throat clearing. Pt reported swallow function appears baseline. TRACK REPAIRER HELPER in agreement.
Again discussed that as pt is not developing PNA, can consider continuing diet with known risks of aspiration and family was in agreement at that time. WBC WNL.
Recommend:
(1) IDDSI Level 4 (Puree) and thin liquids given lack of PNA, knowing that aspiration possible
(2) Aspiration precautions: sit upright, small single cup sips, alternate solids and liquids, avoid thin liquids via tsp such as broth-based soups
(3) Meds whole in puree
(4) TRACK REPAIRER HELPER to continue to follow. Daughter with questions regarding neuromuscular electrical stimulation (NMES) at [facility]. Will defer to [facility] TRACK REPAIRER HELPER.
[2024-08-23 15:02] VITALS: BP 157/82
[2024-08-23] MEDS: LOVENOX 40 MG SC (18:29)
[2024-08-23] MEDS: RISPERDAL 1 MG PO (20:56)
[2024-08-23] MEDS: NON-FORMULARY ITEM 1.5 MG PO (20:56)
[2024-08-24 00:18] VITALS: BP 123/63
[2024-08-24 07:05] VITALS: BP 144/58
[2024-08-24] MEDS: LEXAPRO 20 MG PO (07:33)
[2024-08-24] MEDS: LIPITOR 40 MG PO (07:33)
[2024-08-24] MEDS: ASPIR LOW (ENTERIC COATED) 81 MG PO (07:33)
[2024-08-24] MEDS: PLAVIX 75 MG PO (07:33)
[2024-08-24] MEDS: PROTONIX IV 40 MG IV (07:34)
[2024-08-24] MEDS: NSS (PRESERVATIVE FREE) 10 ML IV (07:35)
--- NOTE | 2024-08-24 08:39 | CM ---
Addendum entered by Laura Castillo 08/24/24 16:18:
Fax approval for [facility]
approved 5 days
auth # [id number]
updates to fax# [phone]
Plan: [facility] today
[facility]
Report# [phone]
fax# [phone]
Addendum entered by Laura Castillo 08/24/24 15:53:
Case pended to [facility] for review.
Bed available at [facility] if approved.
Contact O[facility] at [facility] with determination [phone]
Addendum entered by Laura Castillo 08/24/24 09:32:
TC to [facility] spoke with Nessa
Pended reference # [id number]
Clinicals faxed to [phone]
await determination
Original Note:
Bed avialable t [facility]
NPI# [id number]
accepting MD NPI# [id number]
Needs [employer] auth
TC to [facility] x 2, not open yet, will attempt later.
--- NOTE | 2024-08-24 10:36 | W.PN.HOSP.TC ---
Today's Communication/Plan
-
dc
Assessment / Plan
Assessment / Plan
79 yo M with PMHx of MDD, HTN, carotid stenosis s/p L CEA @2017, PVD, cognitive disorder, vascular dementia, fell to the floor and was very drowsy on admission, found acute CVA. Neurology concerned for cardioembolic source, recommended RAMESH.
Patient with Hx of dysphagia to solids and liquid, so cardiology requested GI evaluation. s/p RAMESH on 08/23/24 without significant findings. Outpatient Lin[facility] also planned.
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
Medically stable for d/c to acute rehab
A/P:
#Acute CVA with acute metabolic encephalopathy
Carotid US - less then 50% stenosis b/l
No clinically significant arrhythmia on tele
ASA, Plavix for 21 days,
HgbA1c 5.3%
LDL 54, started Lipitor 40 mg
Echo with bubble study negative for PFO
Card for RAMESH eval
PT/OT recc acute rehab. physiatry evaluated
#Dysphagia, multifactorial (Parkinson, CVA)
recent VSE - on pureed diet with thin liquid
Barium swallow on 08/21/24: Schatzki's ring approximately 2.5 cm above the esophagogastric junction, Schatzki's ring approximately 2.5 cm above the esophagogastric junction, tertiary contractions of the distal esophagus - GI will not proceed with EGD
at this time and signed off. PPI BID
Continue PPI twice daily for now
#MDD
#Essential HTN
#PVD
#Vascular dementia
cont home meds
#Insomnia
hold ambien
#Mild anemia
outpatient w/u
DVT ppx on Lovenox
DNR/DNI
I have spent at least 37min reviewing chart, test results and providing direct patient care
Anticipated Discharge: Today
Subjective/Interval History
-
Date of Service: August 24, 2024
Objective Data
-
Vital Signs:
Vital Signs
Temp Pulse Resp BP Pulse Ox
97.6 F 60 17 144/58 95
08/24/24 07:05 08/24/24 07:05 08/24/24 07:05 08/24/24 07:05 08/24/24 07:05
I&O
08/23/24 08/24/24 08/25/24
06:59 06:59 06:59
Intake Total 420 / 420 660 / 660
Balance 420 / 420 660 / 660
Review of Systems
-
History Source: Patient
All other systems: Reviewed and negative
Physical Exam
-
General: No Apparent Distress
Neuro: Awake, Alert, Oriented, AO x 3 and No Motor Deficits
Psych: Calm
--- NOTE | 2024-08-24 10:43 | W.DCSUMMARY ---
Addendum entered and electronically signed by Eduard Hsu MD 08/24/24 13:48:
cardiac monitor technician was placed on the patient.
Original Note:
Discharge Summary
Discharge Data
Date of Admission: 08/16/24
Date of Discharge: 08/24/24
-
Pending Results: No
Hospital Course
79 yo M with PMHx of MDD, HTN, carotid stenosis s/p L CEA @2017, PVD, cognitive disorder, vascular dementia, fell to the floor and was very drowsy on admission, found acute CVA (2.7 cm ACUTE TRANSCORTICAL ISCHEMIC infarct in the MEDIAL RIGHT
OCCIPITAL LOBE, Large chronic transcortical infarct in the lateral right frontal lobe and insular cortex, Chronic lacunar infarcts in the anterior limb of the right internal capsule and left thalamus) . Neurology concerned for cardioembolic source,
recommended RAMESH.
Patient with Hx of dysphagia to solids and liquid, so cardiology requested GI evaluation. s/p RAMESH on 08/23/24 without significant findings. Outpatient Linq also planned.
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
Medically stable for d/c to acute rehab
I have spent at least 37min reviewing chart, test results and providing direct patient care
Patient was managed for:
#Acute CVA with acute metabolic encephalopathy
#Allergic sinusitis
#Dysphagia, multifactorial (Parkinson, CVA)
#MDD
#Essential HTN
#PVD
#Vascular dementia
#Insomnia
#Mild anemia
Discharge Plan
-
Patient Disposition: Acute Rehab Facility
Discharge Diagnosis/Procedures: CVA
Diet: Low Cholesterol
Activity: As tolerated
Driving Restrictions: As prior to admission
Other Services: PT
Referrals:
Tiana Whitney MD [Active] - in three to four weeks
Sage Ayers MD [Family Provider] -
Jarrett Rodriguez MD [Active] - in one to two weeks (for quality assurance monitor)
Mary Hebert PA-C [Specified Professional Personl] - 09/19/24 11:00 am (You have a cardiology follow up appointment at the [place] office with Dr. Watson's physician field technical assistant, Mary. Please call with questions. )
Sobeida Zaragoza, DO [Active] - in four to six weeks (schedule EGD)
Prescriptions:
New
clopidogrel 75 mg Tablet
75 mg PO DAILY Qty: 14 0RF
fluticasone propionate [Flonase Allergy Relief] 50 mcg/actuation spray,suspension
1 spray intranasal DAILY Qty: 16 0RF
Continued
aspirin 81 MG tablet,delayed release (DR/EC)
81 mg PO DAILY
escitalopram oxalate 20 MG tablet
20 mg PO DAILY
atorvastatin [Lipitor] 40 mg Tablet
40 mg PO DAILY
risperidone 1 mg Tablet
1 mg PO HS
pramipexole 1.5 mg Tablet Extended Release 24 Hr
1.5 mg PO HS
Patient Comments:
08/16/24- ecw has 9mg daily but patient only filling 1.5mg daily and 0.375mg daily
Changed
pantoprazole [Protonix] [address] for susp in packet
40 mg PO BID Qty: 30 0RF
Discontinued
zolpidem 10 MG tablet
10 mg PO HS
Patient Comments:
family stated patient may have been taking 2 a night, patient sleep for 16 hours yesterday 08/15/24 as per the spouse
Discharge Orders:
Discharge Patient (As Directed); Ordered 08/24/24
Ordered By: Eduard Hsu
Discharge Date and Time
Print Language: AUSTRALIAN
[2024-08-24 15:05] VITALS: BP 131/53
[2024-08-24] MEDS: LOVENOX 40 MG SC (17:09)
== END 2024-08-24 18:30 | DRG 64 ==
LOC: 3 WEST ACU 18:18
PROVIDERS: Emergency Medicine; Internal Medicine; Nuclear Medicine Nuclear Cardiology; Physician Assistant; ADMITTING PHYSICIAN Student in an Organized Health Care Education/Training Program; ATTENDING PHYSICIAN Internal Medicine; CONSULT PHYSICIAN Internal Medicine Cardiovascular Disease; CONSULT PHYSICIAN Physical Medicine & Rehabilitation; CONSULT PHYSICIAN Psychiatry & Neurology Neurology; EMERGENCY PHYSICIAN Student in an Organized Health Care Education/Training Program; FAMILY PHYSICIAN Internal Medicine; OTHER PHYSICIAN Internal Medicine Gastroenterology
PROC: B24BZZ4 Ultrasonography of Heart with Aorta, Transesophageal (ICD-10-PCS; 2024-08-23)
DX: I63.431 Cerebral infarction due to embolism of right posterior cerebral artery (principal); G93.41 Metabolic encephalopathy; F01.53 Vascular dementia, unspecified severity, with mood disturbance; F01.54 Vascular dementia, unspecified severity, with anxiety; G21.4 Vascular parkinsonism; Z66 Do not resuscitate; R47.1 Dysarthria and anarthria; G47.33 Obstructive sleep apnea (adult) (pediatric); G62.9 Polyneuropathy, unspecified; I10 Essential (primary) hypertension; G47.00 Insomnia, unspecified; D64.9 Anemia, unspecified; I65.23 Occlusion and stenosis of bilateral carotid arteries; E78.00 Pure hypercholesterolemia, unspecified; R13.12 Dysphagia, oropharyngeal phase; F32.9 Major depressive disorder, single episode, unspecified; I73.9 Peripheral vascular disease, unspecified; G89.29 Other chronic pain; J01.80 Other acute sinusitis; Z86.73 Personal history of transient ischemic attack (TIA), and cerebral infarction without residual deficits; Z98.1 Arthrodesis status; Z87.891 Personal history of nicotine dependence; Z85.828 Personal history of other malignant neoplasm of skin; Z85.820 Personal history of malignant melanoma of skin; Z79.899 Other long term (current) drug therapy; Z79.82 Long term (current) use of aspirin; Z11.52 Encounter for screening for COVID-19
CPT/HCPCS: 51701; 70450; 70496; 70498; 70551; 71260; 72125; 74177; 74246; 80048; 80053; 80061; 80143; 80179; 80306; 81003; 81015; 82077; 82607; 82728; 82746; 83036; 83540; 83550; 84484; 85025; 85027; 87502; 87811; 92523; 92526; 92610; 93005; 93306; 93312; 93320; 93325; 93880; 97112; 97116; 97163; 97166; 97530; 97535; 99285; Q9967

== ENCOUNTER 2024-09-13 06:40 | Outpatient (RCR) | payer OTHER, SELFPAY | END 2024-09-13 23:59 | disposition home or self-care (01) | LOC: RST 06:40 | PROVIDERS: ATTENDING PHYSICIAN Physical Medicine & Rehabilitation; FAMILY PHYSICIAN Internal Medicine | DX: I69.391 Dysphagia following cerebral infarction (principal); R13.12 Dysphagia, oropharyngeal phase; R26.89 Other abnormalities of gait and mobility; Z73.6 Limitation of activities due to disability | CPT/HCPCS: 92526; 92610; 97110; 97162; 97167; 97535 ==

== ENCOUNTER 2024-10-03 14:19 | Outpatient (RCR) | payer OTHER, SELFPAY | END 2024-10-03 23:59 | disposition home or self-care (01) | LOC: RST 14:19 | PROVIDERS: ATTENDING PHYSICIAN Physical Medicine & Rehabilitation; FAMILY PHYSICIAN Internal Medicine | DX: I69.391 Dysphagia following cerebral infarction (principal); I63.9 Cerebral infarction, unspecified; R13.12 Dysphagia, oropharyngeal phase; R26.89 Other abnormalities of gait and mobility; Z73.6 Limitation of activities due to disability; G20.C Parkinsonism, unspecified | CPT/HCPCS: 92507; 92523; 92526; 96125; 97110; 97112; 97116; 97530; 97535 ==

== ENCOUNTER 2024-11-09 12:50 | Outpatient (RCR) | payer OTHER, SELFPAY | END 2024-11-09 23:59 | disposition home or self-care (01) | LOC: RST 12:50 | PROVIDERS: ATTENDING PHYSICIAN Physical Medicine & Rehabilitation; FAMILY PHYSICIAN Internal Medicine | DX: I69.391 Dysphagia following cerebral infarction (principal); R26.89 Other abnormalities of gait and mobility; Z73.6 Limitation of activities due to disability; G20.C Parkinsonism, unspecified; R13.12 Dysphagia, oropharyngeal phase | CPT/HCPCS: 92507; 92526; 97110; 97112; 97530; 97535 ==

== ENCOUNTER 2024-12-14 12:53 | Outpatient (RCR) | payer OTHER, SELFPAY | END 2024-12-14 23:59 | disposition home or self-care (01) | LOC: RST 12:53 | PROVIDERS: ATTENDING PHYSICIAN Physical Medicine & Rehabilitation; FAMILY PHYSICIAN Internal Medicine | DX: I69.391 Dysphagia following cerebral infarction (principal); R26.89 Other abnormalities of gait and mobility; Z73.6 Limitation of activities due to disability; G20.C Parkinsonism, unspecified; R13.12 Dysphagia, oropharyngeal phase | CPT/HCPCS: 97110; 97112; 97530 ==

== ENCOUNTER 2025-01-01 12:06 | Inpatient (IN) | payer OTHER, SELFPAY ==
[2024-12-31] VITALS (9 sets, daily range): BP systolic 121–202; BP diastolic 57–94; BMI 23.0
[2024-12-31 13:36] LABS: Glucose - Point of Care 110 mg/dl (70-99)
[2024-12-31 13:54] LABS: % Basophils 0.4 % (0-2); % Eosinophils 5.1 % (0-6); % Immature Granulocytes 0.2 % (0-0.5); % Lymphocytes 21.5 % (20.5-51.1); % Monocytes 5.8 % (1.7-9.3); Absolute Eosinophils 0.5 10^3/uL (0-0.7); Absolute Lymphocytes 2.1 10^3/uL (1.2-3.4); Absolute Monocytes 0.6 10^3/uL (0.1-0.6); Absolute Neutrophils 6.7 10^3/uL (1.4-6.5); Hematocrit 34.5 % (39.0-52.0); Mean Corp Hgb Conc. 34.8 g/dL (33.0-37.0); Mean Corpuscular Hgb 31.2 pg (27.0-31.0); Mean Corpuscular Volume 89.6 fL (80.0-94.0); Mean Platelet Volume 10.1 fL (7.4-10.4); Nucleated Red Blood Cells % 0 % (-); Platelet Count 205 10^3/uL (130-400); Red Blood Cell Count 3.85 10^6/uL (4.70-6.10); Red Cell Dist. Width 12.8 % (11.5-14.5)
--- NOTE | 2024-12-31 13:58 | ED.CVA ---
History of Present Illness
General
Chief Complaint: CVA/TIA Symptoms
Time Seen by Provider: 12/31/24 13:42
Onset of Stroke Symptoms
Onset of symptoms known: No
Time pt last seen normal is known: No
History of Present Illness
History of Present Illness:
REVIEW OF OLD RECORDS
- The patient has history of dementia, Parkinson's, has had stroke in the past, BPH, former smoker, diverticular disease. I reviewed records, the patient was admitted with an acute ischemic medial right occipital lobe measuring 2.7 cm. At that
time he was started on clopidogrel and baby aspirin was also continued.
Note:
CHIEF COMPLAINT(S)
Worsening neurological symptoms and unsteadiness.
HISTORY OF PRESENT ILLNESS
The patient is an 79-year-old male with a history of a stroke in July, characterized by a fall in the bathroom, increased quietness, and potential weakness on the left side of the body. Since that event, he has been under treatment with Plavix
and aspirin. Recently, the patient exhibited worsening symptoms including an increase in unsteadiness when walking and slurred speech. The spouse noted that last night, during dinner, the patient experienced coughing and difficulty swallowing, a
possible sign of neurological distress. This morning, around 9:00 AM, the patient struggled with unsteadiness and had to use a rollator for stability. Despite being able to use the rollator, his gait was notably unsteady. The patients speech was
notably slurred, described as a major change from his baseline.
During the clinical examination, the patient displayed good strength with a normal stroke scale score, though there was a visible right-sided facial droop with smiles and ongoing communication difficulties. The patient exhibited right-sided facial
numbness and was not as responsive to questions about current time and personal details, consistent with minor cognitive challenges.
During the evaluation, the examining physician tested limb coordination and vision, which appeared largely intact.
CHRONIC MEDICAL CONDITIONS SIGNIFICANTLY AFFECTING CARE
The patient has a history of a cerebrovascular accident (stroke) and is on antiplatelet therapy with Plavix and aspirin. There is also a history of dysphasia.
PHYSICAL EXAM
- Neurological:
- Good strength observed in limbs; normal [id number] bilaterally, no field cuts, facial asymmetry noted, left facial sensory deficit noted, dysarthria and aphasia, cannot state age and cannot name month
- Right-sided facial droop noted with a smile.
- Major changes in speech, described as slurred and difficult to understand.
- Coordination test with [id number] was satisfactory.
- Vision examination was unremarkable, No field cuts
- General: Appears generally weak and debilitated
- HEENT: Moist oral mucosa
- Cardiovascular: No murmurs, normal heart rate, regular rhythm, No chest wall tenderness
- Pulmonary: No respiratory distress, breath sounds are clear and equal
- Abdomen: Soft with no peritoneal signs, no tenderness
- Psychiatric: The patient has very limited insight and judgment and memory
- Extremities: Nontender, no edema, moves all extremities equally
- Skin: No rash, no lesions
PLAN
The plan includes obtaining a Computed Tomography scan of the head to assess for any acute changes, likely a follow-up from prior stroke history.
DIFFERENTIAL DIAGNOSIS
The Differential Diagnosis includes, in no particular order and is not limited to:
1. Acute ischemic stroke
2. Transient ischemic attack
3. Intracranial hemorrhage
4. Brain tumor
5. Infection (e.g., meningitis or encephalitis)
6. Epileptic seizure with postictal state
7. Hypoglycemia
8. Austin palsy
9. Medication side effect or overdose
10. Dementia with acute deterioration
RADIOLOGY
- CT head obtained which was unremarkable
EKG
- Sinus 53, normal axis, normal intervals other than first-degree AV block
LABS
- White count normal, hemoglobin 12.0 chemistries unremarkable
UPDATE
- I sent message to neurology on-call, Dr. Whitney: JESSICA JASON, ROOM [address], 79M. H/o dementia and Parkinson's. Daughter and very concerned for stroke. 2.7cm infarct R medial occipital lobe Jul discharged on aspirin / plavix. Last night,
trouble swallowing, coughing, markedly worse speech and aphasia today at some point (timing of everything is not clear, but worsened last night into today). Equal strength, no field cuts, facial asymmetry, L facial sens deficit, no coordination
problems. Could not correctly answer age and month. Dr. Whitney recommends patient to have an MRI.
Dr. Whitney evaluated the patient at 4 PM, I have asked Dr. Meyer to keep patient in the hospital. On reassessment, clinical condition remains unchanged from
Past History
Past History
ED Past Medical History: Cancer (Melanoma), CVA, GERD, Hypercholesterolemia, Psychiatric (Anxiety) and Other (RA)
ED Past Surgical History: Orthopedic and Other (Left carotid endarterectomy January 2017)
Patient has exhibited threatening behavior?: No
PSI?: No
Social History
Tobacco: Former smoker (Quit in 1979)
Alcohol: Occasional
Drug: None
Personal:
Living: with family
Employment: Retired
Family History
Family History: Other (Noncontributory)
Phy Exam
Physical Exam
Physical Exam:
See HPI
Course
Orders/Labs/Results
Orders:
Orders
12/31/24 13:36
Electrocardiogram (*1) Urgent
Reason for Study: Other
Other Reason for Exam: Possible Stroke
EKG- Treatment ONCE
12/31/24 13:45
Complete Blood Count/With Diff Urgent
Comprehensive Metabolic Panel Urgent
PTT Urgent
Prothrombin Time Urgent
Troponin I Urgent
12/31/24 14:10
CT Head W/o Iv Contrast Urgent
Comment:
Reason For Exam: worsening aphasia and dysarthria
Abnormal Lab Results
12/31/24 12/31/24
13:35 13:45
RBC 3.85 L 10^6/uL
(4.70-6.10)
Hgb 12.0 L g/dL
(13.0-18.0)
Hct 34.5 L %
(39.0-52.0)
MCH 31.2 H pg
(27.0-31.0)
Absolute Neuts (auto) 6.7 H 10^3/uL
(1.4-6.5)
Chloride 110 H mmol/L
(98-107)
Glucose 114 H mg/dl
(70-99)
Total Protein 6.2 L g/dl
(6.3-8.2)
POC Glucose 110 H mg/dl
(70-99)
12/31/24 13:45
12/31/24 13:45
Vital Signs
Initial and Last Documented VS:
Initial Vital Signs
BP
153/65
12/31/24 13:33
Last Documented Vital Signs
Temp Pulse Resp BP Pulse Ox
36.4 C 53 18 148/57 98
12/31/24 13:39 12/31/24 14:00 12/31/24 14:00 12/31/24 14:00 12/31/24 14:00
*Pulse Oximetry
Patient hypoxic: no (99% room air-normal)
*Critical Care Note
Total Time (30-74mins, 75-104mins- exclusive of procedures): Not Applicable
ED Attending Note
-
Portions of this chart may have been created with voice recognition software.� Occasional wrong word or��sound alike� substitutions may have occurred due to the inherent limitations of voice recognition software.
Discharge Plan
Departure
Patient Disposition: Admit
Date of Disposition: 12/31/24
Time of Disposition: 16:01
Presentation/result/management discussed w/ accepting MD/DO: Hospitalist
Patient with high blood pressure during this ER visit?: Yes
Discharge Problem:
Dysarthria
Prescriptions:
No Action
escitalopram oxalate 20 MG tablet
20 mg PO DAILY
atorvastatin [Lipitor] 40 mg Tablet
40 mg PO DAILY
risperidone 1 mg Tablet
1 mg PO HS
pramipexole [Mirapex ER] 1.5 mg Tablet Extended Release 24 Hr
1.5 mg PO HS
Patient Comments:
08/16/24- ecw has 9mg daily but patient only filling 1.5mg daily and 0.375mg daily
fluticasone propionate [Flonase Allergy Relief] 50 mcg/actuation spray,suspension
1 spray intranasal DAILY Qty: 16 0RF
multivitamin with folic acid [Tab-A-Javier] 400 mcg Tablet
1 tab PO DAILY Qty: 30 0RF
clopidogrel 75 mg Tablet
75 mg PO DAILY 3 Days Qty: 3 0RF
aspirin 81 MG tablet,delayed release (DR/EC)
81 mg PO DAILY Qty: 0 0RF
pantoprazole [Protonix] [address] for susp in packet
40 mg PO BID Qty: 30 0RF
Referrals:
Sage Ayers MD [Family Provider, Internal Medicine]
Interventions
Interventions:
*Risk Screen - Suicide Last Done: 12/31/24 13:39
*General Assessment Last Done: 12/31/24 13:39
*Neglect/Abuse Screening Last Done: 12/31/24 13:39
*ED COVID-19 Vaccine History Last Done: 12/31/24 13:39
ED- Pulmonary Assessment Last Done: 12/31/24 14:08
ED- Neurological Assessment Last Done: 12/31/24 13:39
ED- Cardiac Assessment Last Done: 12/31/24 14:08
Discharge Date and Time
Print Language: MOHAWK
[2024-12-31 14:11] LABS: ALT (SGPT) 18 U/L (0-50); AST (SGOT) 23 U/L (17-59); Albumin 3.7 g/dl (3.5-5.0); Alkaline Phosphatase 82 U/L (38-126); Blood Urea Nitrogen 17 mg/dl (9-20); Calcium 9.1 mg/dl (8.4-10.2); Carbon Dioxide 28 mmol/L (22-30); Chloride 110 mmol/L (98-107); Estimated Creatinine Clearance 64 ml/min; Glucose 114 mg/dl (70-99); INR 1.09; PT 14.4 Sec (11.4-14.6); Potassium 4.5 mmol/L (3.5-5.1); Sodium 144 mmol/L (135-145); Total Bilirubin 0.5 mg/dl (0.2-1.3); Total Protein 6.2 g/dl (6.3-8.2); eGFR > 60.00
[2024-12-31 14:12] LABS: APTT 32.4 Sec (23.4-35.0)
[2024-12-31 14:16] LABS: Troponin I < 0.012 ng/ml
--- NOTE | 2024-12-31 16:24 | CON.NEURO ---
Consultation
Order
Date of Consultation: 12/31/24
Reason for Consult: Dysarthria, unsteady gait
Neurology Consultation Note.
HPI: This is a 79-year-old RH man who presented to [facility] on 12/31/2024 with new dysarthria and worsening of imbalance and dysphagia.
According to Ms. Nieves the patient was noted to have increased lethargy, unsteadiness, and worsening slurred speech. The patient's daughter reports that this morning, he was very lethargic and slept until about 9 o'clock, which is unusual. He was
noted to be unsteady on his feet and slurring his words significantly more than usual.
The patient's speech has been slow since his stroke in July, but the slurring has worsened recently. His daughter states that yesterday he was speaking slowly but clearly, and the increased slurring was noticed this morning. Mr. Nieves also
reports difficulties with swallowing, which have been present for about 2 years but have worsened since his stroke. Yesterday, he choked multiple times while eating, having to get up twice to spit out food and cough into the sink.
The patient has been adherent to his medication regimen with no recent skipping, diarrhea, or vomiting reported. He participated in therapy for 3 months following his stroke and completed the [facility] from July to October. Despite these
interventions and previous improvement in swallowing function, his dysphagia appears to have progressed over the past month.
CT head-no acute infarcts.
Brain MRI wo peg (08/17/2024) an acute R DYE PENETRANT TESTING TECHNICIAN territory infarct.
CTA head/neck-57% of the R ICA stenosis, moderate L M2 stenosis.
ER VS: 153/65, 54, afebrile
PMH: R DYE PENETRANT TESTING TECHNICIAN stroke(07/2024), left caudate stroke(2016), DLP, GERD, Parkinsonism/dementia, MDD, history of SI, Malignant melanoma , RA, BCC, h/o severe lumbar scoliosis, diverticulosis
PSH: L CEA, cervical fusion C5,C6, Spinal fusion L5,S1, bilateral cataract surgery, Left inguinal herniorrhaphy, Umbilical hernia repair, spinal stimulator(removed)
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
All: NKDA
ROS: Negative for fever.
Gastrointestinal: positive for worsening of chronic dysphagia
Genitourinary: Positive for urinary incontinence
Skin: Negative for rash.
Neurological: positive for progressive aphasia, imbalance
General: Well developed. In no acute distress.
Cardio: Regular rate and rhythm without murmur. Extremities are without cyanosis or edema.
Neuro:
Mental Status: Alert, oriented to name, person. Increased processing time. Severe expressive greater than receptive aphasia. Follows simple requests. No hemineglect
Cranial Nerves: Pupils are equally round, surgical. EOMs full. Visual fernandez full to confrontation. Mild right facial weakness. No ptosis. No nystagmus. Impaired hearing AU. The palate elevated well. SCMs and traps 5/5. Tongue midline.
Moderate labial and lingual dysarthria.
Motor: No pronator or leg drift. All limbs are antigravity
Reflexes: Bilateral grasp
Sensory: Absent vibration at the toes, ankles and preserved at the knees.
Coordination: No dysmetria or tremor.
Gait: deferred
Assessment and Plan:
I. Acute aphasia/dysarthria. History of moderate L M2 stenosis.
II. Chronic right DYE PENETRANT TESTING TECHNICIAN, MCA and left caudate nuclear infarcts, moderate R ICA stenosis.
III. Intracranial atherosclerosis (Left M2, Left V4)
IV. History of L CEA
V. Vascular parkinsonism/dementia
. History of malignant melanoma
-Aspiration precautions.
-Avoid cerebral hypoperfusion
-Plavix load, continue DAPT
-Lipitor 40 mg nightly
-Stat CTA head and neck, CTP
-Brain MRI without peg
-Please check UA, urine culture
-DVT prophylaxis.
- The case was discussed with patient's daughter and spouse present at bedside
I personally reviewed all radiology and labs along with past medical records pertinent to current medical problems. Total time spent in patient care is 60 minutes.
Thank you for allowing us to participate in the care of this patient. We will continue to follow. Please do not hesitate to contact us with any questions or concerns.
Subjective/Objective
Subjective Data
Date of Service: December 31, 2024
Objective Data
Vital Signs
Temp Pulse Resp BP Pulse Ox
36.4 C 53 18 148/57 98
12/31/24 13:39 12/31/24 14:00 12/31/24 14:00 12/31/24 14:00 12/31/24 14:00
Lab Results
12/31/24 13:45
12/31/24 13:45
PT 14.4 Sec (11.4-14.6) 12/31/24 13:45
INR 1.09 12/31/24 13:45
APTT 32.4 Sec (23.4-35.0) 12/31/24 13:45
Sodium 144 mmol/L (135-145) 12/31/24 13:45
Potassium 4.5 mmol/L (3.5-5.1) 12/31/24 13:45
BUN 17 mg/dl (9-20) 12/31/24 13:45
Glucose 114 mg/dl (70-99) H 12/31/24 13:45
Calcium 9.1 mg/dl (8.4-10.2) 12/31/24 13:45
Patient Allergies
No Known Allergies Allergy (Verified 04/09/24 09:50)
Medications
-
Home Medications
�Medication �Instructions �Recorded
escitalopram oxalate 20 mg tablet 20 mg PO DAILY depression/anxiety 04/06/20
atorvastatin 40 mg tablet (Lipitor) 40 mg PO DAILY High Cholesterol 08/16/24
pramipexole 1.5 mg tablet,extended 1.5 mg PO HS parkinson's disease 08/16/24
release 24 hr (Mirapex ER)
risperidone 1 mg tablet 1 mg PO HS Mental Health/Anxiety 08/16/24
fluticasone propionate 50 1 spray intranasal DAILY #16 grams 08/24/24
mcg/actuation nasal
spray,suspension (Flonase Allergy
Relief)
aspirin 81 mg tablet,delayed 81 mg PO DAILY stroke. continue 09/03/24
release aspirin every day #0 tabs
clopidogrel 75 mg tablet 75 mg PO DAILY Stroke 3 days #3 09/03/24
tabs
multivitamin with folic acid 400 1 tab PO DAILY supplement #30 tabs 09/03/24
mcg tablet (Tab-A-Javier)
pantoprazole 40 mg granules 40 mg PO BID Gastrointestinal 09/03/24
delayed-release for susp in packet issue #30 ea
(Protonix)
Vital Signs and Labs
-
Vital Signs and Labs:
Vital Signs
Temp Pulse Resp BP Pulse Ox
36.4 C 53 18 148/57 98
12/31/24 13:39 12/31/24 14:00 12/31/24 14:00 12/31/24 14:00 12/31/24 14:00
Lab Results
12/31/24 13:45
12/31/24 13:45
PT 14.4 Sec (11.4-14.6) 12/31/24 13:45
INR 1.09 12/31/24 13:45
APTT 32.4 Sec (23.4-35.0) 12/31/24 13:45
Sodium 144 mmol/L (135-145) 12/31/24 13:45
Potassium 4.5 mmol/L (3.5-5.1) 12/31/24 13:45
BUN 17 mg/dl (9-20) 12/31/24 13:45
Glucose 114 mg/dl (70-99) H 12/31/24 13:45
Calcium 9.1 mg/dl (8.4-10.2) 12/31/24 13:45
Home Medications
-
Home Medications
escitalopram oxalate 20 mg tablet 20 mg PO DAILY depression/anxiety 04/06/20
atorvastatin 40 mg tablet (Lipitor) 40 mg PO DAILY High Cholesterol 08/16/24
pramipexole 1.5 mg tablet,extended release 24 hr (Mirapex ER) 1.5 mg PO HS parkinson's disease 08/16/24
risperidone 1 mg tablet 1 mg PO HS Mental Health/Anxiety 08/16/24
fluticasone propionate 50 mcg/actuation nasal spray,suspension (Flonase Allergy Relief) 1 spray intranasal DAILY #16 grams 08/24/24
aspirin 81 mg tablet,delayed release 81 mg PO DAILY stroke. continue aspirin every day #0 tabs 09/03/24
clopidogrel 75 mg tablet 75 mg PO DAILY Stroke 3 days #3 tabs 09/03/24
multivitamin with folic acid 400 mcg tablet (Tab-A-Javier) 1 tab PO DAILY supplement #30 tabs 09/03/24
pantoprazole 40 mg granules delayed-release for susp in packet (Protonix) 40 mg PO BID Gastrointestinal issue #30 ea 09/03/24
[2024-12-31 16:33] LABS: Urine Albumin Negative (Neg - Trace); Urine Bilirubin Negative (Negative); Urine Character Clear (Clear); Urine Color Yellow; Urine Glucose Negative (Negative); Urine Ketone Negative (Negative); Urine Leukocyte Negative (Negative); Urine Nitrite Negative (Negative); Urine Occult Blood Negative (Negative); Urine Specific Gravity 1.015 (<1.030); Urine Urobilinogen Negative (Neg - 1+)
--- NOTE | 2024-12-31 17:47 | HPS.HSE ---
Family Physician
-
Family Physician: Sage Ayers
Chief Complaint
-
Worsening speech, swallowing. Lethargy.
History of Present Illness
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
diverticulosis presented with worsening speech disturbance -- worse than usual (noticed to become worse this morning), increase difficulty swallowing on top of his chronic dysphagia, some confusion, lethargy and general weakness. History was
obtained from patient's Mrs. Nieves as patient was not a reliable historian and had poor insight. Patient was in [facility] following his recent stroke. Patient's denied patient having any other new symptoms.
Medical History
Past Medical History
Past Medical History: Reports Other (As per HPI above)
Past Surgical History: Reports Other (L CEA, cervical fusion C5,C6, Spinal fusion L5,S1, bilateral cataract surgery, Left inguinal herniorrhaphy, Umbilical hernia repair, spinal stimulator(removed))
Social History
Tobacco: Former Smoker
Alcohol: Occasional
Drug: None
Family History
Family History: Cancer
Allergies / Home Medications
Allergies reflects when Allergies were last updated in [facility].
Home Medications with original date entered in [facility]
Allergy/Medication List:
Allergies
Allergy/AdvReac Type Severity Reaction Status Date / Time
No Known Allergies Allergy Verified 04/09/24 09:50
Home Medications
escitalopram oxalate 20 mg tablet 20 mg PO DAILY depression/anxiety 04/06/20
pramipexole 1.5 mg tablet,extended release 24 hr (Mirapex ER) 1.5 mg PO QPM parkinson's disease 08/16/24
risperidone 1 mg tablet 1 mg PO HS Mental Health/Anxiety 08/16/24
Lactobac no.2-Bifidobac no.1-S. thermo 112.5 billion cell capsule (Visbiome) 1 cap PO DAILY 12/31/24
apixaban 5 mg tablet (Eliquis) 5 mg PO BID 12/31/24
pantoprazole 40 mg granules delayed-release for susp in packet (Protonix) 40 mg PO HS Gastrointestinal issue 12/31/24
pramipexole 0.375 mg tablet,extended release 24 hr 0.375 mg PO QPM 12/31/24
Review of Systems
-
History Source: Family
A 12 point ROS was completed and negative except as noted: Yes
Physical Exam
Vital Signs
Vital Signs
Temp Pulse Resp BP Pulse Ox
97.5 F 58 19 121/83 100
12/31/24 13:39 12/31/24 16:30 12/31/24 16:30 12/31/24 16:00 12/31/24 15:45
Physical Exam
General: No Apparent Distress and Comfortable
HEENT: NormoCephalic and Moist mucous membranes
Respiratory: Clear
Cardiac: S1/S2 and Regular Rhythm
GI: Soft, Non Tender and Normal Bowel Sounds
Musculoskeletal: No Cyanosis and No Edema
Skin: Warm and Dry
Neuro: Awake, Alert, Cranial Nerves Intact (Except impaired hearing and slight right facial weakness, and dysarthria.) and Other (Severe aphasia )
Psych: Calm, Confused and Other (Poor insight)
Laboratory Results
-
12/31/24 13:45
12/31/24 13:45
Laboratory Results
PT 14.4 Sec (11.4-14.6) 12/31/24 13:45
INR 1.09 12/31/24 13:45
APTT 32.4 Sec (23.4-35.0) 12/31/24 13:45
Total Bilirubin 0.5 mg/dl (0.2-1.3) 12/31/24 13:45
AST 23 U/L (17-59) 12/31/24 13:45
ALT 18 U/L (0-50) 12/31/24 13:45
Alkaline Phosphatase 82 U/L (38-126) 12/31/24 13:45
Troponin I < 0.012 ng/ml 12/31/24 13:45
Impression/Plan
-
Assessment/Plan
Presentation with worsening speech disturbance -- worse than usual (noticed to become worse on the morning of 12/31/24), acute on chronic dysphagia, some confusion, lethargy and general weakness/imbalance
History of slow speech since stroke
Right RUSSIAN HISTORY PROFESSOR stroke (07/2024)
History of moderate L M2 stenosis.
Chronic right RUSSIAN HISTORY PROFESSOR, MCA and left caudate nuclear infarcts, moderate R ICA stenosis.
Intracranial atherosclerosis
History of left CEA
History of left caudate stroke (2016)
-Aspiration precautions.
-Avoid cerebral hypoperfusion
-Plavix load. Start Aspirin 81 mg daily and continue Plavix at 75 mg daily. Confirmed with neurology DAPT regimen.
-Lipitor 40 mg HS
-Stat CTA head and neck, CT Perfusion scan
-Brain MRI without contrast
-Check UA and urine culture as per neurology recommendations
Hyperlipidemia
-Start Atorvastatin 40 mg nightly
GERD
-Continue Protonix 40 mg PO HS
Parkinsonism/dementia
-Continue Pramipexole
MDD
-Continue Risperidone
-Continue Escitalopram
History of SI
History of Malignant melanoma
RA
BCC
History of severe lumbar scoliosis and diverticulosis
DVT Prophylaxis: SCDs. Lovenox
Code Status: Full Code
--- NOTE | 2024-12-31 18:00 | EDRN ---
Pt failed swallow screen with this RN. Spoke with Dr. Whitney regarding STAT PO Plavix. Per Dr. Whitney okay to crush in applesauce and give to patient. Will administer as ordered
[2024-12-31] MEDS: PLAVIX 300 MG PO (18:02)
[2024-12-31] MEDS: LOVENOX 40 MG SC (20:34)
[2024-12-31] MEDS: LOW STRENGTH ASPIRIN 81 MG PO (20:34)
[2024-12-31] MEDS: LIPITOR 40 MG PO (20:34)
[2024-12-31] MEDS: NSS 1000 IV (20:35)
[2024-12-31] MEDS: PROTONIX 40 MG PO (21:46)
[2024-12-31] MEDS: NON-FORMULARY ITEM 1 MG PO ×2 (21:46→21:47)
[2024-12-31] MEDS: RISPERDAL 1 MG PO (21:46)
[2025-01-01] MEDS: MELATONIN 5 MG PO (00:38)
[2025-01-01 01:04] LABS: Urine Albumin Negative (Neg - Trace); Urine Bilirubin Negative (Negative); Urine Character Clear (Clear); Urine Color Straw; Urine Glucose Negative (Negative); Urine Ketone Negative (Negative); Urine Leukocyte Negative (Negative); Urine Nitrite Negative (Negative); Urine Occult Blood Negative (Negative); Urine Urobilinogen Negative (Neg - 1+)
[2025-01-01 03:42] VITALS: BP 176/75
[2025-01-01 05:21] VITALS: BMI 23.0
[2025-01-01 07:00] VITALS: BP 140/74
[2025-01-01 07:21] LABS: Hematocrit 32.7 % (39.0-52.0); Hemoglobin 11.6 g/dL (13.0-18.0); Mean Corp Hgb Conc. 35.5 g/dL (33.0-37.0); Mean Corpuscular Hgb 30.9 pg (27.0-31.0); Mean Corpuscular Volume 87.2 fL (80.0-94.0); Mean Platelet Volume 9.9 fL (7.4-10.4); Platelet Count 189 10^3/uL (130-400); Red Blood Cell Count 3.75 10^6/uL (4.70-6.10); Red Cell Dist. Width 12.6 % (11.5-14.5); White Blood Cell Count 7.4 10^3/uL (4.8-10.8)
[2025-01-01 07:43] LABS: Blood Urea Nitrogen 12 mg/dl (9-20); Calcium 8.7 mg/dl (8.4-10.2); Carbon Dioxide 26 mmol/L (22-30); Chloride 109 mmol/L (98-107); Estimated Creatinine Clearance 70 ml/min; Glucose 89 mg/dl (70-99); Magnesium 1.9 mg/dl (1.6-2.3); Potassium 3.8 mmol/L (3.5-5.1); Sodium 140 mmol/L (135-145); eGFR > 60.00
--- NOTE | 2025-01-01 08:08 | W.PN.HOSP.TC ---
Addendum entered and electronically signed by Omid Doe MD 01/01/25 19:01:
Per nurse, patient and his now would like a Video Swallow Test to evaluate for any changes in swallowing function compared to last time. I just ordered a Video Swallow Test. Also, per nurse, patient and his would like patient to be
continued on the current modified diet for now, with aspiration precautions.
Original Note:
Today's Communication/Plan
-
See plan
Assessment / Plan
Assessment / Plan
Physical Exam
General: No Apparent Distress and Comfortable
HEENT: NormoCephalic and Moist mucous membranes
Respiratory: Clear
Cardiac: S1/S2 and Regular Rhythm
GI: Soft, Non Tender and Normal Bowel Sounds
Musculoskeletal: No Cyanosis and No Edema
Skin: Warm and Dry
Neuro: Awake, Alert, Oriented to person and place. Cranial Nerves Intact (Except impaired hearing and slight right facial weakness, and dysarthria.) and Other (Severe aphasia -- improved)
Psych: Calm, Confused and Other (Poor insight)
Assessment/Plan
Presentation with worsening speech disturbance -- worse than usual (noticed to become worse on the morning of 12/31/24), acute on chronic dysphagia, some confusion, lethargy and general weakness/imbalance
Acute/Subacute Strokes -- suspected embolic
History of slow speech since stroke
Right PANTS CUTTER stroke (07/2024)
History of moderate L M2 stenosis.
Chronic right PANTS CUTTER, MCA and left caudate nuclear infarcts, moderate R ICA stenosis.
Intracranial atherosclerosis
History of left CEA
History of left caudate stroke (2016)
-Aspiration precautions.
-Avoid cerebral hypoperfusion
-Plavix load given 12/31/24. Continue Aspirin 81 mg daily and continue Plavix at 75 mg daily. Confirmed with neurology DAPT regimen.
-Lipitor 40 mg HS
-CTA head and neck: no left ICA restenosis; Moderate narrowing of the proximal M2 branches of the left MCA, at the bifurcation of the left M1 segment
-Brain MRI without contrast: several tiny nonhemorrhagic acute/subacute infarcts within the left centrum semiovale/periventricular region
-Outpatient Eliquis failure?
-Given suspected embolic stroke and the fact patient already on Eliquis, will consult cardiology for their evaluation and recommendations
-Checked UA as per neurology recommendations: unremarkable results
-Aspiration precautions and modified diet (see below)
Asymptomatic Bradycardia
-Continue to monitor on tele
Hyperlipidemia
-Continue newly started Atorvastatin 40 mg nightly
GERD
-Continue Protonix 40 mg PO HS
Parkinsonism/dementia
-Continue Pramipexole
MDD
-Continue Risperidone
-Continue Escitalopram
Hypertension
- No history of such, but elevated blood pressure noted in the hospital
History of SI
History of Malignant melanoma
RA
BCC
History of severe lumbar scoliosis and diverticulosis
DVT Prophylaxis: SCDs. Lovenox
Code Status: Full Code
Family Discussions:
Per speech pathologist communication: 'Farzad Nieves [phone] for swallow eval bedside had coughing w/ thin liquids, no s/s with puree but has history of dysphagia and silent aspiration from prior video swallow studies. In past patient/ family opted to
continue diet as he had not been sick w/ PNA. Today he has congested cough. Recommend NPO for now. Options include 1) NPO and repeat video vs 2) resume baseline diet of L5 minced/moist and Thin understanding aspiration complications. Patient
declined repeat video swallow but I don't know he can make that decision at present w/ aphasia and cognitive deficits. Rec further C discussion w/ family.'
On 01/01/25, I spoke to patient's daughter Kvng and patient's spouse Desiree. I explained to them the findings of speech therapist and options for feeding. They mentioned that patient wants to eat, for quality of life. They mentioned that he has
chronic aspiration and they have been using strategies to manage aspiration at home and it has been working. I [place] Texted patient's nurse to coordinate feeding strategies with the family. Family also said they want to make sure no straws which is
very reasonable. Patient's family agreed to continue modified while following aspiration precautions.
Anticipated Discharge: 24 - 48 hours
Subjective/Interval History
-
Date of Service: January 01, 2025
Patient was seen and examined. He denied any new symptoms or complaints.
Objective Data
-
Labs:
Laboratory Results
01/01/25
06:41
WBC 7.4
Hgb 11.6 L
Hct 32.7 L
Plt Count 189
Sodium 140
Potassium 3.8
Chloride 109 H
Carbon Dioxide 26
BUN 12
Creatinine 0.9
Glucose 89
Calcium 8.7
Vital Signs:
Vital Signs
Temp Pulse Resp BP Pulse Ox
98.3 F 52 18 176/75 99
01/01/25 03:42 01/01/25 03:42 01/01/25 03:42 01/01/25 03:42 01/01/25 03:42
I&O
12/31/24 01/01/25 01/02/25
06:59 06:59 06:59
Output Total 325 / 325
Balance -325 / -325
[2025-01-01] MEDS: VISBIOME PO (08:18)
[2025-01-01] MEDS: LEXAPRO PO (08:18)
[2025-01-01] MEDS: PLAVIX PO (08:18)
[2025-01-01] MEDS: LOW STRENGTH ASPIRIN PO (08:18)
[2025-01-01 08:33] LABS: Vitamin B12 472 pg/ml (239-931)
[2025-01-01] MEDS: NSS 1000 IV ×2 (10:37→23:31)
[2025-01-01 11:00] VITALS: BP 146/71
--- NOTE | 2025-01-01 12:09 | PTOTSP ---
DYNAMICS AX DEVELOPER Evaluations
Patient w/ signs concerning for pharyngeal dysphagia and overt signs of aspiration with thin liquids. Cannot r/o silent aspiration bedside. Patient has a history of mild oral and moderate to severe pharyngeal dysphagia per video swallow study
08/09/2024 with response and silent aspiration. At that time a diet was continued (minced/moist, thin) as no known pulmonary aspiration complications were present.
Per chart review, family reported worsened dysphagia preceding this admission. Risk for worsened dysphagia is elevated with new CVA. Chronic risk factors include prior CVAs, Parkinsonism, dementia, RA, and GERD.
Options include: 1) NPO and repeat video swallow study vs 2) resume baseline diet understanding aspiration risks. Further GOC discussion with family warranted as patient's aphasia and cognitive impairments limit his ability to participate in GOC
discussions at present.
Patient with moderate aphasia (Quick Aphasia Battery Form 2 = 6.23), mild dysarthria (100% intelligible), and cognitive deficits. Aphasia is worse than baseline (Quick Aphasia Battery Form 1= 7.77 as of 08/20/2024).
Recommend:
1. NPO
2. Medications: non-oral
3. Oral care 3x daily
4. Repeat video swallow study pending GOC
5. Continued dysphagia tx, language tx, and cognitive linguistic evaluation at the acute care level.
--- NOTE | 2025-01-01 13:24 | W.PN.NEURO.1 ---
Today's Communication / Plan
-
.
Subjective/Objective
Subjective Data
Date of Service: January 01, 2025
Neurology follow-up note
24h events: hypertensive up to at 20:30 on 12/31/2024.
Ms. Nieves reports no complaints.
Brain MRI wo peg (12/31/2024)several tiny nonhemorrhagic acute/subacute infarcts within the left centrum semiovale/periventricular region.
CTA head/neck-no left ICA restenosis; Moderate narrowing of the proximal M2 branches of the left MCA, at the bifurcation of the left M1 segment.
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
PSH: L CEA, cervical fusion C5,C6, Spinal fusion L5,S1, bilateral cataract surgery, Left inguinal herniorrhaphy, Umbilical hernia repair, spinal stimulator(removed)
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
All: NKDA
ROS: Negative for fever.
Gastrointestinal: positive for worsening of chronic dysphagia
Genitourinary: Positive for urinary incontinence
Skin: Negative for rash.
Neurological: Negative for headache, change in strength or vision.
General: Well developed. In no acute distress.
Cardio: Regular rate and rhythm without murmur. Extremities are without cyanosis or edema.
Neuro:
Mental Status: Alert, oriented to name, age, hospital only. Increased processing time. Expressive aphasia, improved from yesterday; follows simple requests. No hemineglect
Cranial Nerves: Pupils are equally round, surgical. EOMs full. Visual fernandez full to confrontation. Mild right facial weakness. No ptosis. No nystagmus. Impaired hearing AU. The palate elevated well. SCMs and traps 5/5. Tongue midline. Mild
dysarthria
Motor: No pronator or leg drift. All limbs are antigravity
Reflexes: Bilateral grasp
Sensory: Absent vibration at the toes, ankles and preserved at the knees.
Coordination: No dysmetria or tremor.
Gait: deferred
Assessment and Plan:
I. Acute L ACh and lateral lenticulostriate arteries strokes, likely embolic. DOAC treatment failure? For patients with stroke on DOACs with good compliance a noncardioembolic stroke mechanism (eg, malignancy) is often the cause, although
cardioembolism may account for the majority. If a thrombus is present despite appropriate dosing and compliance, it is reasonable to change to another DOAC, but optimal treatment is uncertain, and no consensus exists.
II. Chronic right ASSET PROTECTION ASSOCIATE, MCA and left caudate nuclear infarcts, moderate R ICA stenosis. ESUS.
III. Intracranial/extracranial atherosclerosis (Left M2, Left V4). H/o L CEA.
IV. History of malignant melanoma
V. Vascular parkinsonism/dementia
-Aspiration precautions.
-Avoid cerebral hypoperfusion
-Based on OPTIMAS trial the rates of symptomatic ICH were similarly low for both early (<4 days from stroke onset) and late (>5 days) DOAC administration, and the composite outcome of stroke or hemorrhage�with early initiation was marginally
lower�at 30 but not 90 days. It is remains unclear whether earlier DOAC treatment reduces the risk of recurrent ischemic stroke.
-Continue DAPT
-Lipitor 40 mg nightly
-PT, Speech therapy
-Please obtain records from patient's cardiology regarding indications for Eliquis
-DVT prophylaxis.
-The case was discussed with patient's daughter in details.
I personally reviewed all radiology and labs along with past medical records pertinent to current medical problems. Total time spent in patient care is 60 minutes.
Thank you for allowing us to participate in the care of this patient. We will continue to follow. Please do not hesitate to contact us with any questions or concerns.
Objective Data
Vital Signs
Temp Pulse Resp BP Pulse Ox
36.6 C 55 16 146/71 98
01/01/25 11:00 01/01/25 11:00 01/01/25 11:00 01/01/25 11:00 01/01/25 11:00
Lab Results
01/01/25 06:41
01/01/25 06:41
PT 14.4 Sec (11.4-14.6) 12/31/24 13:45
INR 1.09 12/31/24 13:45
APTT 32.4 Sec (23.4-35.0) 12/31/24 13:45
Sodium 140 mmol/L (135-145) 01/01/25 06:41
Potassium 3.8 mmol/L (3.5-5.1) 01/01/25 06:41
BUN 12 mg/dl (9-20) 01/01/25 06:41
Glucose 89 mg/dl (70-99) 01/01/25 06:41
Calcium 8.7 mg/dl (8.4-10.2) 01/01/25 06:41
Vitamin B12 472 pg/ml (239-931) 01/01/25 06:41
Patient Allergies
No Known Allergies Allergy (Verified 04/09/24 09:50)
Vital Signs and Labs
-
Vital Signs and Labs:
Vital Signs
Temp Pulse Resp BP Pulse Ox
36.6 C 55 16 146/71 98
01/01/25 11:00 01/01/25 11:00 01/01/25 11:00 01/01/25 11:00 01/01/25 11:00
Lab Results
01/01/25 06:41
01/01/25 06:41
PT 14.4 Sec (11.4-14.6) 12/31/24 13:45
INR 1.09 12/31/24 13:45
APTT 32.4 Sec (23.4-35.0) 12/31/24 13:45
Sodium 140 mmol/L (135-145) 01/01/25 06:41
Potassium 3.8 mmol/L (3.5-5.1) 01/01/25 06:41
BUN 12 mg/dl (9-20) 01/01/25 06:41
Glucose 89 mg/dl (70-99) 01/01/25 06:41
Calcium 8.7 mg/dl (8.4-10.2) 01/01/25 06:41
Vitamin B12 472 pg/ml (239-931) 01/01/25 06:41
Medications
-
Medications:
Generic Name Dose Route Start Last Admin
Trade Name Freq PRN Reason Stop Dose Admin
Aspirin 81 mg 12/31/24 18:50 01/01/25 08:18
Aspirin 81 Mg Chewable Tablet PO 01/28/25 18:49 Not Given
DAILY VEGA
Atorvastatin Calcium 40 mg 12/31/24 19:00 12/31/24 20:34
Atorvastatin (Lipitor) 40 Mg Tablet PO 01/28/25 18:59 40 mg
QPM VEGA Administration
Bisacodyl 10 mg 12/31/24 19:59
Bisacodyl 10 Mg Rectal Suppository RECTAL 01/28/25 19:58
[id number] PRN
constipation
Clopidogrel Bisulfate 75 mg 01/01/25 08:00 01/01/25 08:18
Clopidogrel 75 Mg Tablet PO 01/29/25 07:59 Not Given
DAILY VEGA
Enoxaparin Sodium 40 mg 12/31/24 19:59 12/31/24 20:34
Enoxaparin Sodium 40 Mg/0.4 Ml Syringe SC 01/28/25 19:58 40 mg
QPM VEGA Administration
Escitalopram Oxalate 20 mg 01/01/25 08:00 01/01/25 08:18
Escitalopram 20 Mg Tablet PO 01/29/25 07:59 Not Given
DAILY VEGA
Sodium Chloride 1,000 mls @ 75 mls/hr 12/31/24 19:59 01/01/25 10:37
Nss IV 1,000 mls
.[id number] VEGA Administration
Lactobacillus/Bifidobacterium 1 cap 01/01/25 08:00 01/01/25 08:18
Lactobac/Bifidobac (Visbiome) PO 01/29/25 07:59 Not Given
DAILY VEGA
Pramipexole 0.375 Mg 0 mg 12/31/24 19:59 12/31/24 21:46
Er Po Qpm PO 01/28/25 19:58 1 mg
QPM VEGA Administration
Pramipexole [Mirapex 0 mg 12/31/24 19:59 12/31/24 21:47
Er] 1.5 Mg Er Po PO 01/28/25 19:58 1 mg
Qpm QPM VEGA Administration
Pantoprazole Sodium 40 mg 12/31/24 22:00 12/31/24 21:46
Pantoprazole 40 Mg Delayed Release Tablet PO 01/28/25 21:59 40 mg
HS VEGA Administration
Polyethylene Glycol 17 grams 12/31/24 19:59
Polyethylene Glycol Powder 17 Grams Packet PO 01/28/25 19:58
DAILYPRN PRN
constipation
Risperidone 1 mg 12/31/24 22:00 12/31/24 21:46
Risperidone 1 Mg Tablet PO 01/28/25 21:59 1 mg
HS VEGA Administration
Senna/Docusate Sodium 1 tablet 12/31/24 19:59
Docusate W/Senna (Olga-Colace) Tablet PO 01/28/25 19:58
BIDPRN PRN
constipation
Sodium Chloride 0 flush 12/31/24 19:00
Sodium Chloride 0.9% (Flush) Syringe IV 01/28/25 18:59
PER PROTOCOL VEGA
Sodium Chloride 0 flush 12/31/24 21:00
Sodium Chloride 0.9% (Flush) Syringe IV 01/28/25 20:59
PER PROTOCOL VEGA
Home Medications
-
Home Medications
escitalopram oxalate 20 mg tablet 20 mg PO DAILY depression/anxiety 04/06/20
pramipexole 1.5 mg tablet,extended release 24 hr (Mirapex ER) 1.5 mg PO QPM parkinson's disease 08/16/24
risperidone 1 mg tablet 1 mg PO HS Mental Health/Anxiety 08/16/24
Lactobac no.2-Bifidobac no.1-S. thermo 112.5 billion cell capsule (Visbiome) 1 cap PO DAILY Supplement 12/31/24
apixaban 5 mg tablet (Eliquis) 5 mg PO BID Blood Clot Prevention/Tx 12/31/24
pantoprazole 40 mg granules delayed-release for susp in packet (Protonix) 40 mg PO HS Gastrointestinal issue 12/31/24
pramipexole 0.375 mg tablet,extended release 24 hr 0.375 mg PO QPM Anti-Parkinson Agent 12/31/24
--- NOTE | 2025-01-01 14:33 | CM ---
Addendum entered by PURA Segovia 01/01/25 14:44:
CAMERON and IMM reviewed with and signed. They are on chart.
Original Note:
Placed a call to patient's to obtain information for assessment. Patient's stated that patient lives with her and their daughter who is an OT in a two story single home with 3 steps to enter. Patient's stated that patient needs
supervision to complete his ADLs, personal care, dressing and bathing. She does the business proposal rep, cooks, cleans and does laundry. She drives patient to his appointments and does all of the shopping. Patient's daughter works during the day but is
home nights and weekends. [facility] for PT, OT and ST. Patient uses a walker to assist with his ambulation, but does have a cane, 2 walkers and a shower chair. He has not had VN services or been to a SNF in the
past.
Patient has a prescription plan and uses, [facility] in [place] for all of his medications.
His PCP is, Sage Ayers.
Ideally patient's would like for patient to return home when stable, with possible VN/continuation or Outpatient services. Will await PT/OT indications.
[2025-01-01 15:00] VITALS: BP 165/78
[2025-01-01] MEDS: LIPITOR 40 MG PO (18:08)
[2025-01-01] MEDS: LOVENOX 40 MG SC (18:08)
[2025-01-01] MEDS: NON-FORMULARY ITEM 0.375 MG PO (18:09)
[2025-01-01] MEDS: NON-FORMULARY ITEM 1.5 MG PO (18:10)
[2025-01-01 19:38] VITALS: BP 128/65
[2025-01-01] MEDS: RISPERDAL 1 MG PO (20:40)
[2025-01-01] MEDS: PROTONIX 40 MG PO (20:40)
[2025-01-01 23:12] VITALS: BP 153/66
[2025-01-02] VITALS (8 sets, daily range): BP systolic 113–170; BP diastolic 50–77; PULSE 69–75; O2SAT 98
--- NOTE | 2025-01-02 04:20 | DOWNTIME ---
Addendum entered by Jory Hanson RN 01/02/25 14:20:
Correction: Downtime was 01/02/2025 from 0100 to 01/02/2025 at 0415
Original Note:
There was a [employer] Client [employer] Lathe Operator Downtime on 01/01/2025 from 0100 to 01/02/2025 at 0415. Downtime documentation of patient's care, including medication administrations, has been reconciled in the electronic record per guidelines. Refer to the
patient's paper chart under the miscellaneous tab to see printed paper medication records and downtime forms.
[2025-01-02 07:23] LABS: Hematocrit 34.8 % (39.0-52.0); Hemoglobin 12.2 g/dL (13.0-18.0); Mean Corp Hgb Conc. 35.1 g/dL (33.0-37.0); Mean Corpuscular Hgb 30.7 pg (27.0-31.0); Mean Corpuscular Volume 87.7 fL (80.0-94.0); Mean Platelet Volume 9.8 fL (7.4-10.4); Platelet Count 193 10^3/uL (130-400); Red Blood Cell Count 3.97 10^6/uL (4.70-6.10); Red Cell Dist. Width 12.6 % (11.5-14.5); White Blood Cell Count 6.7 10^3/uL (4.8-10.8)
[2025-01-02 07:51] LABS: Blood Urea Nitrogen 13 mg/dl (9-20); Carbon Dioxide 24 mmol/L (22-30); Chloride 108 mmol/L (98-107); Estimated Creatinine Clearance 70 ml/min; Glucose 101 mg/dl (70-99); Potassium 3.6 mmol/L (3.5-5.1); Sodium 140 mmol/L (135-145); eGFR > 60.00
[2025-01-02] MEDS: VISBIOME 1 CAP PO (08:54)
[2025-01-02] MEDS: LEXAPRO 20 MG PO (08:54)
[2025-01-02] MEDS: PLAVIX 75 MG PO (08:54)
[2025-01-02] MEDS: LOW STRENGTH ASPIRIN 81 MG PO (08:55)
--- NOTE | 2025-01-02 11:16 | W.PN.HOSP.TC ---
Today's Communication/Plan
-
Cardiology consult for evaluation for Eliquis failure -- as long as neuro exam tomorrow is stable and blood pressure is under control, will start Xarelto tomorrow -- discussed with neurology to monitor patient one more day prior to starting Xarelto
Plan is to keep Aspirin, stop Plavix when starting Xarelto
Continue DAPT and statin for now
Continue modified diet. Speech pathologist Mindy Thomas said that she will call patient's Desiree to update her on the results of the video swallow study
Assessment / Plan
Assessment / Plan
Physical Exam
General: No Apparent Distress and Comfortable
HEENT: NormoCephalic and Moist mucous membranes
Respiratory: Clear
Cardiac: S1/S2 and Regular Rhythm
GI: Soft, Non Tender and Normal Bowel Sounds
Musculoskeletal: No Cyanosis and No Edema
Skin: Warm and Dry
Neuro: Awake, Alert, Oriented to person and place. Cranial Nerves Intact (Except impaired hearing and slight right facial weakness, and dysarthria.) and Other (Severe aphasia -- improved)
Psych: Calm, Confused and Other (Poor insight)
Assessment/Plan
Presentation with worsening speech disturbance -- worse than usual (noticed to become worse on the morning of 12/31/24), acute on chronic dysphagia, some confusion, lethargy and general weakness/imbalance
Acute/Subacute Strokes -- suspected embolic
History of slow speech since stroke
Right PACKAGE LINER stroke (07/2024)
History of moderate L M2 stenosis.
Chronic right PACKAGE LINER, MCA and left caudate nuclear infarcts, moderate R ICA stenosis.
Intracranial atherosclerosis
History of left CEA
History of left caudate stroke (2016)
-Aspiration precautions.
-Avoid cerebral hypoperfusion
-Plavix load given 12/31/24. Continue Aspirin 81 mg daily and continue Plavix at 75 mg daily. Confirmed with neurology DAPT regimen.
-Lipitor 40 mg HS (patient's reported that he has not been taking Atorvastatin at home)
-CTA head and neck: no left ICA restenosis; Moderate narrowing of the proximal M2 branches of the left MCA, at the bifurcation of the left M1 segment
-Brain MRI without contrast: several tiny nonhemorrhagic acute/subacute infarcts within the left centrum semiovale/periventricular region
-Given suspected embolic stroke and the fact patient already on Eliquis, consulted cardiology for their evaluation and recommendations -- switch to a different DOAC
-Outpatient Eliquis failure? -- per cardiology, plan is to transition to Xarelto 20 mg daily once okay with neurology
-Neurology recommended to monitor patient one more day to ensure neuro exam tomorrow is stable prior to starting patient on Xarelto
-Aspiration precautions and modified diet (see below)
-Repeat Video Swallow study slightly worse compared to July 2024 video swallow study -- speech pathologist Mindy Thomas will update patient's family about the video swallow results
-Continue IDDSI level 4 Pureed solids, Thin Liquids with full supervision, assistance as needed, moisten foods well with sauces/gravies, avoid thick purees.
Paroxysmal Atrial Fibrillation on Eliquis outpatient
-Outpatient Eliquis failure? -- patient has been compliant with his Eliquis outpatient since August 2024 -- per cardiology, plan is to transition to Xarelto 20 mg daily once okay with neurology -- await neurology input
-Cardiology recommended continuing Aspirin, stopping Plavix, when starting Xarelto -- will switch to Aspirin and Xarelto tomorrow assuming blood pressure under control
Asymptomatic Bradycardia
-Continue to monitor on tele
Hyperlipidemia
-Continue newly started Atorvastatin 40 mg nightly (patient was not taking it at home, as per patient's )
GERD
-Continue Protonix 40 mg PO HS
Parkinsonism/dementia
-Continue Pramipexole
Vascular Dementia
MDD
-Continue Risperidone
-Continue Escitalopram
Hypertension
- No history of such, but elevated blood pressure noted in the hospital
- Cardiology recommended holding any further antihypertensive for now to allow some permissive hypertensive in the setting of acute CVA
Former Smoker
History of Severe Depression with history of Suicidal Ideations
History of Malignant melanoma
RA
BCC
History of severe lumbar scoliosis and diverticulosis
History of spondylolisthesis
Chronic Neuropathy
Restrictive lung disease
Obstructive sleep apnea on BiPAP
Prior cervical and lumbar surgery
Prior spinal stimulator with subsequent stimulator removal however wires still in place
DVT Prophylaxis: SCDs. Lovenox
Code Status: Full Code
Family Discussions:
Per speech pathologist communication 01/01/25: 'Farzad Nieves [id number] for swallow eval bedside had coughing w/ thin liquids, no s/s with puree but has history of dysphagia and silent aspiration from prior video swallow studies. In past patient/ family
opted to continue diet as he had not been sick w/ PNA. Today he has congested cough. Recommend NPO for now. Options include 1) NPO and repeat video vs 2) resume baseline diet of L5 minced/moist and Thin understanding aspiration complications.
Patient declined repeat video swallow but I don't know he can make that decision at present w/ aphasia and cognitive deficits. Rec further GOC discussion w/ family.'
On 01/01/25, I spoke to patient's daughter Kvng and patient's spouse Desiree. I explained to them the findings of speech therapist and options for feeding. They mentioned that patient wants to eat, for quality of life. They mentioned that he has
chronic aspiration and they have been using strategies to manage aspiration at home and it has been working. I Hudson Texted patient's nurse to coordinate feeding strategies with the family. Family also said they want to make sure no straws which is
very reasonable. Patient's family agreed to continue modified while following aspiration precautions.
Per speech pathologist communication 01/02/25: 'Video swallow study completed for Farzad Nieves. Slightly worse from last known video swallow 07/2024 w/ increased pharyngeal residue and increased aspiration (thin, moderately thick, residue of solids).
Patient w/ sensation of most aspiration and could reduce it w/ throat clearing/coughing. Continue IDDSI level 4 Pureed solids, Thin Liquids with full supervision, assistance as needed, moisten foods well with sauces/gravies, avoid thick purees. Will
f/u with family when present and bring aspiration precaution signs. Meds crushed in applesauce recommended'
Anticipated Discharge: 24 - 48 hours
Subjective/Interval History
-
Date of Service: January 02, 2025
Patient was seen and examined. He reported that he was doing okay, denied any new complaints.
Objective Data
-
Labs:
Laboratory Results
01/02/25
06:33
WBC 6.7
Hgb 12.2 L
Hct 34.8 L
Plt Count 193
Sodium 140
Potassium 3.6
Chloride 108 H
Carbon Dioxide 24
BUN 13
Creatinine 0.9
Glucose 101 H
Calcium 9.0
Vital Signs:
Vital Signs
Temp Pulse Resp BP Pulse Ox
98.3 F 64 18 170/77 98
01/02/25 07:31 01/02/25 07:31 01/02/25 07:31 01/02/25 07:31 01/02/25 07:31
I&O
01/01/25 01/02/25 01/03/25
06:59 06:59 06:59
Intake Total 900 / 900
Output Total 325 / 325 2425 / 2425 300 / 300
Balance -325 / -325 -1525 / -1525 -300 / -300
--- NOTE | 2025-01-02 11:43 | PTOTSP ---
Videofluoroscopic swallow study
Patient presents with mild oral and severe pharyngeal dysphagia. See patient care note for details.
As patient has not had any pulmonary complications from aspiration and per family/patient wishes per discussion with MD 01/01/2025, continue oral diet with strategies below:
1. IDDSI Level 4 Puree (thin down w/ sauce/gravy), IDDSI Level 0 Thin liquids
2. Medications: consider crushed in applesauce
3. Strategies: upright to 90 degrees, small single sips via cup/small single bites, multiple swallows with effort, rest breaks as needed, intermittent cough/swallow, reflux precautions
4. Oral care 3x daily to reduce risk for complications of aspiration
5. Dysphagia tx at the acute care level for instruction in compensations, pharyngeal exercises
--- NOTE | 2025-01-02 11:43 | CON.CAR ---
Addendum entered and electronically signed by Kunal Gonzalez MD 01/02/25 15:28:
I saw and examined the patient.
The Oral Surgery Physician's note was reviewed and I agree with the note.
Comment:
GEN: No distress, awake
HEENT: supple, anicteric, mmm
LUNGS: CTA, no wheezes/rales
CV: Reg, S1/S2, 1/6 syst LSB, no gallop
ABD: soft, BS+, NT/ND
EXT: No edema
NEURO: Awake
SKIN: No rash
Plan:
79-year-old male with past medical history of multiple CVAs, left carotid arterectomy, paroxysmal atrial fibrillation, obstructive sleep apnea, dementia, hypertension, hyperlipidemia, Parkinson's disease, and bradycardia presents with slurred speech
and facial droop and dysphagia. MRI of the brain revealed several tiny acute/subacute infarcts in the left centrum semiovale/periventricular region. After lengthy discussion with the family it appears he was compliant on his Eliquis although this
is not totally clear. We are asked to evaluate him regarding Eliquis failure and changing anticoagulation.
I reviewed his case. It was challenging to assess whether he was truly 100% compliant with the Eliquis. At this point, however I feel it is reasonable to stop the Eliquis and switch to Xarelto. Will stop Eliquis and start Xarelto 20 mg daily.
With his multiple strokes in the past I would also likely continue aspirin 81 mg daily with the Xarelto. While this will assume a slightly higher bleeding risk. He has had multiple vascular events and strokes.
Continue aggressive risk factor modification.
Continue high-dose atorvastatin 40 mg daily. Check lipids.
Would allow some permissive hypertensive in the setting of acute CVA.
Original Note:
Consultation
Consultation Request
Date/Time Consultation Requested: 01/02/2025
Date/Time Consultation Performed: 01/02/2025
Requesting Provider: Dr. Doe
Performing Provider: Mary Hebert PA-C for Dr. Gonzalez
Reason for Consultation: CVA
Medical History
-
Chief Complaint: CVA, suspected cardioembolic source
History of Present Illness:
HPI: Farzad is an 79-year-old male with past medical history of multiple CVAs, prior left carotid endarterectomy, paroxysmal atrial fibrillation, bradycardia, restrictive lung disease, KRISTINE on BiPAP, dyslipidemia, hypertension, dementia, Parkinson's,
dysphagia, melanoma, spondylolisthesis, and former tobacco abuse. He presented to [facility] ER 12/31/2024 for evaluation of slurred speech and facial droop with worsening dysphagia. Given concern for CVA on initial presentation, he was admitted and had
MRI of brain which revealed several tiny acute/subacute infarcts within the left centrum semiovale/periventricular region. There was some question regarding medications at time of admission. Patient was recently admitted 08/2024 with CVA and had
14-day rhythm star monitor which revealed brief episodes of atrial fibrillation for which he was started on Eliquis 5 mg twice daily. Recent outpatient PCP note stated patient was no longer taking Eliquis and was back on aspirin 81 mg daily,
however upon discussion with patient's who helps him with medications, she reports he has been on uninterrupted anticoagulation with Eliquis and denies any missed doses. She states the only medication he has not been taking is his
atorvastatin. Neurologically he is improving today, but daughter who is in OT reports he is not yet back to baseline. Swallow study completed earlier today to reassess dysphagia. Reports no current cardiac complaints. Reviewed ECG from ER and
overall stable, SR with first-degree AV block. Currently he is on aspirin, Plavix, and Lipitor. Cardiology consulted given acute stroke and questionable anticoagulation history.
PMH:
R occipital CVA 08/2024
Prior L caudate CVA in 2017
Left carotid endarterectomy
Paroxysmal atrial fibrillation
Chronic Eliquis AC
Asymptomatic bradycardia
Restrictive lung disease
Obstructive sleep apnea on BiPAP
Dyslipidemia
Hypertension
Severe depression with h/o suicidal ideations
Vascular dementia
Parkinson's disease with gait freezing and difficulty initiating movement
Progressive dysphagia
Malignant melanoma
Former smoker
Chronic neuropathy
h/o spondylolisthesis
Prior cervical and lumbar surgery
Prior spinal stimulator with subsequent stimulator removal however wires still in place
Past Medical History
Past Medical History: Other (In HPI)
Social History
Tobacco: Former Smoker (Quit in 1978)
Alcohol: None
Drug: None
Personal:
Living: With Family
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
Family History
Family History: Reviewed & Not Pertinent
Allergies / Home Medications
Allergy/AdvReac Type Severity Reaction Status Date / Time
No Known Allergies Allergy Verified 04/09/24 09:50
�Medication �Instructions �Recorded �Confirmed �Type
escitalopram oxalate 20 mg tablet 20 mg PO DAILY depression/anxiety 04/06/20 12/31/24 History
pramipexole 1.5 mg tablet,extended 1.5 mg PO QPM parkinson's disease 08/16/24 12/31/24 History
release 24 hr (Mirapex ER)
risperidone 1 mg tablet 1 mg PO HS Mental Health/Anxiety 08/16/24 12/31/24 History
Lactobac no.2-Bifidobac no.1-S. 1 cap PO DAILY Supplement 12/31/24 12/31/24 History
thermo 112.5 billion cell capsule
(Visbiome)
apixaban 5 mg tablet (Eliquis) 5 mg PO BID Blood Clot 12/31/24 12/31/24 History
Prevention/Tx
pantoprazole 40 mg granules 40 mg PO HS Gastrointestinal issue 12/31/24 12/31/24 History
delayed-release for susp in packet
(Protonix)
pramipexole 0.375 mg 0.375 mg PO QPM Anti-Parkinson 12/31/24 12/31/24 History
tablet,extended release 24 hr Agent
Review of Systems
-
History Source: Patient
All other systems: Negative unless noted
Physical Exam
Vital Signs
Temp Pulse Resp BP Pulse Ox
98.5 F 79 20 120/67 90
01/02/25 11:40 01/02/25 11:40 01/02/25 11:40 01/02/25 11:40 01/02/25 11:40
Lab Results
01/02/25 06:33
01/02/25 06:33
Troponin I < 0.012 ng/ml 12/31/24 13:45
Physical Exam
General: Well Developed and No Apparent Distress
HEENT: Normocephalic, Anicteric and Moist Mucous Membranes
Respiratory: Clear and Non Labored Respirations
Cardiac: S1/S2 and Regular Rhythm
Musculoskeletal: No Clubbing, No Cyanosis and No Edema
Skin: Warm and Dry
Neuro: Awake and Alert
Psych: Calm
Impression / Plan
-
PCP: Dr. Ayers
Cardiology: Dr. Watson
Impression:
Presented with dysphagia, R facial droop
Acute/subacute L CVA by MRI 12/31/2024
R occipital CVA 08/2024
Prior L caudate CVA in 2016
Left carotid endarterectomy
Paroxysmal atrial fibrillation
Chronic Eliquis AC
Asymptomatic bradycardia
Restrictive lung disease
Obstructive sleep apnea on BiPAP
Dyslipidemia
Hypertension
Severe depression with h/o suicidal ideations
Vascular dementia
Parkinson's disease with gait freezing and difficulty initiating movement
Progressive dysphagia
Malignant melanoma
Former smoker
Chronic neuropathy
h/o spondylolisthesis
Prior cervical and lumbar surgery
Prior spinal stimulator with subsequent stimulator removal however wires still in place
Echo 09/24/2022: EF 60 to 65%, mild LVH, no significant valvular disease and normal size left atrium and right atrium.
Echo 08/20/2024: EF 66%, mild MR, interatrial septum is intact with no evidence of shunting by color-flow Doppler or by agitated saline, no cardioembolic source seen
RAMESH 08/23/2024: EF 60 to 65%, no left atrial appendage thrombus, mild MR, intact interatrial septum with no shunt by color-flow Doppler, agitated saline contrast bubble study was negative for shunt
Plan:
-Presented with worsening dysphagia, slurred speech, and right facial droop. Found to have multiple tiny acute/subacute infarcts on MRI 12/31/2024. Has history of prior CVA in 2017 and 08/2024.
-Recent outpatient monitor following admission 08/2024 revealed brief episodes of atrial fibrillation for which he was started on anticoagulation with Eliquis 5 mg twice daily.
-There was question regarding compliance with this as recent outpatient PCP note 11/29 had noted patient was no longer taking Eliquis, however reports he has been taking Eliquis 5 mg twice daily since initiation 08/2024.
-Currently on aspirin and Plavix at the direction of neurology.
-As he has been on uninterrupted Eliquis, there is question of Eliquis failure given recurrent stroke, will transition to Xarelto 20mg daily once ok per neurology. May benefit from continuing antiplatelet as well.
- reports he has not been taking atorvastatin. Restarted this admission at 40 mg daily.
-BP stable. Not on antihypertensives as outpatient.
-Continue PT/OT/ST. Swallow study completed earlier today. Await results.
-Will arrange cardiac follow-up.
HPI: Farzad is an 79-year-old male with past medical history of multiple CVAs, prior left carotid endarterectomy, bradycardia, restrictive lung disease, KRISTINE on BiPAP, dyslipidemia, hypertension, dementia, Parkinson's, dysphagia, melanoma,
spondylolisthesis, and former tobacco abuse. He presented to [facility] ER 12/31/2024 for evaluation of slurred speech and facial droop with worsening dysphagia. Given concern for CVA on initial presentation, he was admitted and had MRI of brain which
revealed several tiny acute/subacute infarcts within the left centrum semiovale/periventricular region. There was some question regarding medications at time of admission. Patient was recently admitted 08/2024 with CVA and had 14-day rhythm star
monitor which revealed brief episodes of atrial fibrillation for which he was started on Eliquis 5 mg twice daily. Recent outpatient PCP note stated patient was no longer taking Eliquis and was back on aspirin 81 mg daily, however upon discussion
with patient's who helps him with medications, she reports he has been on uninterrupted anticoagulation with Eliquis and denies any missed doses. She states the only medication he has not been taking is his atorvastatin. Neurologically he is
improving today, but daughter who is in OT reports he is not yet back to baseline. Swallow study completed earlier today to reassess dysphagia. Reports no current cardiac complaints. Reviewed ECG from ER and overall stable, SR with first-degree
AV block. Currently he is on aspirin, Plavix, and Lipitor. Cardiology consulted given acute stroke and questionable anticoagulation history.
Data Reviewed
-
EKG: Tracing Personally Visualized and interpreted
CT Scan: Report Reviewed by me
MRI: Report Reviewed by me
Labs: Labs Reviewed by me
Old Records: Reviewed
[2025-01-02] MEDS: NSS 1000 IV (15:15)
--- NOTE | 2025-01-02 16:00 | CHAP ---
Msgr. Fermin Uribe of [facility] in [place] gave Farzad Astudillo Communion and anointed him.
[2025-01-02] MEDS: LOVENOX 40 MG SC (17:26)
[2025-01-02] MEDS: LIPITOR 40 MG PO (17:27)
[2025-01-02] MEDS: NON-FORMULARY ITEM 1.5 MG PO (17:27)
[2025-01-02] MEDS: NON-FORMULARY ITEM 0.375 MG PO (17:28)
[2025-01-02] MEDS: PROTONIX 40 MG PO (20:12)
[2025-01-02] MEDS: RISPERDAL 1 MG PO (20:12)
[2025-01-03] VITALS (9 sets, daily range): BP systolic 120–184; BP diastolic 58–84; PULSE 60; O2SAT 97
[2025-01-03] MEDS: NSS 1000 IV (04:08)
[2025-01-03] MEDS: LOW STRENGTH ASPIRIN 81 MG PO (07:53)
[2025-01-03] MEDS: VISBIOME 1 CAP PO (07:53)
[2025-01-03] MEDS: LEXAPRO 20 MG PO (07:53)
[2025-01-03 08:23] LABS: Hematocrit 34.5 % (39.0-52.0); Hemoglobin 12.1 g/dL (13.0-18.0); Mean Corp Hgb Conc. 35.1 g/dL (33.0-37.0); Mean Corpuscular Hgb 30.8 pg (27.0-31.0); Mean Corpuscular Volume 87.8 fL (80.0-94.0); Mean Platelet Volume 9.4 fL (7.4-10.4); Platelet Count 174 10^3/uL (130-400); Red Blood Cell Count 3.93 10^6/uL (4.70-6.10); Red Cell Dist. Width 12.4 % (11.5-14.5); White Blood Cell Count 6.5 10^3/uL (4.8-10.8)
[2025-01-03 08:55] LABS: Blood Urea Nitrogen 12 mg/dl (9-20); Calcium 9.1 mg/dl (8.4-10.2); Carbon Dioxide 24 mmol/L (22-30); Chloride 112 mmol/L (98-107); Estimated Creatinine Clearance 70 ml/min; Glucose 96 mg/dl (70-99); Potassium 3.8 mmol/L (3.5-5.1); Sodium 142 mmol/L (135-145); eGFR > 60.00
--- NOTE | 2025-01-03 08:59 | W.PN.CARDCBS ---
Addendum entered and electronically signed by Ivan Turner MD 01/03/25 13:49:
I saw and examined the patient.
The Extruder's note was reviewed and I agree with the note.
Comment: Briefly, 79-year-old man past medical history of atrial fibrillation and prior CVA presenting with dysphagia and facial droop found to have acute/subacute infarcts on MRI of the brain
Patient was maintained on Eliquis as an outpatient
Plan is to transition from Eliquis to Xarelto when safe from a neurology standpoint
High intensity statin added, would continue on discharge
Stable cardiac status, we will sign off, please recall as needed
Original Note:
Today's Communication / Plan
-
Will plan to transition Eliquis to Xarelto once OK per neurology following recurrent CVA
May benefit from continuing antiplatelet as well
Continue lipitor, restarted this admission.
Consider addition of amlodipine for BP control.
Follow up arranged
Impression / Plan
-
PCP: Dr. Ayers
Cardiology: Dr. Watson
Impression:
Presented with dysphagia, R facial droop
Acute/subacute L CVA by MRI 12/31/2024
R occipital CVA 08/2024
Prior L caudate CVA in 2016
Left carotid endarterectomy
Paroxysmal atrial fibrillation
Chronic Eliquis AC
Asymptomatic bradycardia
Restrictive lung disease
Obstructive sleep apnea on BiPAP
Dyslipidemia
Hypertension
Severe depression with h/o suicidal ideations
Vascular dementia
Parkinson's disease with gait freezing and difficulty initiating movement
Progressive dysphagia
Malignant melanoma
Former smoker
Chronic neuropathy
h/o spondylolisthesis
Prior cervical and lumbar surgery
Prior spinal stimulator with subsequent stimulator removal however wires still in place
Echo 09/24/2022: EF 60 to 65%, mild LVH, no significant valvular disease and normal size left atrium and right atrium.
Echo 08/20/2024: EF 66%, mild MR, interatrial septum is intact with no evidence of shunting by color-flow Doppler or by agitated saline, no cardioembolic source seen
RAMESH 08/23/2024: EF 60 to 65%, no left atrial appendage thrombus, mild MR, intact interatrial septum with no shunt by color-flow Doppler, agitated saline contrast bubble study was negative for shunt
Plan:
-Presented with worsening dysphagia, slurred speech, and right facial droop. Found to have multiple tiny acute/subacute infarcts on MRI 12/31/2024. Has history of prior CVA in 2017 and 08/2024.
-Recent outpatient monitor following admission 08/2024 revealed brief episodes of atrial fibrillation for which he was started on anticoagulation with Eliquis 5 mg twice daily.
-There was question regarding compliance with this as recent outpatient PCP note 11/29 had noted patient was no longer taking Eliquis, however reported compliance w/ Eliquis 5 mg twice daily since initiation 08/2024.
-Currently on aspirin and Plavix at the direction of neurology. Given concern for possible Eliquis failure, plan is to transition to Xarelto 20mg daily once ok per neurology. May benefit from continuing aspirin 81 mg daily as well.
-Atorvastatin restarted this admission at 40 mg daily.
-BP elevated today, 01/03. Consider addition of amlodipine 2.5mg daily, has not been on antihypertensives as OP.
-Continue PT/OT/ST.
-Will arrange cardiac follow-up.
HPI: Farzad is an 79-year-old male with past medical history of multiple CVAs, prior left carotid endarterectomy, bradycardia, restrictive lung disease, KRISTINE on BiPAP, dyslipidemia, hypertension, dementia, Parkinson's, dysphagia, melanoma,
spondylolisthesis, and former tobacco abuse. He presented to [facility] ER 12/31/2024 for evaluation of slurred speech and facial droop with worsening dysphagia. Given concern for CVA on initial presentation, he was admitted and had MRI of brain which
revealed several tiny acute/subacute infarcts within the left centrum semiovale/periventricular region. There was some question regarding medications at time of admission. Patient was recently admitted 08/2024 with CVA and had 14-day rhythm star
monitor which revealed brief episodes of atrial fibrillation for which he was started on Eliquis 5 mg twice daily. Recent outpatient PCP note stated patient was no longer taking Eliquis and was back on aspirin 81 mg daily, however upon discussion
with patient's who helps him with medications, she reports he has been on uninterrupted anticoagulation with Eliquis and denies any missed doses. She states the only medication he has not been taking is his atorvastatin. Neurologically he is
improving today, but daughter who is in OT reports he is not yet back to baseline. Swallow study completed earlier today to reassess dysphagia. Reports no current cardiac complaints. Reviewed ECG from ER and overall stable, SR with first-degree
AV block. Currently he is on aspirin, Plavix, and Lipitor. Cardiology consulted given acute stroke and questionable anticoagulation history.
Progress Note - Wreath Inspector
Subjective
Date of Service: January 03, 2025
Offers no complaints this AM.
Objective
Labs:
01/03/25 07:59
01/03/25 07:59
Labs
Hgb 12.1 g/dL (13.0-18.0) L 01/03/25 07:59
Hct 34.5 % (39.0-52.0) L 01/03/25 07:59
Plt Count 174 10^3/uL (130-400) 01/03/25 07:59
PT 14.4 Sec (11.4-14.6) 12/31/24 13:45
INR 1.09 12/31/24 13:45
APTT 32.4 Sec (23.4-35.0) 12/31/24 13:45
Sodium 142 mmol/L (135-145) 01/03/25 07:59
Potassium 3.8 mmol/L (3.5-5.1) 01/03/25 07:59
BUN 12 mg/dl (9-20) 01/03/25 07:59
Creatinine 0.9 mg/dL (0.7-1.3) 01/03/25 07:59
Glucose 96 mg/dl (70-99) 01/03/25 07:59
Troponins
12/31/24
13:45
Troponin I < 0.012
Vital Signs and I&O:
Vital Signs
Temp Pulse Resp BP Pulse Ox
97.9 F 58 18 184/84 99
01/03/25 07:56 01/03/25 07:56 01/03/25 07:56 01/03/25 07:56 01/03/25 07:56
Vital Signs
Temp Pulse Resp BP Pulse Ox
97.9 F 58 18 184/84 99
01/03/25 07:56 01/03/25 07:56 01/03/25 07:56 01/03/25 07:56 01/03/25 07:56
Intake & Output
01/01/25 01/02/25 01/03/25 01/04/25
06:59 06:59 06:59 06:59
Intake Total 900 / 900 480 / 480
Output Total 325 / 325 2425 / 2425 300 / 300
Balance -325 / -325 -1525 / -1525 180 / 180
Physical Exam
Physical Exam
GEN: No distress, awake, alert, sitting up in chair
HEENT: supple, anicteric, mmm
LUNGS: CTA b/l, no wheezes/rales
CV: Reg, S1/S2, no murmur
EXT: No clubbing, cyanosis, or edema
NEURO: Gross non-focal
SKIN: Warm, dry, no rash
[2025-01-03 10:21] LABS: Glucose - Point of Care 191 mg/dl (70-99)
--- NOTE | 2025-01-03 10:37 | W.PN.HOSP.TC ---
Addendum entered and electronically signed by Omid Doe MD 01/03/25 17:36:
Patient's family now wants SNF, according to case management. Case management working on getting auth for SNF.
Original Note:
Today's Communication/Plan
-
Start Xarelto
Discussed patient's case extensively with patient's daughter and . Neurologist and Cardiology team also called today patient's daughter and explained everything and answered all her questions.
Case management working on discharge planning with patient's daughter and .
Assessment / Plan
Assessment / Plan
Physical Exam
General: No Apparent Distress and Comfortable
HEENT: NormoCephalic and Moist mucous membranes
Respiratory: Clear
Cardiac: S1/S2 and Regular Rhythm
GI: Soft, Non Tender and Normal Bowel Sounds
Musculoskeletal: No Cyanosis and No Edema
Skin: Warm and Dry
Neuro: Awake, Alert, Oriented to person and place. Cranial Nerves Intact (Except impaired hearing and slight right facial weakness, and dysarthria) and Other (Severe aphasia -- improved)
Psych: Calm, Confused and Other (Poor insight)
Assessment/Plan
Presentation with worsening speech disturbance -- worse than usual (noticed to become worse on the morning of 12/31/24), acute on chronic dysphagia, some confusion, lethargy and general weakness/imbalance
Acute/Subacute Strokes -- suspected embolic
History of slow speech since stroke
Right SYSTEMS CHECKOUT MECHANIC stroke (07/2024)
History of moderate L M2 stenosis.
Chronic right SYSTEMS CHECKOUT MECHANIC, MCA and left caudate nuclear infarcts
Moderate Right ICA stenosis.
Intracranial atherosclerosis (Left M2, Left V4)
History of left CEA
History of left caudate stroke (2016)
-Avoid cerebral hypoperfusion
-Plavix load given 12/31/24. Status post DAPT. Now on Xarelto only (see below).
-Lipitor 40 mg HS (patient's reported that he has not been taking Atorvastatin at home)
-CTA head and neck: no left ICA restenosis; Moderate narrowing of the proximal M2 branches of the left MCA, at the bifurcation of the left M1 segment
-Brain MRI without contrast: several tiny nonhemorrhagic acute/subacute infarcts within the left centrum semiovale/periventricular region
-Given suspected embolic stroke and the fact patient already on Eliquis (concern for Eliquis failure), consulted cardiology for their evaluation and recommendations -- switch to a different DOAC: Xarelto
-Hospitalist and Cardiology team on 01/03/25 spoke with the patient's and daughter and explained reasoning behind Xarelto and they�re (patient's daughter and ) are all in agreement.
-I spoke with neurologist Dr. Whitney and she recommended monotherapy with Xarelto alone (no antiplatelet medications) due to bleeding risks. Addition of Aspirin can be considered by cardiology and neurology outpatient.
-Aspiration precautions and modified diet (see below)
-Repeat Video Swallow study slightly worse compared to July 2024 video swallow study -- speech pathologist Mindy Thomas will update patient's family about the video swallow results
-Continue IDDSI level 4 Pureed solids, Thin Liquids with full supervision, assistance as needed, moisten foods well with sauces/gravies, avoid thick purees.
Paroxysmal Atrial Fibrillation on Eliquis outpatient
-Outpatient Eliquis failure? -- patient has been compliant with his Eliquis outpatient since August 2024 -- per cardiology and neurology, okay transition to Xarelto 20 mg daily tonight
-Cardiology recommended continuing Aspirin, stopping Plavix, when starting Xarelto -- will switch to Aspirin and Xarelto tomorrow assuming blood pressure under control
Asymptomatic Bradycardia
-Continue to monitor on tele
Hyperlipidemia
-Continue newly started Atorvastatin 40 mg nightly (patient was not taking it at home, as per patient's )
GERD
-Continue Protonix 40 mg PO HS
Parkinsonism/dementia
-Continue Pramipexole
Vascular Dementia
MDD
-Continue Risperidone
-Continue Escitalopram
Hypertension
- No history of such, but elevated blood pressure noted in the hospital
- I discussed via [place] Text on 01/03/25 with cardiology, given patient's SBP range in the past 24 hours has been 113 to 184 (the 180s was one episode) it is safer to hold off on antihypertensives until patient follows up with
outpatient physicians
Former Smoker
History of Severe Depression with history of Suicidal Ideations
History of Malignant melanoma
RA
BCC
History of severe lumbar scoliosis and diverticulosis
History of spondylolisthesis
Chronic Neuropathy
Restrictive lung disease
Obstructive sleep apnea on BiPAP
Prior cervical and lumbar surgery
Prior spinal stimulator with subsequent stimulator removal however wires still in place
DVT Prophylaxis: SCDs. Lovenox
Code Status: Full Code
Family Discussions:
Per speech pathologist communication 01/01/25: 'Farzad Nieves [id number] for swallow eval bedside had coughing w/ thin liquids, no s/s with puree but has history of dysphagia and silent aspiration from prior video swallow studies. In past patient/ family
opted to continue diet as he had not been sick w/ PNA. Today he has congested cough. Recommend NPO for now. Options include 1) NPO and repeat video vs 2) resume baseline diet of L5 minced/moist and Thin understanding aspiration complications.
Patient declined repeat video swallow but I don't know he can make that decision at present w/ aphasia and cognitive deficits. Rec further GOC discussion w/ family.'
On 01/01/25, I spoke to patient's daughter Kvng and patient's spouse Desiree. I explained to them the findings of speech therapist and options for feeding. They mentioned that patient wants to eat, for quality of life. They mentioned that he has
chronic aspiration and they have been using strategies to manage aspiration at home and it has been working. I [place] Texted patient's nurse to coordinate feeding strategies with the family. Family also said they want to make sure no straws which is
very reasonable. Patient's family agreed to continue modified while following aspiration precautions.
Per speech pathologist communication 01/02/25: 'Video swallow study completed for Farzad Nieves. Slightly worse from last known video swallow 07/2024 w/ increased pharyngeal residue and increased aspiration (thin, moderately thick, residue of solids).
Patient w/ sensation of most aspiration and could reduce it w/ throat clearing/coughing. Continue IDDSI level 4 Pureed solids, Thin Liquids with full supervision, assistance as needed, moisten foods well with sauces/gravies, avoid thick purees. Will
f/u with family when present and bring aspiration precaution signs. Meds crushed in applesauce recommended'
On 01/03/25, I spoke extensively to patient's Desiree and patient's daughter Kvng and I answered all of their questions and concerns to satisfaction -- Kvng is concerned about his functional capacity and ability to return home and complete
outpatient therapy. Will address this with case management.
Anticipated Discharge: Within 24 hours
Subjective/Interval History
-
Date of Service: January 03, 2025
Patient was seen and examined. He was in a great mood and denied any new symptoms or complaints.
Objective Data
-
Labs:
Laboratory Results
01/03/25
07:59
WBC 6.5
Hgb 12.1 L
Hct 34.5 L
Plt Count 174
Sodium 142
Potassium 3.8
Chloride 112 H
Carbon Dioxide 24
BUN 12
Creatinine 0.9
Glucose 96
Calcium 9.1
Vital Signs:
Vital Signs
Temp Pulse Resp BP Pulse Ox
97.9 F 66 18 120/64 99
01/03/25 07:56 01/03/25 09:27 01/03/25 07:56 01/03/25 09:27 01/03/25 09:32
I&O
01/02/25 01/03/25 01/04/25
06:59 06:59 06:59
Intake Total 900 / 900 480 / 480 240 / 240
Output Total 2425 / 2425 300 / 300
Balance -1525 / -1525 180 / 180 240 / 240
--- NOTE | 2025-01-03 10:37 | RR ---
A Rapid Response was called on this patient, please see Rapid Response form.
This RN noted pt to be more aphasic with R sided facial droop and R leg drift. Change from this morning NIH. Stroke alert and Rapid response called. BS 191. BP 103/55, HR 65. Neurology at bedside noted no new symptoms. No further imaging ordered at
this time.
--- NOTE | 2025-01-03 12:33 | W.PN.NEURO.1 ---
Today's Communication / Plan
-
.
Subjective/Objective
Subjective Data
Date of Service: January 03, 2025
Stroke alert: called in 10:18 am
Neurology follow-up note
Stroke alert was initiated due to the reduced fluency. Mr. Nieves reports no complaints. He denies having headache, new motor or sensory visual deficits.
Review of vital signs was notable for intermittent bradycardia, and prolonged blood pressure from 184/84-120/64 prior to stroke alert initiation.
Brain MRI wo peg (12/31/2024)several tiny nonhemorrhagic acute/subacute infarcts within the left centrum semiovale/periventricular region.
CTA head/neck-no left ICA restenosis; Moderate narrowing of the proximal M2 branches of the left MCA, at the bifurcation of the left M1 segment.
PMH: R PHYSICIAN INTERVENTIONAL CARDIOLOGIST stroke(07/2024), left caudate stroke(2016), DLP, GERD, Parkinsonism/dementia, MDD, history of SI, Malignant melanoma , RA, BCC, h/o severe lumbar scoliosis, diverticulosis
PSH: L CEA, cervical fusion C5,C6, Spinal fusion L5,S1, bilateral cataract surgery, Left inguinal herniorrhaphy, Umbilical hernia repair, spinal stimulator(removed)
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
All: NKDA
ROS: Negative for fever.
Gastrointestinal: positive for worsening of chronic dysphagia
Genitourinary: Positive for urinary incontinence
Skin: Negative for rash.
Neurological: Negative for headache, change in strength or vision.
General: Well developed. In no acute distress.
Cardio: Regular rate and rhythm without murmur. Extremities are without cyanosis or edema.
Neuro:
Mental Status: Alert, oriented to name, age, hospital only. Increased processing time. Mild expressive aphasia. No hemineglect
Cranial Nerves: Pupils are equally round, surgical. EOMs full. Visual fernandez full to confrontation. Mild right facial weakness. No ptosis. No nystagmus. Impaired hearing AU. The palate elevated well. SCMs and traps 5/5. Tongue midline. Mild
dysarthria
Motor: No pronator or leg drift. All limbs are antigravity
Reflexes: Bilateral grasp
Coordination: No dysmetria or tremor.
Gait: deferred
Assessment and Plan:
I. Acute L ACh and lateral lenticulostriate arteries strokes, likely embolic. Clinically stable.
II. Chronic right PHYSICIAN INTERVENTIONAL CARDIOLOGIST, MCA and left caudate nuclear infarcts, moderate R ICA stenosis. ESUS.
III. Intracranial/extracranial atherosclerosis (Left M2, Left V4). H/o L CEA.
IV. History of malignant melanoma
V. Vascular parkinsonism/dementia
-Avoid cerebral hypoperfusion
-Please obtain orthostatic vital signs
-Utilize compressive stockings
-Continuing Xarelto for secondary stroke prophylaxis
-Lipitor 40 mg nightly
-PT, Speech therapy
-Case was discussed with patient's daughter. All questions were answered
- Please recall neurology services any questions or concerns
I personally reviewed all radiology and labs along with past medical records pertinent to current medical problems. Total time spent in patient care is 35 minutes.
Thank you for allowing us to participate in the care of this patient. Please do not hesitate to contact us with any questions or concerns.
Objective Data
Vital Signs
Temp Pulse Resp BP Pulse Ox
36.8 C 60 18 129/58 96
01/03/25 11:47 01/03/25 11:47 01/03/25 11:47 01/03/25 11:47 01/03/25 11:47
Lab Results
01/03/25 07:59
01/03/25 07:59
PT 14.4 Sec (11.4-14.6) 12/31/24 13:45
INR 1.09 12/31/24 13:45
APTT 32.4 Sec (23.4-35.0) 12/31/24 13:45
Sodium 142 mmol/L (135-145) 01/03/25 07:59
Potassium 3.8 mmol/L (3.5-5.1) 01/03/25 07:59
BUN 12 mg/dl (9-20) 01/03/25 07:59
Glucose 96 mg/dl (70-99) 01/03/25 07:59
Calcium 9.1 mg/dl (8.4-10.2) 01/03/25 07:59
Vitamin B12 472 pg/ml (831-629) 01/01/25 06:41
Patient Allergies
No Known Allergies Allergy (Verified 04/09/24 09:50)
Vital Signs and Labs
-
Vital Signs and Labs:
Vital Signs
Temp Pulse Resp BP Pulse Ox
36.8 C 60 18 129/58 96
01/03/25 11:47 01/03/25 11:47 01/03/25 11:47 01/03/25 11:47 01/03/25 11:47
Lab Results
01/03/25 07:59
01/03/25 07:59
PT 14.4 Sec (11.4-14.6) 12/31/24 13:45
INR 1.09 12/31/24 13:45
APTT 32.4 Sec (23.4-35.0) 12/31/24 13:45
Sodium 142 mmol/L (135-145) 01/03/25 07:59
Potassium 3.8 mmol/L (3.5-5.1) 01/03/25 07:59
BUN 12 mg/dl (9-20) 01/03/25 07:59
Glucose 96 mg/dl (70-99) 01/03/25 07:59
Calcium 9.1 mg/dl (8.4-10.2) 01/03/25 07:59
Vitamin B12 472 pg/ml (417-931) 01/01/25 06:41
Medications
-
Medications:
Generic Name Dose Route Start Last Admin
Trade Name Freq PRN Reason Stop Dose Admin
Aspirin 81 mg 12/31/24 18:50 01/03/25 07:53
Aspirin 81 Mg Chewable Tablet PO 01/28/25 18:49 81 mg
DAILY VEGA Administration
Atorvastatin Calcium 40 mg 12/31/24 19:00 01/02/25 17:27
Atorvastatin (Lipitor) 40 Mg Tablet PO 01/28/25 18:59 40 mg
QPM VEGA Administration
Bisacodyl 10 mg 12/31/24 19:59
Bisacodyl 10 Mg Rectal Suppository RECTAL 01/28/25 19:58
[id number] PRN
constipation
Clopidogrel Bisulfate 75 mg 01/01/25 08:00 01/02/25 08:54
Clopidogrel 75 Mg Tablet PO 01/29/25 07:59 75 mg
On Hold: 01/02/25 15:52 DAILY VEGA Administration
Enoxaparin Sodium 40 mg 12/31/24 19:59 01/02/25 17:26
Enoxaparin Sodium 40 Mg/0.4 Ml Syringe SC 01/28/25 19:58 40 mg
QPM VEGA Administration
Escitalopram Oxalate 20 mg 01/01/25 08:00 01/03/25 07:53
Escitalopram 20 Mg Tablet PO 01/29/25 07:59 20 mg
DAILY VEGA Administration
Lactobacillus/Bifidobacterium 1 cap 01/01/25 08:00 01/03/25 07:53
Lactobac/Bifidobac (Visbiome) PO 01/29/25 07:59 1 cap
DAILY VEGA Administration
Pramipexole 0.375 Mg 0 mg 12/31/24 19:59 01/02/25 17:28
Er Po Qpm PO 01/28/25 19:58 0.375 mg
QPM VEGA Administration
Pramipexole [Mirapex 0 mg 12/31/24 19:59 01/02/25 17:27
Er] 1.5 Mg Er Po PO 01/28/25 19:58 1.5 mg
Qpm QPM VEGA Administration
Pantoprazole Sodium 40 mg 12/31/24 22:00 01/02/25 20:12
Pantoprazole 40 Mg Delayed Release Tablet PO 01/28/25 21:59 40 mg
HS VEGA Administration
Polyethylene Glycol 17 grams 12/31/24 19:59
Polyethylene Glycol Powder 17 Grams Packet PO 01/28/25 19:58
DAILYPRN PRN
constipation
Risperidone 1 mg 12/31/24 22:00 01/02/25 20:12
Risperidone 1 Mg Tablet PO 01/28/25 21:59 1 mg
HS VEGA Administration
Senna/Docusate Sodium 1 tablet 12/31/24 19:59
Docusate W/Senna (Olga-Colace) Tablet PO 01/28/25 19:58
BIDPRN PRN
constipation
Sodium Chloride 0 flush 12/31/24 19:00
Sodium Chloride 0.9% (Flush) Syringe IV 01/28/25 18:59
PER PROTOCOL VEGA
Sodium Chloride 0 flush 12/31/24 21:00
Sodium Chloride 0.9% (Flush) Syringe IV 01/28/25 20:59
PER PROTOCOL VEGA
Home Medications
-
Home Medications
escitalopram oxalate 20 mg tablet 20 mg PO DAILY depression/anxiety 04/06/20
pramipexole 1.5 mg tablet,extended release 24 hr (Mirapex ER) 1.5 mg PO QPM parkinson's disease 08/16/24
risperidone 1 mg tablet 1 mg PO HS Mental Health/Anxiety 08/16/24
Lactobac no.2-Bifidobac no.1-S. thermo 112.5 billion cell capsule (Visbiome) 1 cap PO DAILY Supplement 12/31/24
apixaban 5 mg tablet (Eliquis) 5 mg PO BID Blood Clot Prevention/Tx 12/31/24
pantoprazole 40 mg granules delayed-release for susp in packet (Protonix) 40 mg PO HS Gastrointestinal issue 12/31/24
pramipexole 0.375 mg tablet,extended release 24 hr 0.375 mg PO QPM Anti-Parkinson Agent 12/31/24
--- NOTE | 2025-01-03 16:57 | CM ---
Spoke with attending who stated that he was speaking with patient's and daughter and they had questions for CM regarding VN services. Met with patient, his and daughter who were at bedside to discuss concerns. Patient's daughter Isis
stated that she doesn't feel safe with patient going directly home as his is not equipped to care for the scope of his needs. Patient's daughter stated that no one from therapy has evaluated patient. Spoke with PT who confirmed that they did
see patient and he ambulated 150 ft and was a supervision level for everything. Their indication is for VN/home health care.
Patient's daughter left room. Patient's stated that even though he did well in therapy she would still feel safer if he went to a SNF. Patient's was made aware that insurance would have to approve the request and she expressed
understanding.
Patient's stated that she would like for referrals to be sent to [facility] and [facility] with [facility] being her first choice. Will make referrals.
RN and PT updated. Will update attending. Patient's stated that if insurance doesn't cover his stay, then she will take him home with VN services.
Plan: Case management will continue to follow and assist with discharge planning. Home with VN services vrs. SNF.
[2025-01-03] MEDS: XARELTO 20 MG PO (17:52)
[2025-01-03] MEDS: LIPITOR 40 MG PO (17:52)
[2025-01-03] MEDS: NON-FORMULARY ITEM 0.375 MG PO (17:53)
[2025-01-03] MEDS: NON-FORMULARY ITEM 1.5 MG PO (17:54)
[2025-01-03] MEDS: RISPERDAL 1 MG PO (20:28)
[2025-01-03] MEDS: PROTONIX 40 MG PO (20:29)
[2025-01-04 03:15] VITALS: BP 133/70
[2025-01-04 07:00] VITALS: BP 162/84
[2025-01-04 08:03] LABS: Hematocrit 33.5 % (39.0-52.0); Hemoglobin 11.7 g/dL (13.0-18.0); Mean Corp Hgb Conc. 34.9 g/dL (33.0-37.0); Mean Corpuscular Hgb 30.7 pg (27.0-31.0); Mean Corpuscular Volume 87.9 fL (80.0-94.0); Mean Platelet Volume 9.7 fL (7.4-10.4); Platelet Count 182 10^3/uL (130-400); Red Blood Cell Count 3.81 10^6/uL (4.70-6.10); Red Cell Dist. Width 12.8 % (11.5-14.5); White Blood Cell Count 9.7 10^3/uL (4.8-10.8)
[2025-01-04] MEDS: LEXAPRO 20 MG PO (08:34)
[2025-01-04] MEDS: VISBIOME 1 CAP PO (08:34)
[2025-01-04 08:42] LABS: Blood Urea Nitrogen 15 mg/dl (9-20); Calcium 9.1 mg/dl (8.4-10.2); Carbon Dioxide 27 mmol/L (22-30); Chloride 109 mmol/L (98-107); Estimated Creatinine Clearance 70 ml/min; Glucose 94 mg/dl (70-99); Potassium 3.6 mmol/L (3.5-5.1); Sodium 142 mmol/L (135-145); eGFR > 60.00
[2025-01-04 09:10] VITALS: BP 135/58; BP 143/76; PULSE 65; O2SAT 95
--- NOTE | 2025-01-04 10:30 | PTOTSP ---
Speech Language Pathology
Pt seen for dysphagia tx. present at bedside. Seen for speech/language tx. Pt with mod-severe dysarthria and mod-severe expressive and receptive aphasia. Minimal verbalizations noted. Pt generally with no response to direct questions.
Shook head yes/no at times, but not consistently accurate.
Pt also seen for dysphagia tx. Constant labial leakage of saliva noted from R. Breakfast tray at bedside. Reviewed results from VSE. reported that pt has not been eating/drinking much. Seen with bite of egg and sip of OJ with instruction
for effortful swallow for completion of exercise. With both trials, incoordinated bolus formation and A-P transit noted with immediate weak gurgling cough. Cough was ineffective.
Highly suspect significant aspiration, which appears worsened from VSE completed 01/02. Pt is at a high risk for aspiration and aspiration related consequences/airway obstruction/choking. agreed that she is worried 'he will from choking.'
Discussed options if NPO. Would not recommend DHT given baseline significant dysphagia.
Pt's speech, aphasia, and swallowing have worsened since admission. in agreement. RN and MD notified.
Recommend:
(1) NPO
(2) GOC discussion
(3) Oral care 4x/day with suctioning as needed
(4) Hold on ARHP for now
(5) Non-oral meds
(6) RETAIL CASHIER to continue to follow
[2025-01-04 11:00] VITALS: BP 111/57
[2025-01-04 11:15] VITALS: BP 143/76; O2SAT 97
--- NOTE | 2025-01-04 12:38 | HOSPNOTE ---
Spoke with spouse and explained hospice and the philosophy. The patient will be admitted inpatient hospice for shortness of breath and agitation. Spoke with attending and all in agreement with hospice. Consents are signed. CM updated with plan.
Floor RN updated.
--- NOTE | 2025-01-04 13:12 | W.PN.HOSP.TC ---
Today's Communication/Plan
-
Had goals of care discussion with patient's family in the setting of severely worsening dysphagia and aspiration
Will transition to comfort care/hospice today/tomorrow
Assessment / Plan
Assessment / Plan
Physical Exam
General: Not in acute distress
HEENT: Normocephalic and Moist mucous membranes
Respiratory: Clear to Auscultation Bilaterally
Cardiac: S1/S2 and Regular Rhythm
GI: Soft, Non Tender and Normal Bowel Sounds
Musculoskeletal: No Cyanosis and No Edema
Skin: Warm and Dry
Neuro: Awake, Alert, Oriented to person and date. Cranial Nerves Intact (Except impaired hearing and slight right facial weakness, and dysarthria) and Other (Severe aphasia -- improved)
Psych: Calm, Confused and Other (Poor insight)
Assessment/Plan
Presentation with worsening speech disturbance -- worse than usual (noticed to become worse on the morning of 12/31/24), acute on chronic dysphagia, some confusion, lethargy and general weakness/imbalance
Acute/Subacute Strokes -- suspected embolic
History of slow speech since stroke
Right BAG MENDER stroke (07/2024)
History of moderate L M2 stenosis.
Chronic right BAG MENDER, MCA and left caudate nuclear infarcts
Moderate Right ICA stenosis.
Intracranial atherosclerosis (Left M2, Left V4)
History of left CEA
History of left caudate stroke (2016)
-Avoid cerebral hypoperfusion
-Plavix load given 12/31/24. Status post DAPT. Now on Xarelto only (see below).
-Lipitor 40 mg HS (patient's reported that he has not been taking Atorvastatin at home)
-CTA head and neck: no left ICA restenosis; Moderate narrowing of the proximal M2 branches of the left MCA, at the bifurcation of the left M1 segment
-Brain MRI without contrast: several tiny nonhemorrhagic acute/subacute infarcts within the left centrum semiovale/periventricular region
-Given suspected embolic stroke and the fact patient already on Eliquis (concern for Eliquis failure), consulted cardiology for their evaluation and recommendations -- switch to a different DOAC: Xarelto
-Hospitalist and Cardiology team on 01/03/25 spoke with the patient's and daughter and explained reasoning behind Xarelto and they�re (patient's daughter and ) are all in agreement.
-I spoke with neurologist Dr. Whitney and she recommended monotherapy with Xarelto alone (no antiplatelet medications) due to bleeding risks. Addition of Aspirin can be considered by cardiology and neurology outpatient.
-Aspiration precautions and modified diet (see below)
-Repeat Video Swallow study slightly worse compared to July 2024 video swallow study -- speech pathologist Mindy Thomas will update patient's family about the video swallow results
-01/04/25 UPDATE: I discussed patient's case with speech pathologist Adela Jerez who stated via Julia[facility] Text communication that patient based on her assessment is an extremely high risk for aspiration and true airway obstruction/choking; Adela
recommended against a Dobhoff Tube, and options would be PEG tube versus comfort feeding. Also on 01/04/25, I called both patient's Genie and patient's daughter Kvng who both understood that patient has a poor prognosis with vascular
dementia, and that the most appropriate management going forward would be hospice/comfort care. I consulted hospice nurse and case packer to discuss hospice with Genie and Kvng, with the expectation of starting hospice/comfort care soon. In the
meantime, I confirmed with Genie and Kvng that we will not give any of his oral medications (patient is very unsafe for any oral intake), we will not do further evaluation e.g. CT Head, we will do intravenous fluids for now, and change patient's
code status to both DNR and DNI -- Genie and Kvng agreed with this management plan.
Paroxysmal Atrial Fibrillation on Eliquis outpatient
-Outpatient Eliquis failure? -- patient has been compliant with his Eliquis outpatient since August 2024 -- per cardiology and neurology, okay transition to Xarelto 20 mg daily tonight
-Cardiology recommended continuing Aspirin, stopping Plavix, when starting Xarelto -- will switch to Aspirin and Xarelto tomorrow assuming blood pressure under control
Asymptomatic Bradycardia
-Continue to monitor on tele
Hyperlipidemia
-Continue newly started Atorvastatin 40 mg nightly (patient was not taking it at home, as per patient's )
GERD
-Continue Protonix 40 mg PO HS
Parkinsonism/dementia
-Continue Pramipexole
Vascular Dementia
MDD
-Continue Risperidone
-Continue Escitalopram
Hypertension
- No history of such, but elevated blood pressure noted in the hospital
- I discussed via Juliaetta Text on 01/03/25 with cardiology, given patient's SBP range in the past 24 hours has been 113 to 184 (the 180s was one episode) it is safer to hold off on antihypertensives until patient follows up with
outpatient physicians
Former Smoker
History of Severe Depression with history of Suicidal Ideations
History of Malignant melanoma
RA
BCC
History of severe lumbar scoliosis and diverticulosis
History of spondylolisthesis
Chronic Neuropathy
Restrictive lung disease
Obstructive sleep apnea on BiPAP
Prior cervical and lumbar surgery
Prior spinal stimulator with subsequent stimulator removal however wires still in place
DVT Prophylaxis: SCDs. Lovenox
Code Status: DNR and DNI
Family Discussions:
Per speech pathologist communication 01/01/25: 'Farzad Nieves [id number] for swallow eval bedside had coughing w/ thin liquids, no s/s with puree but has history of dysphagia and silent aspiration from prior video swallow studies. In past patient/ family
opted to continue diet as he had not been sick w/ PNA. Today he has congested cough. Recommend NPO for now. Options include 1) NPO and repeat video vs 2) resume baseline diet of L5 minced/moist and Thin understanding aspiration complications.
Patient declined repeat video swallow but I don't know he can make that decision at present w/ aphasia and cognitive deficits. Rec further GOC discussion w/ family.'
On 01/01/25, I spoke to patient's daughter Kvng and patient's spouse Desiree. I explained to them the findings of speech therapist and options for feeding. They mentioned that patient wants to eat, for quality of life. They mentioned that he has
chronic aspiration and they have been using strategies to manage aspiration at home and it has been working. I Juliaetta Texted patient's nurse to coordinate feeding strategies with the family. Family also said they want to make sure no straws which is
very reasonable. Patient's family agreed to continue modified while following aspiration precautions.
Per speech pathologist communication 01/02/25: 'Video swallow study completed for Farzad Nieves. Slightly worse from last known video swallow 07/2024 w/ increased pharyngeal residue and increased aspiration (thin, moderately thick, residue of solids).
Patient w/ sensation of most aspiration and could reduce it w/ throat clearing/coughing. Continue IDDSI level 4 Pureed solids, Thin Liquids with full supervision, assistance as needed, moisten foods well with sauces/gravies, avoid thick purees. Will
f/u with family when present and bring aspiration precaution signs. Meds crushed in applesauce recommended'
On 01/03/25, I spoke extensively to patient's Desiree and patient's daughter Kvng and I answered all of their questions and concerns to satisfaction -- Kvng is concerned about his functional capacity and ability to return home and complete
outpatient therapy. Will address this with case management.
On 01/04/25, I spoke (over the phone) extensively to patient's Desiree and patient's daughter Kvng. We discussed patient's poor prognosis with vascular dementia, progressively worsening aspiration and dysphagia, and that the most appropriate
management going forward would be hospice/comfort care. I consulted hospice nurse and case packer to discuss hospice with Genie and Kvng, with the expectation of starting hospice/comfort care soon. In the meantime, I confirmed with Genie and
Kvng that we will not give any of his oral medications (patient is very unsafe for any oral intake), we will not do further evaluation e.g. CT Head, we will do intravenous fluids for now, and change patient's code status to both DNR and DNI --
Genie and Kvng agreed with this management plan. Genie and Kvng both said patient should be DNR and DNI in this case. The expectation will be to transition to Comfort Care/Hospice today or tomorrow.
Anticipated Discharge: > 48 hours
Subjective/Interval History
-
Date of Service: January 04, 2025
Patient was seen and examined. He appeared to be doing worse today, especially with regards to his swallowing.
Objective Data
-
Labs:
Laboratory Results
01/04/25
07:19
WBC 9.7
Hgb 11.7 L
Hct 33.5 L
Plt Count 182
Sodium 142
Potassium 3.6
Chloride 109 H
Carbon Dioxide 27
BUN 15
Creatinine 0.9
Glucose 94
Calcium 9.1
Vital Signs:
Vital Signs
Temp Pulse Resp BP Pulse Ox
97.8 F 64 16 162/84 98
01/04/25 07:00 01/04/25 07:00 01/04/25 07:00 01/04/25 07:00 01/04/25 08:40
I&O
01/03/25 01/04/25 01/05/25
06:59 06:59 06:59
Intake Total 480 / 480 480 / 480
Output Total 300 / 300
Balance 180 / 180 480 / 480
--- NOTE | 2025-01-04 14:03 | W.DCSUMMARY ---
Discharge Summary
Discharge Data
Date of Admission: 12/31/24
Date of Discharge: 01/04/25
Total time spent discharging patient (in min): 42
-
Pending Results: No
Hospital Course
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
diverticulosis, presented with worsening speech disturbance -- worse than usual (noticed to become worse on the morning of presentation), increased difficulty swallowing on top of his chronic dysphagia, some confusion, lethargy and general weakness.
Patient was started on high intensity statin, as well as dual antiplatelet therapy. Neurology was consulted. CT Head and Brain MRI was performed which showed several tiny nonhemorrhagic acute/subacute infarcts within the left centrum
semiovale/periventricular region. Cardiology was consulted given suspected embolic stroke and concern for Eliquis failure. Plan was for Eliquis to be switched to Xarelto, which was started a few days after stroke. Aspirin and Plavix were
discontinued at the recommendation of neurology and cardiology. Patient's Video Swallow Study was worse from prior, but after discussion with family his diet was continued. However, on 01/04/25, speech pathologist re-evaluated patient and mentioned
that is was very unsafe for patient to have any oral intake. Therefore, patient's condition was discussed with patient's Genie and patient's daughter Kvng, and in the setting of patient's worsening aspiration and dysphagia in the setting of
history of strokes and new strokes this hospitalization, decision was made together with Genie and Kvng to transition patient to hospice.
Discharge Plan
-
Patient Disposition: Hospice - Inpatient DH
Discharge Orders:
Discharge Patient (As Directed); Ordered 01/04/25
Ordered By: Omid Doe
Discharge Date and Time
Print Language: YORUBA
[2025-01-04 15:41] VITALS: BP 142/69
--- NOTE | 2025-01-04 15:41 | PTCARENOTE ---
Addendum entered by Nina Magaña RN 01/04/25 16:01:
Received patient this am AAOx1. Pt took am medication in applesauce. Pt has a moist NPC. Aspiration Risk. Pt seen by speech therapy this am. Pt Aspiration Risk. Pt's family spoke to and hospice nurse. Pt placed on hospice. Report called to @
[place] and patient transferred this afternoon. Cont to assess patient status.
Original Note:
Received patient this am AAOx1. Pt took am medication in applesauce. pt dottie madrid
== END 2025-01-04 15:55 | disposition hospice, inpatient (51) | DRG 65 ==
LOC: 2 NORTH 12:06
PROVIDERS: ADMITTING PHYSICIAN Hospitalist; CONSULT PHYSICIAN Internal Medicine Cardiovascular Disease; CONSULT PHYSICIAN Psychiatry & Neurology Neurology; EMERGENCY PHYSICIAN Emergency Medicine; FAMILY PHYSICIAN Internal Medicine
DX: I63.40 Cerebral infarction due to embolism of unspecified cerebral artery (principal); F01.53 Vascular dementia, unspecified severity, with mood disturbance; F01.54 Vascular dementia, unspecified severity, with anxiety; F02.83 Dementia in other diseases classified elsewhere, unspecified severity, with mood disturbance; F02.84 Dementia in other diseases classified elsewhere, unspecified severity, with anxiety; R47.1 Dysarthria and anarthria; R13.10 Dysphagia, unspecified; I48.0 Paroxysmal atrial fibrillation; Z79.01 Long term (current) use of anticoagulants; E78.00 Pure hypercholesterolemia, unspecified; K21.9 Gastro-esophageal reflux disease without esophagitis; F32.9 Major depressive disorder, single episode, unspecified; Z87.891 Personal history of nicotine dependence; I10 Essential (primary) hypertension; Z85.828 Personal history of other malignant neoplasm of skin; M41.9 Scoliosis, unspecified; G62.9 Polyneuropathy, unspecified; J98.4 Other disorders of lung; G47.33 Obstructive sleep apnea (adult) (pediatric); Z66 Do not resuscitate; Z98.1 Arthrodesis status; Z79.02 Long term (current) use of antithrombotics/antiplatelets; Z79.82 Long term (current) use of aspirin; Z79.899 Other long term (current) drug therapy; Z85.820 Personal history of malignant melanoma of skin; G20.A1 Parkinson's disease without dyskinesia, without mention of fluctuations; I44.0 Atrioventricular block, first degree; N40.0 Benign prostatic hyperplasia without lower urinary tract symptoms; R29.810 Facial weakness; R47.01 Aphasia
CPT/HCPCS: 0042T; 70450; 70496; 70498; 70551; 74230; 80048; 80053; 81003; 82607; 82962; 83735; 84484; 85025; 85027; 85610; 85730; 92507; 92523; 92526; 92610; 92611; 93005; 97110; 97112; 97116; 97163; 97167; 97530; 97535; 99285; Q9967

== ENCOUNTER 2025-01-04 15:57 | Inpatient (IN) | payer OTHER, SELFPAY ==
--- NOTE | 2025-01-04 14:49 | ADM.HSP ---
Admission - Hospice
History of Present Illness
The Discharge Summary from today, 01/04/25, will serve as the Hospice Admission note.
Physical Exam
General: No Apparent Distress and Comfortable
Respiratory: Clear to Auscultation
Cardiology: Regular Rhythm and S1/S2
GI: Soft, Nontender and Normal Bowel Sounds
Skin: Warm and Dry
Neuro: Awake and Alert
Psych: Calm and Confused
Assessment/Medication Plan
Generic Name Dose Route Start Last Admin
Trade Name Freq PRN Reason Stop Dose Admin
Acetaminophen 650 mg 01/04/25 14:44
Acetaminophen 650 Mg Rectal Suppository RECTAL 02/01/25 14:43
Q4HPRN PRN
mild pain, HERNANDEZ, or temp >100.4F
Bisacodyl 10 mg 01/04/25 14:44
Bisacodyl 10 Mg Rectal Suppository RECTAL 02/01/25 14:43
DAILYPRN PRN
if no BM for 3 days
Glycopyrrolate 0.2 mg 01/04/25 14:44
Glycopyrrolate 0.2 Mg/Ml Vial IV 02/01/25 14:43
Q4HPRN PRN
excessive secretions
Haloperidol Lactate 0.5 mg 01/04/25 14:44
Haloperidol Oral Concentrate (10 Mg/5 Ml) Cup SL 02/01/25 14:43
Q4HPRN PRN
agitation/terminal delirium
Haloperidol Lactate 2 mg 01/04/25 14:44
Haloperidol 5 Mg/Ml 1 Ml Vial IV 02/01/25 14:43
Q4HPRN PRN
agitation/terminal delirium
Hyoscyamine Sulfate 0.125 mg 01/04/25 14:44
Hyoscyamine Sulfate 0.125 Mg/Ml In Oral Syringe SL 02/01/25 14:43
Q4HPRN PRN
excessive secretions
Morphine Sulfate/Sodium Chloride 100 mg in 100 mls @ 0 mls/hr 01/04/25 14:45
Morphine IV
PER PROTOCOL VEGA
Protocol
Per Protocol
Lorazepam 2 mg 01/04/25 14:44
Lorazepam 2 Mg/Ml Vial IV 02/01/25 14:43
Q1HPRN PRN
seizure
Protocol
Morphine Sulfate 1 mg 01/04/25 14:44
Morphine 2 Mg/Ml Syringe IV 01/18/25 14:43
Q1HPRN PRN
moderate-severe pain / dyspnea
Morphine Sulfate 0 mg 01/04/25 14:44
Morphine 2 Mg/Ml Syringe IV 01/18/25 14:43
[id number] PRN
moderate-severe pain / dyspnea
Protocol
Ondansetron HCl 4 mg 01/04/25 14:44
Ondansetron 4 Mg/2 Ml Vial IV 02/01/25 14:43
Q6HPRN PRN
nausea/vomiting
Pharmacy Profile Note 0 unit 01/04/25 15:[address] 1 Unit IV 02/01/25 14:59
DIRECTED VEGA
Prochlorperazine Edisylate 5 mg 01/04/25 14:44
Prochlorperazine 10 Mg/2 Ml Vial IV 02/01/25 14:43
Q6HPRN PRN
nausea/vomiting
--- NOTE | 2025-01-04 15:17 | HOSPNOTE ---
Patient will be inpatient hospice for shortness of breath and agitation. Admissions was called and patient will be moving to [facility].
[2025-01-04] MEDS: MORPHINE SULFATE 1 MG IV ×2 (16:22→22:16)
[2025-01-04] MEDS: ROBINUL 0.2 MG IV ×2 (16:22→22:25)
[2025-01-04] MEDS: ATIVAN 2 MG IV (16:22)
[2025-01-04 18:17] VITALS: BP 142/69
[2025-01-04 22:35] VITALS: BP 141/79
[2025-01-05 07:05] VITALS: BP 108/43
--- NOTE | 2025-01-05 10:16 | W.PN.HOSP.TC ---
Today's Communication/Plan
-
Continue comfort care/hospice
Assessment / Plan
Assessment / Plan
Physical Exam
General: No Apparent Distress and Comfortable
Respiratory: Clear to Auscultation Bilaterally
Cardiology: Regular Rhythm and S1/S2
GI: Soft, Nontender and Normal Bowel Sounds
Skin: Warm and Dry
Neuro: Drowsy, but responds to voice
Psych: Calm and Confused
Assessment/Plan
Presentation with worsening speech disturbance -- worse than usual (noticed to become worse on the morning of 12/31/24), acute on chronic dysphagia, some confusion, lethargy and general weakness/imbalance
Acute/Subacute Strokes -- suspected embolic
History of slow speech since stroke
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
History of moderate L M2 stenosis.
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
Moderate Right ICA stenosis.
Intracranial atherosclerosis (Left M2, Left V4)
History of left CEA
History of left caudate stroke (2016)
Paroxysmal Atrial Fibrillation on Eliquis outpatient
Asymptomatic Bradycardia
Hyperlipidemia
GERD
Parkinsonism/dementia
Vascular Dementia
MDD
Hypertension
Former Smoker
History of Severe Depression with history of Suicidal Ideations
History of Malignant melanoma
RA
BCC
History of severe lumbar scoliosis and diverticulosis
History of spondylolisthesis
Chronic Neuropathy
Restrictive lung disease
Obstructive sleep apnea on BiPAP
Prior cervical and lumbar surgery
Prior spinal stimulator with subsequent stimulator removal however wires still in place
-I spoke to patient's inside patient's room today
-Continue Comfort Care/Hospice
Anticipated Discharge: > 48 hours
Subjective/Interval History
-
Date of Service: January 05, 2025
Patient was seen and examined. He received Morphine overnight, per patient's nurse, for discomfort. This morning he appeared comfortable. His was present in the room.
Objective Data
-
Vital Signs:
Vital Signs
Temp Pulse Resp BP Pulse Ox
98.7 F 54 16 108/43 98
01/05/25 07:05 01/05/25 07:05 01/05/25 07:05 01/05/25 07:05 01/05/25 08:00
--- NOTE | 2025-01-05 11:42 | HOSPNOTE ---
Late Entry for 01/04/25- Patient admitted to inpatient hospice. Patient is inpatient approrpriate for management of dyspnea, pain and excessive secretions. Hospice will visit daily.
[2025-01-05] MEDS: MORPHINE SULFATE 1 MG IV ×2 (11:56→14:17)
[2025-01-05] MEDS: ROBINUL 0.2 MG IV ×2 (12:11→16:23)
--- NOTE | 2025-01-05 12:48 | HOSPNOTE ---
vitals 98.7 pulse 70, resp 10 and 108/43. Patient assessed in bed and minimally responsive. Mouth care only. Moist cough noted. Mild FLACC score currently. Patient just received a prn morphine iv dose at 11:56 am prior to assessment as well as
Robinul at 12:11pm. Patient has had 2 prn morphine in the last 24 hours. SN met with daughter Isis and sister Renuka. Discussed current status and assessment and what to expect moving forward. All questions answered and emotional support provided.
Patient remains GIP appropriate for IV management of pain and excessive secretions. Informal conference with nurse [place]. Daily SN.
--- NOTE | 2025-01-05 14:45 | CHAP ---
Farzad was resting comfortably, minimally responsive. Spouse, Genie, sister and brother in law, and granddaughter were present. They shared background about Farzad, who has [employer] dena. talia Rony recently provided Sacrament of the Sick.
Emt I/99 provided emotional and spiritual support to patient and family through presence, dialogue, Scripture reading and prayer. Prayer blanket also provided. Will continue support through weekly visits.
[2025-01-05 21:24] VITALS: BP 127/66
[2025-01-06 07:05] VITALS: BP 154/65
[2025-01-06] MEDS: ROBINUL 0.2 MG IV (07:39)
--- NOTE | 2025-01-06 08:16 | W.PN.HOSP.TC ---
Today's Communication/Plan
-
Continue Comfort Care/Hospice
Assessment / Plan
Assessment / Plan
Physical Exam
General: No Apparent Distress and Comfortable
Respiratory: Clear to Auscultation Bilaterally
Cardiology: Regular Rhythm and S1/S2
GI: Soft, Nontender and Normal Bowel Sounds
Skin: Warm and Dry
Neuro: Drowsy, but responds to questions
Psych: Calm and Confused
Assessment/Plan
Presentation with worsening speech disturbance -- worse than usual (noticed to become worse on the morning of 12/31/24), acute on chronic dysphagia, some confusion, lethargy and general weakness/imbalance
Acute/Subacute Strokes -- suspected embolic
History of slow speech since stroke
Right FREE LANCE MODEL stroke (07/2024)
History of moderate L M2 stenosis.
Chronic right FREE LANCE MODEL, MCA and left caudate nuclear infarcts
Moderate Right ICA stenosis.
Intracranial atherosclerosis (Left M2, Left V4)
History of left CEA
History of left caudate stroke (2017)
Paroxysmal Atrial Fibrillation on Eliquis outpatient
Asymptomatic Bradycardia
Hyperlipidemia
GERD
Parkinsonism/dementia
Vascular Dementia
MDD
Hypertension
Former Smoker
History of Severe Depression with history of Suicidal Ideations
History of Malignant melanoma
RA
BCC
History of severe lumbar scoliosis and diverticulosis
History of spondylolisthesis
Chronic Neuropathy
Restrictive lung disease
Obstructive sleep apnea on BiPAP
Prior cervical and lumbar surgery
Prior spinal stimulator with subsequent stimulator removal however wires still in place
-I spoke to patient's inside patient's room today.
-Appears comfortable. Received last dose of IV Morphine yesterday.
-Continue Comfort Care/Hospice.
Anticipated Discharge: > 48 hours
Subjective/Interval History
-
Date of Service: January 06, 2025
Patient was seen and examined. He denied any pain, shortness of breath or any other complaints. His was at bedside.
Objective Data
-
Vital Signs:
Vital Signs
Temp Pulse Resp BP Pulse Ox
97.6 F 57 16 154/65 94
01/06/25 07:05 01/06/25 07:05 01/06/25 07:05 01/06/25 07:05 01/06/25 07:05
I&O
01/05/25 01/06/25 01/07/25
06:59 06:59 06:59
Intake Total 0 / 0
Balance 0 / 0
--- NOTE | 2025-01-06 12:53 | HOSPNOTE ---
Patient was awake, alert oriented x2. Asking for water. Wet oral swabs given by nurse. Smiling, answering simple questions and comfortable. Denies pain or SOB. VSS. Morphine PRN x2 doses and Robinul x3 doses in 24 hours. and granddaughter at
bedside. Discussed patient could be rallying today. Emotional support provided. Patient to remain GIP for management of symptom with IV morphine and Robinul.
--- NOTE | 2025-01-06 16:04 | CHAP ---
Farzad's , Genie, requested a visit. She asked about the listing of her 's room number and [place] affiliation, as Msgr. Haydeningasammy was unable to locate him yesterday when he came to . We then had an edifying conversation about the
spiritual life. Farzad woke up, smiled, and reached for the conceptor's hand. Emotional and spiritual support provided. This conceptor contacted Admissions, and they corrected the [place] info.
[2025-01-06 23:00] VITALS: BP 167/69
[2025-01-07 07:05] VITALS: BP 159/78
--- NOTE | 2025-01-07 07:45 | W.PN.HOSP.TC ---
Today's Communication/Plan
-
see bold
Assessment / Plan
Assessment / Plan
Gen: NAD, Awake and alert
Eyes: EOMI, PERRLA, no scleral icterus.
Neck: supple.
CV: RRR, +S1/S2, no m/r/g.
Resp: CTAB, no rales, wheezes, or rhonchi.
Abd: +BS, soft, NT, ND
Skin: No rashes.
Neuro: CN 2-12 intact, non-focal.
Psych: Normal mood and affect.
Presentation with worsening speech disturbance -- worse than usual (noticed to become worse on the morning of 12/31/24), acute on chronic dysphagia, some confusion, lethargy and general weakness/imbalance
Acute/Subacute Strokes -- suspected embolic
History of slow speech since stroke
Right PLANNING TECHNICIAN stroke (07/2024)
History of moderate L M2 stenosis.
Chronic right PLANNING TECHNICIAN, MCA and left caudate nuclear infarcts
Moderate Right ICA stenosis.
Intracranial atherosclerosis (Left M2, Left V4)
History of left CEA
History of left caudate stroke (2016)
Paroxysmal Atrial Fibrillation on Eliquis outpatient
Asymptomatic Bradycardia
Hyperlipidemia
GERD
Parkinsonism/dementia
Vascular Dementia
MDD
Hypertension
Former Smoker
History of Severe Depression with history of Suicidal Ideations
History of Malignant melanoma
RA
BCC
History of severe lumbar scoliosis and diverticulosis
History of spondylolisthesis
Chronic Neuropathy
Restrictive lung disease
Obstructive sleep apnea on BiPAP
Prior cervical and lumbar surgery
Prior spinal stimulator with subsequent stimulator removal however wires still in place
-Continue Comfort Care/Hospice, Ativan/morphine
Anticipated Discharge: Within 24 hours
Subjective/Interval History
-
Date of Service: January 07, 2025
No new complaints.
Objective Data
-
Vital Signs:
Vital Signs
Temp Pulse Resp BP Pulse Ox
97.8 F 58 18 167/69 95
01/06/25 23:00 01/06/25 23:00 01/06/25 23:00 01/06/25 23:00 01/07/25 01:25
I&O
01/06/25 01/07/25 01/08/25
06:59 06:59 06:59
Intake Total 0 / 0 0 / 0
Balance 0 / 0 0 / 0
--- NOTE | 2025-01-07 10:04 | PTCARENOTE ---
Overnight RN spoke with this RN about family being interested in home hospice since he is not requiring any medications at this time and seems comfortable. first sampler made aware and will call , made aware as well. No new orders at this time.
--- NOTE | 2025-01-07 10:36 | CM ---
Addendum entered by Virgil Morales 01/07/25 11:16:
According to revenue liaison, pt's family requested pt be discharged home tomorrow with home hospice.
IMM reviewed with pt's spouse and daughter.
UC to arrange ambulance transport BLS for tomorrow 01/08/25 with requested time 12:00 p.m. PMNC completed and left with UC. Out of hospital DNR signed by and is on the chart.
Per revenue liaison, all DME will be delivered to pt's home by tomorrow morning.
D/C plan: home tomorrow with continue of hospice.
Original Note:
CM following re: discharge planning.
Pt has been receiving hospice care services since 01/04/25, continue supportive care.
D/C plan: continue inpatient hospice level of care with hospice.
CM is available for emotional support
--- NOTE | 2025-01-07 10:52 | HOSPNOTE ---
The plan is for the patient to go home tomorrow with hospice. Equipment was ordered and will be delivered tomorrow in the am. If transport could be scheduled for 12noon. Once patient is home we will visit the patient review the medications.
Attending and CM updated with plan. The spouse would like patient home.
--- NOTE | 2025-01-07 11:25 | HOSPNOTE ---
MEDICAL TECHNOLOGIST BLOOD BANK VISITED 79 YEAR OLD PATIENT TO CONDUCT INITIAL SENIOR CYTOTECHNOLOGIST ASSESSMENT. PATIENT RECENTLY ADMITTED ONTO HOSPICE SERVICES AND [facility] LEVEL OF CARE WITH THE PRIMARY DIAGNOSIS OF CVA. SENIOR CYTOTECHNOLOGIST GREETED PATIENT AND PATIENT'S FAMILY MEMBER WHILE
ENTERING THE ROOM. PATIENT LAYING IN BED LOOKING AT THE TV WITH NO SOUND AND PATIENT'S FAMILY MEMBER PACING THE FLOOR. SENIOR CYTOTECHNOLOGIST INTRODUCED HERSELF TO PATIENT AND PATIENT'S DAUGHTER GERA. PATIENT RESPONDED HI. GERA REPORTED SHE'S TRYING TO GET IN
TOUCH WITH PATIENT'S SPOUSE CELIA. GERA REPORTED PATIENT ISN'T ON ANY MORPHINE AND HASN'T EATEN IN DAYS. GERA REPORTED FAMILY PROVIDED PATIENT WITH LIQUIDS THROUGH [facility] TO WET HIS MOUTH YESTERDAY AND NOTHING TODAY. GERA WAS ABLE TO
GET IN TOUCH WITH SPOUSE AND JOINED THE VISIT VIA TELEPHONE. SPOUSE REPORTED PATIENT'S APPETITE DECREASED PRIOR TO HOSPITALIZATION. PATIENT REPORTED HE'S OKAY AND DENIES PAIN, NO SIGNS OF DISTRESS OBSERVED. PATIENT IS 1 OF 4 SIBLINGS, BROTHER
, MANDEEP RESIDES IN [place] AND RADHA RESIDES IN [place]. 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 PATIENT HAS 4 CHILDREN YOUNG RESIDES IN [place], ANDREW RESIDES IN [place], AND [place]
RESIDES WITH PARENTS AND 5 GRANDCHILDREN. SPOUSE AND MANDEEP ARE THE PRIMARY CAREGIVERS AND SPOUSE IS THE POA. SPOUSE REPORTED SHE SPOKE TO NURSE HILL AND THAT PATIENT WILL BE DISCHARGED HOME TOMORROW, EQUIPMENT WILL BE DELIVERED AND
TRANSPORTATION ARRANGED. SPOUSE AND GERA ASKED SENIOR CYTOTECHNOLOGIST ABOUT HOSPICE NURSE VISITS. SENIOR CYTOTECHNOLOGIST INFORMED FAMILY THAT A HOSPICE WILL VISIT TOMORROW AND COMPLETE A HOME ASSESSMENT, REVIEW HOSPICE PACKET AND OTHER HOSPICE INFORMATION. 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
BEING OUTSIDE. PATIENT IS [employer] AND IS AFFILIATES WITH [employer]. PATIENT'S SISTER MANDEEP CAME TO VISIT PATIENT AND PATIENT SMILED WHILE MANDEEP WAS TALKING TO HIM. MANDEEP INFORMED PATIENT THAT HIS OTHER SISTER RADHA WAS
COMING TO VISIT HIM TODAY WELL. SERGIO CAME IN TO SPEAK WITH FAMILY ABOUT PATIENT'S DISCHARGE HOME TOMORROW WITH HOSPICE SERVICES PROVIDED IN THE HOME. PRAYER AND EMOTIONAL SUPPORT PROVIDED.
PATIENT MEETS CRITERIA FOR SN ASSESSMENTS, MANAGEMENT OF DYSPNEA, AND AGITATION THAT COULD NOT BE MANAGED IN AN OUTPATIENT SETTING. PATIENT WILL BE DISCHARGE HOME TOMORROW Tuesday01/09/2024.
SENIOR CYTOTECHNOLOGIST VISITS CONDUCTED ONCE A WEEK WHILE ON GIP LOC TO PROVIDE SUPPORTIVE SERVICES AND TO MONITOR FOR ADDITIONAL SERVICES.
[2025-01-07 19:53] VITALS: BP 162/73
[2025-01-08 07:11] VITALS: BP 139/65
--- NOTE | 2025-01-08 08:42 | W.PN.HOSP.TC ---
Addendum entered and electronically signed by Jairo Ohara MD 01/08/25 10:59:
Total time spent on d/c = 31 min. This included today's physical exam, progress note, review of laboratory and diagnostic data, preparation of discharge documents and prescriptions, and discussions about the pt's hospital course and discharge plan
with the patient and other medical social consultant involved in the patient's care.
Original Note:
Today's Communication/Plan
-
likely d/c to hospice later today
Assessment / Plan
Assessment / Plan
Gen: NAD, Awake and alert
Eyes: EOMI, PERRLA, no scleral icterus.
Neck: supple.
CV: RRR, +S1/S2, no m/r/g.
Resp: CTAB, no rales, wheezes, or rhonchi.
Abd: +BS, soft, NT, ND
Skin: No rashes.
Neuro: CN 2-12 intact, non-focal.
Psych: Normal mood and affect.
Presentation with worsening speech disturbance -- worse than usual (noticed to become worse on the morning of 12/31/24), acute on chronic dysphagia, some confusion, lethargy and general weakness/imbalance
Acute/Subacute Strokes -- suspected embolic
History of slow speech since stroke
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
History of moderate L M2 stenosis.
Chronic right NOZZLE CEMENT SPRAYER HELPER, MCA and left caudate nuclear infarcts
Moderate Right ICA stenosis.
Intracranial atherosclerosis (Left M2, Left V4)
History of left CEA
History of left caudate stroke (2016)
Paroxysmal Atrial Fibrillation on Eliquis outpatient
Asymptomatic Bradycardia
Hyperlipidemia
GERD
Parkinsonism/dementia
Vascular Dementia
MDD
Hypertension
Former Smoker
History of Severe Depression with history of Suicidal Ideations
History of Malignant melanoma
RA
BCC
History of severe lumbar scoliosis and diverticulosis
History of spondylolisthesis
Chronic Neuropathy
Restrictive lung disease
Obstructive sleep apnea on BiPAP
Prior cervical and lumbar surgery
Prior spinal stimulator with subsequent stimulator removal however wires still in place
-Continue Comfort Care/Hospice, Ativan/morphine PRN
Anticipated Discharge: Today
Subjective/Interval History
-
Date of Service: January 08, 2025
No new complaints.
Objective Data
-
Vital Signs:
Vital Signs
Temp Pulse Resp BP Pulse Ox
98.1 F 56 16 139/65 97
01/08/25 07:11 01/08/25 07:11 01/08/25 07:11 01/08/25 07:11 01/08/25 07:11
I&O
01/07/25 01/08/25 01/09/25
06:59 06:59 06:59
Intake Total 0 / 0 0 / 0
Balance 0 / 0 0 / 0
--- NOTE | 2025-01-08 10:56 | HOSPNOTE ---
Patient is scheduled to go home today with hospice. All equipment was ordered and delivered. Once patient is home we will have a nurse see patient explain about home hospice and give all appropriate numbers to call.
[2025-01-08 11:29] VITALS: BP 142/63
--- NOTE | 2025-01-08 12:16 | W.DCSUMMARY ---
Discharge Summary
Discharge Data
Date of Admission: 01/04/25
Date of Discharge: 01/08/25
-
Pending Results: No
Hospital Course
Primary diagnoses:
Acute/subacute cerebrovascular accidents, likely embolic
Admission for inpatient hospice
Secondary diagnoses:
History of slow speech since stroke
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
History of moderate L M2 stenosis.
Chronic right NEEDLE PUNCH MACHINE OPERATOR, MCA and left caudate nuclear infarcts
Moderate Right ICA stenosis.
Intracranial atherosclerosis (Left M2, Left V4)
History of left CEA
History of left caudate stroke (2016)
Paroxysmal Atrial Fibrillation on Eliquis outpatient
Asymptomatic Bradycardia
Hyperlipidemia
GERD
Parkinsonism/dementia
Vascular Dementia
MDD
Hypertension
Former Smoker
History of Severe Depression with history of Suicidal Ideations
History of Malignant melanoma
RA
BCC
History of severe lumbar scoliosis and diverticulosis
History of spondylolisthesis
Chronic Neuropathy
Restrictive lung disease
Obstructive sleep apnea on BiPAP
Prior cervical and lumbar surgery
Prior spinal stimulator with subsequent stimulator removal however wires still in place
Consults:
None
Imaging:
None
Hospital course: 79-year-old male who was admitted to inpatient hospice on January 04, 2025 after being hospitalized for tiny nonhemorrhagic acute/subacute infarcts within the left centrum semiovale/periventricular region. The decision was made to
transfer the patient to inpatient hospice. While hospitalized he was treated with comfort care medications including glycopyrrolate, Ativan, morphine. He is being discharged to home hospice at this time.
Discharge Plan
-
Patient Disposition: Home with Hospice
Discharge Diagnosis/Procedures: Acute/subacute cerebrovascular accidents, likely embolic
Condition: Fair
Diet: Other diet
Additional Diets: comfort feeds
Activity: With assistance
Driving Restrictions: No driving
Other Services: Hospice
Referrals:
UNKNOWN - PT DOES,NOT KNOW [Family Provider]
Prescriptions:
Discontinued
escitalopram oxalate 20 MG tablet
20 mg PO DAILY
risperidone 1 mg Tablet
1 mg PO HS
pramipexole [Mirapex ER] 1.5 mg Tablet Extended Release 24 Hr
1.5 mg PO QPM
pantoprazole [Protonix] [address] for susp in packet
40 mg PO HS
Visbiome 112.5 billion cell Capsule
1 cap PO DAILY
pramipexole 0.375 mg tablet extended release 24 hr
0.375 mg PO QPM
Eliquis 5 mg Tablet
5 mg PO BID
Discharge Orders:
Discharge Patient (As Directed); Ordered 01/08/25
Ordered By: Jairo Ohara
Discharge Date and Time
Discharge Date/Time: 01/08/25 12:13
Print Language: YAKUT
== END 2025-01-08 12:13 | disposition hospice, home (50) | DRG 951 ==
LOC: 2 NORTH 15:57
PROVIDERS: ADMITTING PHYSICIAN Hospitalist; ATTENDING PHYSICIAN Internal Medicine
DX: Z51.5 Encounter for palliative care (principal); I63.40 Cerebral infarction due to embolism of unspecified cerebral artery; F01.53 Vascular dementia, unspecified severity, with mood disturbance; C44.91 Basal cell carcinoma of skin, unspecified; E78.5 Hyperlipidemia, unspecified; F01.50 Vascular dementia, unspecified severity, without behavioral disturbance, psychotic disturbance, mood disturbance, and anxiety; G20.C Parkinsonism, unspecified; G47.33 Obstructive sleep apnea (adult) (pediatric); G62.9 Polyneuropathy, unspecified; I10 Essential (primary) hypertension; I48.0 Paroxysmal atrial fibrillation; I65.21 Occlusion and stenosis of right carotid artery; J98.4 Other disorders of lung; K21.9 Gastro-esophageal reflux disease without esophagitis; I69.118 Other symptoms and signs involving cognitive functions following nontraumatic intracerebral hemorrhage; I69.322 Dysarthria following cerebral infarction; Z87.891 Personal history of nicotine dependence; Z79.01 Long term (current) use of anticoagulants; Z79.899 Other long term (current) drug therapy
CPT/HCPCS: 99406